=== PATIENT | female | born 1975 | race Two or more races ===

== ENCOUNTER → 2016-07-13 | Outpatient (CLI) | payer OTHER ==
--- NOTE | 2016-07-13 18:07 | MR ---
EXAMINATION TYPE: MR shoulder RT wo con DATE OF EXAM: 07/13/2016 5:59 PM COMPARISON: NONE HISTORY: pain with Limited ROM for over a year TECHNIQUE: Multiplanar, multisequence imaging of the right shoulder is performed without contrast. FINDINGS: Rotator Cuff: There is a complete tear of the anterior fibers of the supraspinatus tendon which is th rough thickness measuring approximately 1.4 cm in AP dimension and a length of 1.8 cm. Acromioclavicular Joint: Hypertrophic change of the AC joint noted. No significant impingement. Glenohumeral Joint: There is a small amount of fluid in the glenohumeral joint. Inferior glenohumeral ligament intact. Labrum: The labrum appears grossly intact given limitation of non-arthrogram study. Biceps Tendon: Biceps tendon is situated within the bicipital groove. There is increased intrasubstan ce signal seen within the intracapsular portion of the biceps tendon compatible tendinopathy and part ial intrasubstance tear. No retraction. Bone marrow signal: No focal abnormal marrow signal is appreciated. Other: No additional significant abnormality is appreciated. IMPRESSION: There is a large through thickness tear involving the distal margin of the supraspinatus tendon measu ring approximately 1.8 x 1.4 cm. Bicipital tendinosis with intrasubstance signal within the intracapsular portion of the tendon sugges tive of intrasubstance tear but no through thickness tear or retraction. AC joint arthropathy but no significant impingement.
--- NOTE | 2016-07-13 18:12 | MR ---
EXAMINATION TYPE: MR shoulder LT wo con DATE OF EXAM: 07/13/2016 5:59 PM COMPARISON: NONE HISTORY: pain with Limited ROM for over a year TECHNIQUE: Multiplanar, multisequence imaging of the left shoulder is performed without contrast. FINDINGS: Exam limited by patient motion artifact Rotator Cuff: There is a large through thickness tear involving the supraspinatus tendon measuring ap proximately 1.6 cm in AP dimension and extending a length of 1.8 cm. Infraspinatus tendon appears int act with degrees of tendinopathy. Subscapularis tendon demonstrates increased signal near its inserti on suspicious for partial tear. Acromioclavicular Joint: Arthropathy of the AC joint with narrowing and hypertrophic changes but no d efinite impingement Glenohumeral Joint: Small amount of fluid within the joint space. Inferior glenohumeral ligament inta ct. Labrum: Anterior superior labral tear noted.. Biceps Tendon: Tendon appears situated within the bicipital groove. However, there is intrasubstance signal throughout the biceps tendon compatible with intrasubstance tear or split tear and tendinopath y extending through the intracapsular portion and biceps anchor. Bone marrow signal: No focal abnormal marrow signal is appreciated. Other: No additional significant abnormality is appreciated. IMPRESSION: 1. Large through thickness tear distal margin supraspinatus tendon measuring 1.6 x 1.8 cm. 2. Subscapularis tendinopathy and partial tear near its insertion 3. Bicipital tendinosis with intrasubstance or split tear but no retraction extending from the bicipi zhanna groove to the bicipital anchor. 4. Anterior superior labral tear
== END | disposition home or self-care (01) ==
LOC: RADMRIMAIN 16:50
PROVIDERS: ATTEND Psychiatry & Neurology Pain Medicine
DX: M75.121 Complete rotator cuff tear or rupture of right shoulder, not specified as traumatic (principal); M25.511 Pain in right shoulder; M25.512 Pain in left shoulder

== ENCOUNTER 2016-08-07 00:35 | Emergency (ER) | payer OTHER ==
[2016-08-07] MEDS ORDERED: HYDROmorphone 1 MG/ML 1 ML SYRINGE IVP STA (01:21)
[2016-08-07] MEDS ORDERED: ONDANSETRON 4 MG/2 ML VIAL IVP STA (01:21)
[2016-08-07] MEDS ORDERED: SODIUM CHLORIDE 0.9% 1,000 ML IV STA (01:21)
[2016-08-07 01:47] LABS: Anisocytosis Slight; Basophils % (A) 1 %; CH 22.1; CHCM 30.6; Eosinophils # (A) 0.6 k/uL (0-0.7); Eosinophils % (A) 6 %; HCT 35.3 % (34.0-46.0); HGB 10.7 gm/dL (11.4-16.0); Hypochromasia Moderate; Luc # (Auto) 0.17; Luc % (Auto) 2; Lymphocytes # (A) 2.2 k/uL (1.0-4.8); Lymphocytes % (A) 24 %; MCHC 30.4 g/dL (31.0-37.0); MCV 72.4 fL (80.0-100.0); Microcytosis Moderate; Monocytes # (A) 0.5 k/uL (0-1.0); Monocytes % (A) 6 %; Neutrophils # (A) 5.8 k/uL (1.3-7.7); Neutrophils % (A) 62 %; RBC 4.88 m/uL (3.80-5.40); RDW 17.1 % (11.5-15.5); WBC 9.3 k/uL (3.8-10.6); WBC (Perox) 9.49
--- NOTE | 2016-08-07 01:52 | ED ---
Abdominal Pain HPI - General Chief Complaint: Abdominal Pain Stated Complaint: Stomach Pain Time Seen by Provider: 08/07/16 01:11 Source: patient, RN notes reviewed Mode of arrival: ambulatory Limitations: no limitations - History of Present Illness Initial Comments: Patient is a 41-year-old female chief complaint of right upper quadrant pain while she eats for the past 2-3 weeks. Patient reports that the pain occurs it directly after she eats. She does have a history of H. pylori. She denies any previous history of gallbladder problems. She also reports that she's had intermittent diarrhea over the past week. She denies any other symptoms including fever or chills. She denies any chest pain or shortness breath. Patient reports that the pain is only over the right upper quadrant denies any radiation towards the back. - Related Data Home Medications Medication Instructions Recorded Confirmed Gabapentin [Neurontin] 600 mg PO TID 01/13/15 12/26/15 Meloxicam [Mobic] 7.5 mg PO BID 01/13/15 12/26/15 Phentermine HCl [Adipex-P] 1 tab PO DAILY 12/26/15 12/26/15 Previous Rx's Medication Instructions Recorded Albuterol Inhaler [Ventolin Hfa 1 - 2 puff INHALATION Q6HR #1 08/05/15 Inhaler] inhaler Ondansetron Odt [Zofran ODT] 4 mg PO Q8HR PRN #10 tab 11/11/15 HYDROcodone/APAP 5-325MG [[place] 1 tab PO Q6HR PRN #12 tab 08/07/16 5-325] Ondansetron Odt [Zofran Odt] 4 mg PO Q8HR PRN #10 tab 08/07/16 Allergies Allergy/AdvReac Type Severity Reaction Status Date / Time No Known Allergies Allergy Verified 08/07/16 00:41 Review of Systems ROS Statement: Those systems with pertinent positive or pertinent negative responses have been documented in the HPI. ROS Other: All systems not noted in ROS Statement are negative. Past Medical History Past Medical History: Musculoskeletal Disorder, Osteoarthritis (OA) Additional Past Medical History / Comment(s): ANEMIA. SCOLIOSIS History of Any Multi-Drug Resistant Organisms: None Reported Past Surgical History: Appendectomy, Section, Tonsillectomy, Tubal Ligation Past Anesthesia/Blood Transfusion Reactions: No Reported Reaction Past Psychological History: ADD/ADHD Smoking Status: Former smoker Past Alcohol Use History: None Reported Additional Past Alcohol Use History / Comment(s): QUIT 07/2014 Past Drug Use History: None Reported - Past Family History Mother Family Medical History: No Reported History General Exam - General Exam Comments Initial Comments: Patient is a 41 year old female. Patient is in no acute distress. Limitations: no limitations General appearance: alert, in no apparent distress Head exam: Present: atraumatic, normocephalic, normal inspection Eye exam: Present: normal appearance, PERRL, EOMI. Absent: scleral icterus, conjunctival injection, periorbital swelling ENT exam: Present: normal exam, mucous membranes moist Neck exam: Present: normal inspection. Absent: tenderness, meningismus, lymphadenopathy Respiratory exam: Present: normal lung sounds bilaterally. Absent: respiratory distress, wheezes, rales, rhonchi, stridor Cardiovascular Exam: Present: regular rate, normal rhythm, normal heart sounds. Absent: systolic murmur, diastolic murmur, rubs, gallop, clicks GI/Abdominal exam: Present: soft, tenderness (mild RUQ tenderness. ), normal bowel sounds. Absent: distended, guarding, rebound, rigid Extremities exam: Present: normal inspection, full ROM, normal capillary refill. Absent: tenderness, pedal edema, joint swelling, calf tenderness Back exam: Present: normal inspection Neurological exam: Present: alert, oriented X3, CN II-XII intact Psychiatric exam: Present: normal affect, normal mood Skin exam: Present: warm, dry, intact, normal color. Absent: rash Course Vital Signs 08/07/16 08/07/16 00:39 02:57 Temperature 96.6 F L 98 F Pulse Rate 84 88 Respiratory 20 18 Rate Blood Pressure 137/77 140/74 O2 Sat by Pulse 98 98 Oximetry Medical Decision Making - Medical Decision Making Patient is a 41 year old female with intermittent RUQ pain with eating. She states the pain is crampy. Patient labs were reviewed and are negative for any acute processs. Patient will be given Rx for outpatient US, pain medication and nausea medication. PAtient understands return parameters and advised to follow up with GI specialist and PCP. Return parameters discussed. Patient will be diagnosed with biliary colic and advised to avoid fatty foods. - Lab Data Result diagrams: 08/07/16 01:35 08/07/16 01:35 Lab Results 08/07/16 08/07/16 08/07/16 Range/Units 01:35 01:35 02:13 WBC 9.3 (3.8-10.6) k/uL RBC 4.88 (3.80-5.40) m/uL Hgb 10.7 L (11.4-16.0) gm/dL Hct 35.3 (34.0-46.0) % MCV 72.4 L (80.0-100.0) fL MCH 22.0 L (25.0-35.0) pg MCHC 30.4 L (31.0-37.0) g/dL RDW 17.1 H (11.5-15.5) % Plt Count 255 (150-450) k/uL Neutrophils % 62 % Lymphocytes % 24 % Monocytes % 6 % Eosinophils % 6 % Basophils % 1 % Neutrophils # 5.8 (1.3-7.7) k/uL Lymphocytes # 2.2 (1.0-4.8) k/uL Monocytes # 0.5 (0-1.0) k/uL Eosinophils # 0.6 (0-0.7) k/uL Basophils # 0.0 (0-0.2) k/uL Hypochromasia Moderate Anisocytosis Slight Microcytosis Moderate Sodium 140 (137-145) mmol/L Potassium 3.8 (3.5-5.1) mmol/L Chloride 105 (98-107) mmol/L Carbon Dioxide 26 (22-30) mmol/L Anion Gap 9 mmol/L BUN 14 (7-17) mg/dL Creatinine 0.50 L (0.52-1.04) mg/dL Est GFR (MDRD) Af Amer >60 (>60 ml/min/1.73 sqM) Est GFR (MDRD) Non-Af >60 (>60 ml/min/1.73 sqM) Glucose 186 H (74-99) mg/dL Calcium 8.8 (8.4-10.2) mg/dL Total Bilirubin 0.4 (0.2-1.3) mg/dL AST 21 (14-36) U/L ALT 32 (9-52) U/L Alkaline Phosphatase 75 (38-126) U/L Total Protein 6.5 (6.3-8.2) g/dL Albumin 3.4 L (3.5-5.0) g/dL Amylase 38 (30-110) U/L Lipase 43 (23-300) U/L Urine Color Yellow Urine Appearance Clear (Clear) Urine pH 5.5 (5.0-8.0) Ur Specific [place] 1.024 (1.001-1.035) Urine Protein Trace H (Negative) Urine Glucose (UA) 4+ H (Negative) Urine Ketones Trace H (Negative) Urine Blood Negative (Negative) Urine Nitrate Negative (Negative) Urine Bilirubin Negative (Negative) Urine Urobilinogen 2.0 (<2.0) mg/dL Ur Leukocyte Esterase Negative (Negative) - Radiology Data Radiology results: report reviewed KUB is negative for any acute process. Disposition Clinical Impression: Biliary colic, Gastroenteritis Disposition: HOME SELF-CARE Condition: Good Instructions: Biliary Colic (ED), Abdominal Pain (ED) Additional Instructions: Patient instructed to avoid high fatty foods as this can exacerbate biliary colic. Patient advised to follow up with primary care provider within the next 2-3 days. Complete outpatient ultrasound. Return to the EC if any alarming signs or symptoms occur. Prescriptions: HYDROcodone/APAP 5-325MG [[place] 5-325] 1 tab PO Q6HR PRN #12 tab PRN Reason: Pain Ondansetron Odt [Zofran Odt] 4 mg PO Q8HR PRN #10 tab PRN Reason: Nausea Referrals: Jimmie Gutiérrez MD [Primary Care Provider] - 1-2 days Time of Disposition: 02:13
[2016-08-07 01:58] LABS: ALT 32 U/L (9-52); AST 21 U/L (14-36); Alkaline Phosphatase 75 U/L (38-126); Amylase 38 U/L (30-110); Anion Gap 9 mmol/L; Blood Urea Nitrogen 14 mg/dL (7-17); Calcium 8.8 mg/dL (8.4-10.2); Carbon Dioxide 26 mmol/L (22-30); Chloride 105 mmol/L (98-107); Glucose 186 mg/dL (74-99); Non-African American GFR(MDRD) >60 (>60 ml/min/1.73 sqM); Potassium 3.8 mmol/L (3.5-5.1); Sodium 140 mmol/L (137-145); Total Bilirubin 0.4 mg/dL (0.2-1.3); Total Protein 6.5 g/dL (6.3-8.2)
--- NOTE | 2016-08-07 02:23 | XR ---
EXAMINATION TYPE: XR KUB DATE OF EXAM: 08/07/2016 1:50 AM CLINICAL HISTORY: Right upper quadrant abdominal pain TECHNIQUE: 2 frontal upright radiographs of abdomen were obtained. COMPARISON: None. FINDINGS: There is mild gaseous distention of bowel loops with few air-fluid levels with mild ileus or enteriti s changes. No significant bowel obstruction is noted. There is no visceromegaly, pneumoperitoneum, or abnormal calcification appreciated. The lung bases are clear and the osseous structures are intact. S-shaped scoliosis is noted in the thoracolumbar spi ne. IMPRESSION: Mild ileus or enteritis changes. No significant bowel obstruction is noted.
[2016-08-07 02:24] LABS: Appearance,Urine Clear (Clear); Bilirubin,Urine Negative (Negative); Glucose,Urine (UA) 4+ (Negative); Ketones,Urine Trace (Negative); Leukocyte Esterase,Urine Negative (Negative); Nitrite,Urine Negative (Negative); PH, Urine 5.5 (5.0-8.0); Protein,Urine Trace (Negative); Specific Gravity,Urine 1.024 (1.001-1.035); UA Billing (MACRO vs. MICRO) CHEM
[2016-08-07 02:58] VITALS: BP 140/74; PULSE 88; RESP 18; TEMP 98
== END 2016-08-07 02:58 | disposition home or self-care (01) ==
LOC: EC 00:35
DX: K52.9 Noninfective gastroenteritis and colitis, unspecified (principal); K80.50 Calculus of bile duct without cholangitis or cholecystitis without obstruction; M19.90 Unspecified osteoarthritis, unspecified site; Z87.891 Personal history of nicotine dependence; Z79.899 Other long term (current) drug therapy
CPT/HCPCS: 36415; 80053; 82150; 83690; 85025; 81003; 74000; 99284; 96374; 96375; 96361; J2405; J1170; 76705

== ENCOUNTER → 2016-08-07 | Outpatient (CLI) | payer OTHER ==
--- NOTE | 2016-08-07 14:07 | US ---
EXAMINATION TYPE: US gallbladder DATE OF EXAM: 08/07/2016 1:40 PM COMPARISON: NONE CLINICAL HISTORY: RUQ pain,R10.11. EXAM MEASUREMENTS: Liver Length: 14.0 cm Gallbladder Wall: 0.2 cm CBD: 0.4 cm Right Kidney: 13.0 x 4.7 x 6.2 cm Patient was in ER last night, and came in today with an outpatient order Pancreas: not well visualized due to body habitus and bowel gas Liver: wnl Gallbladder: No stones seen Evidence for sonographic Wilkins's sign: Yes CBD: wnl Right Kidney: No hydronephrosis or masses seen IMPRESSION: No distinct abnormality appreciated.
== END | disposition home or self-care (01) ==
LOC: RADUSMAIN 13:16
PROVIDERS: ATTEND Physician Assistant Medical
DX: R10.11 Right upper quadrant pain (principal)
CPT/HCPCS: 76705

== ENCOUNTER → 2016-08-13 | Outpatient (CLI) | payer OTHER ==
--- NOTE | 2016-08-13 15:21 | NM ---
EXAMINATION TYPE: NM hepatobiliary w EF DATE OF EXAM: 08/13/2016 3:12 PM COMPARISON: NONE INDICATION: Right upper quadrant pain TECHNIQUE: After the intravenous administration of 5.33 mCi Tc 99m Mebrofenin hepatobiliary scintigra phy is performed. Images were obtained immediately post injection. FINDINGS: There is prompt uptake and excretion of radiotracer by the liver. Extrahepatic ducts are identified at minutes. The gallbladder is visualized within 8 minutes. Small bowel activity is noted within 63 minutes. At one hour 8 ounces of oral ensure plus is given to mimic CCK and gallbladder ejection fraction is c alculated at 86 %, which is elevated.. (Normal >35% and <80%.). IMPRESSION: 1. Elevated ejection fraction. Correlate for biliary hyperkinesia.
== END | disposition home or self-care (01) ==
LOC: RADNMMAIN 13:05
PROVIDERS: ATTEND Internal Medicine
DX: R10.11 Right upper quadrant pain (principal)
CPT/HCPCS: 78226; A9537

== ENCOUNTER 2016-09-06 06:34 | Day surgery (SDC) | payer OTHER ==
[2016-09-02 11:10] VITALS: BMI 38.9
[~2016-09-06 06:34] MED LIST: DEXAMETHASONE SOD PHOSPHATE 10 MG/ML 1 ML VIAL IV ONE; HEPARIN SODIUM,PORCINE 5,000 UNIT/ML 1 ML VIAL SQ ONE; LIDOCAINE 1% 20 ML VIAL (10MG/ML) FOR IV START INTRADERMA PRN; MIDAZOLAM 2 MG/2 ML VIAL IV PRN; SCOPOLAMINE 1.5MG/72HR PATCH TRANSDERM ONE; ceFAZolin 2 GM in SODIUM CHLORIDE 0.9% 100 ML IVPB ONE
[2016-09-06] MEDS ORDERED: BUPIVACAIN-EPI 0.25%-1:200,000 30 ML VIAL SQ ONE ×2 (07:17→08:09)
[2016-09-06] MEDS: LACTATED RINGERS 1,000 ML IV SCH ×2 (07:29→12:11)
[2016-09-06] MEDS: ONDANSETRON 4 MG/2 ML VIAL IVP ONE ×2 (07:31→08:48)
[2016-09-06] MEDS ORDERED: ROCURONIUM BROMIDE 10 MG/ML 10 ML VIAL IV ONE (07:44)
[2016-09-06] MEDS ORDERED: NEOSTIGMINE 1 MG/ML 10 ML VIAL ONE (07:44)
[2016-09-06] MEDS ORDERED: MIDAZOLAM 2 MG/2 ML VIAL ONE (07:44)
[2016-09-06] MEDS ORDERED: PROPOFOL 10 MG/ML 20 ML VIAL IV ONE (07:44)
[2016-09-06] MEDS ORDERED: fentaNYL (PF) 50 MCG/ML 2 ML AMP ONE (07:44)
[2016-09-06] MEDS ORDERED: ALBUTEROL INHALER 60 PUFF/8 GM INHALER INHALATION ONE (07:44)
[2016-09-06] MEDS ORDERED: GLYCOPYRROLATE 0.2 MG/ML 2 ML VIAL ONE (07:44)
[2016-09-06] MEDS ORDERED: SUCCINYLCHOLINE CHLORIDE 100 MG/5 ML SYR IV ONE (07:44)
[2016-09-06] MEDS ORDERED: LIDOCAINE 1% INJ 10MG/ML (20 ML MDV) ONE (07:44)
[2016-09-06] MEDS ORDERED: KETOROLAC 30 MG/ML 1 ML VIAL ONE (07:44)
--- NOTE | 2016-09-06 07:44 | P.GSHP ---
History of Present Illness H&P Date: 09/06/16 Chief Complaint: Right upper quadrant pain This is a 41-year-old female who's had complaints of right quadrant pain. Her recent HIDA scan shows an abnormally high ejection fraction consistent with biliary hyperkinesis. She presents today for laparoscopic cholecystectomy - Constitutional Constitutional: Reports as per HPI Past Medical History Past Medical History: Musculoskeletal Disorder, Osteoarthritis (OA) Additional Past Medical History / Comment(s): abd pain, Diarrhea, nausea, ANEMIA , SCOLIOSIS, History of Any Multi-Drug Resistant Organisms: None Reported Past Surgical History: Appendectomy, Section, Tonsillectomy, Tubal Ligation Past Anesthesia/Blood Transfusion Reactions: No Reported Reaction Past Psychological History: No Psychological Hx Reported Smoking Status: Former smoker Past Alcohol Use History: Occasional Additional Past Alcohol Use History / Comment(s): QUIT 07/2014, smoked less than 1ppd Past Drug Use History: None Reported - Past Family History Mother Family Medical History: No Reported History Medications and Allergies Home Medications Medication Instructions Recorded Confirmed Type Gabapentin [Neurontin] 600 mg PO TID 01/13/15 09/02/16 History Meloxicam [Mobic] 7.5 mg PO BID 01/13/15 09/02/16 History Phentermine HCl [Adipex-P] 1 tab PO DAILY 12/26/15 09/02/16 History metFORMIN HCL [Glucophage] 500 mg PO BID 09/06/16 09/06/16 History Allergies Allergy/AdvReac Type Severity Reaction Status Date / Time No Known Allergies Allergy Verified 09/06/16 06:48 Surgical - Exam Vital Signs Temp Pulse Resp BP Pulse Ox 97.9 F 83 16 115/79 97 09/06/16 06:56 09/06/16 06:56 09/06/16 06:56 09/06/16 06:56 09/06/16 06:56 - General well developed, no distress - Eyes PERRL - ENT normal pinna - Neck no masses - Respiratory normal expansion - Cardiovascular Rhythm: regular - Abdomen Abdomen: soft, non tender Assessment and Plan Plan: Abnormal HIDA scan Chronic cholecystitis We'll perform laparoscopic cholecystectomy
[2016-09-06 07:55] LABS: Glucose,Whole Blood 165 mg/dL (75-99)
--- NOTE | 2016-09-06 08:30 | P.OP ---
Date of Procedure: 09/06/16 Preoperative Diagnosis: Cholecystitis Postoperative Diagnosis: Cholecystitis Procedure(s) Performed: Laparoscopic cholecystectomy Anesthesia: DAVID Surgeon: Peewee Newell Estimated Blood Loss (ml): 5 Pathology: other (Gallbladder) Condition: stable Disposition: PACU Description of Procedure: The patient was placed on the operating table. The patient received a general endotracheal tube anesthesia. The patients abdomen was prepped and draped in the usual sterile fashion. Through an infraumbilical stab incision, the fascia of the anterior abdominal wall was grasped with a pair of Kochers and then the Veress needle was placed in the peritoneal cavity. Position of the Veress needle was confirmed with positive drop test. The abdomen was then insufflated. After adequate insufflation, the 10 mm trocar was placed in the peritoneal cavity. Following this the laparoscope was placed in the peritoneal cavity. The patient was placed in the head-up, right side up position and then a 5 mm trocar was placed in the right lateral and right subcostal position under direct visualization. A 8 mm trocar was placed in the epigastric position. The gallbladder was grasped in the fundus and infundibulum. Traction on the gallbladder was placed in the lateral and the cephalad positions. The triangle of Calot was visualized.. The cystic duct was bluntly dissected until the union of the cystic duct and common bile duct was seen. The cystic duct was then divided and sealed with the Harmonic scissors. A PDS Endoloop was then placed throughout the cystic duct stump. The cystic artery divided and sealed with the Harmonic scissors. The gallbladder was then removed from the liver bed using Harmonic scissors. The gallbladder was then extracted through the epigastric port site. Operative field was checked for any bleeding spots and Harmonic scissors was used to coagulate the liver bed. The abdomen was irrigated. The trocars were removed. The skin was closed using interrupted 3-0 Vicryl suture. Dermabond dressing were applied. The patient tolerated the procedure well.
[2016-09-06 08:43] VITALS: TEMP 97.1
[2016-09-06] MEDS: HYDROmorphone 1 MG/ML 1 ML SYRINGE IVP PRN ×4 (08:48→09:13)
[2016-09-06] MEDS ORDERED: HYDROcodone/APAP 7.5-325MG 1 EACH TAB PO ONE (10:04)
[2016-09-06 10:27] VITALS: RESP 18
[2016-09-06 11:58] VITALS: BP 124/82; PULSE 69
[2016-09-06] MEDS ORDERED: ALBUTEROL NEBULIZED 2.5 MG/3 ML INHALATION ONE (12:04)
== END 2016-09-06 12:33 | disposition home or self-care (01) ==
LOC: OR 06:34
PROVIDERS: ATTEND Surgery
DX: K81.1 Chronic cholecystitis (principal); M19.90 Unspecified osteoarthritis, unspecified site; J45.909 Unspecified asthma, uncomplicated; Z79.1 Long term (current) use of non-steroidal anti-inflammatories (NSAID); Z79.84 Long term (current) use of oral hypoglycemic drugs; Z79.891 Long term (current) use of opiate analgesic; Z79.899 Other long term (current) drug therapy; Z87.891 Personal history of nicotine dependence
CPT/HCPCS: 47562; 81025; 88304; J2250; J1644; J1100; J2710; J0690; J2405; J2001; J3010; J1885; J1170; J0330; J2704

== ENCOUNTER 2016-09-06 19:52 | Inpatient (IN) | payer OTHER ==
[2016-09-06] MEDS ORDERED: IPRATROPIUM-ALBUTEROL 3 ML NEB INHALATION STA (20:22)
[2016-09-06] MEDS ORDERED: SODIUM CHLORIDE 0.9% 1,000 ML IV STA (20:22)
--- NOTE | 2016-09-06 20:25 | ED ---
SOB HPI - General Chief Complaint: Shortness of Breath Stated Complaint: Post Op/SOB Time Seen by Provider: 09/06/16 20:12 Source: patient, RN notes reviewed Mode of arrival: wheelchair Limitations: no limitations - History of Present Illness Initial Comments: This is a 41-year-old female who just had a laparoscopic cholecystectomy done this morning and was discharged just after 12 noon who presents with complaints of shortness of breath since she awoke from anesthesia she's had some chills minimal cough no phlegm production. She states she just can't get her breath. She is a former sometime smoker she's been using her inhaler at home without much relief. She states her abdomen doesn't really hurt too much. She does not see any problem with the incision sites at this time. Other complaints at this time are voiced per family the patient apparently had trouble waking up after surgery from the pain medication that he members believe she still not fully awake at this time. MD Complaint: shortness of breath - Related Data Home Medications Medication Instructions Recorded Confirmed Gabapentin [Neurontin] 300 mg PO TID 01/13/15 09/06/16 Meloxicam [Mobic] 7.5 mg PO BID 01/13/15 09/06/16 Albuterol Inhaler [Ventolin Hfa 1 - 2 puff INHALATION RT-Q6H PRN 09/06/16 Inhaler] HYDROcodone/APAP 7.5-325MG [[place] 1 tab PO Q4H PRN 09/06/16 09/06/16 7.5] metFORMIN HCL [Glucophage] 500 mg PO BID 09/06/16 09/06/16 Allergies Allergy/AdvReac Type Severity Reaction Status Date / Time No Known Allergies Allergy Verified 09/06/16 20:47 Review of Systems ROS Statement: Those systems with pertinent positive or pertinent negative responses have been documented in the HPI. ROS Other: All systems not noted in ROS Statement are negative. Past Medical History Past Medical History: Musculoskeletal Disorder, Osteoarthritis (OA) Additional Past Medical History / Comment(s): ANEMIA, SCOLIOSIS, History of Any Multi-Drug Resistant Organisms: None Reported Past Surgical History: Appendectomy, Section, Cholecystectomy, Tonsillectomy, Tubal Ligation Past Anesthesia/Blood Transfusion Reactions: No Reported Reaction Past Psychological History: No Psychological Hx Reported Smoking Status: Former smoker Past Alcohol Use History: Occasional Additional Past Alcohol Use History / Comment(s): QUIT 07/2014, smoked less than 1ppd Past Drug Use History: None Reported - Past Family History Mother Family Medical History: No Reported History General Exam - General Exam Comments Initial Comments: This is a well-developed well-nourished awake alert female Limitations: no limitations General appearance: alert, in no apparent distress Head exam: Present: atraumatic, normocephalic, normal inspection Eye exam: Present: normal appearance, PERRL, EOMI. Absent: scleral icterus, conjunctival injection, periorbital swelling ENT exam: Present: normal exam, mucous membranes moist Neck exam: Present: normal inspection. Absent: tenderness, meningismus, lymphadenopathy Respiratory exam: Present: normal lung sounds bilaterally, decreased breath sounds. Absent: respiratory distress, wheezes, rales, rhonchi, stridor Cardiovascular Exam: Present: regular rate, normal rhythm, normal heart sounds. Absent: systolic murmur, diastolic murmur, rubs, gallop, clicks GI/Abdominal exam: Present: soft, normal bowel sounds. Absent: distended, tenderness, guarding, rebound, rigid Extremities exam: Present: normal inspection, full ROM, normal capillary refill. Absent: tenderness, pedal edema, joint swelling, calf tenderness Back exam: Present: normal inspection Neurological exam: Present: alert, oriented X3, CN II-XII intact Psychiatric exam: Present: normal affect, normal mood Skin exam: Present: warm, dry, intact, normal color. Absent: rash Course Vital Signs 09/06/16 09/06/16 09/06/16 19:53 21:00 21:09 Temperature 98.5 F Pulse Rate 79 77 77 Respiratory 18 Rate Blood Pressure 150/78 O2 Sat by Pulse 100 Oximetry - Reevaluation(s) Reevaluation #1: 09/06/16 21:43 Patient states she still is I feel much better after the DuoNeb treatment. Medical Decision Making - Medical Decision Making I did discuss findings with patient family she still feeling somewhat dyspneic and slightly nauseated. I did discuss case with Dr. Horowitz who is covering for Dr. Newell the patient will be admitted to the hospitalist service with Dr. Newell on consult. - Lab Data Result diagrams: 09/06/16 20:40 09/06/16 20:40 Lab Results 09/06/16 09/06/16 09/06/16 Range/Units 20:40 20:40 20:40 WBC 16.0 H (3.8-10.6) k/uL RBC 4.90 (3.80-5.40) m/uL Hgb 10.9 L (11.4-16.0) gm/dL Hct 35.5 (34.0-46.0) % MCV 72.4 L (80.0-100.0) fL MCH 22.1 L (25.0-35.0) pg MCHC 30.6 L (31.0-37.0) g/dL RDW 17.2 H (11.5-15.5) % Plt Count 248 (150-450) k/uL Neutrophils % 91 % Lymphocytes % 6 % Monocytes % 2 % Eosinophils % 0 % Basophils % 0 % Neutrophils # 14.6 H (1.3-7.7) k/uL Lymphocytes # 0.9 L (1.0-4.8) k/uL Monocytes # 0.3 (0-1.0) k/uL Eosinophils # 0.0 (0-0.7) k/uL Basophils # 0.0 (0-0.2) k/uL Hypochromasia Moderate Anisocytosis Slight Microcytosis Moderate PT (9.0-12.0) sec INR (<1.1) APTT (22.0-30.0) sec Sodium 137 (137-145) mmol/L Potassium 4.6 (3.5-5.1) mmol/L Chloride 99 (98-107) mmol/L Carbon Dioxide 24 (22-30) mmol/L Anion Gap 14 mmol/L BUN 9 (7-17) mg/dL Creatinine 0.53 (0.52-1.04) mg/dL Est GFR (MDRD) Af Amer >60 (>60 ml/min/1.73 sqM) Est GFR (MDRD) Non-Af >60 (>60 ml/min/1.73 sqM) Glucose 232 H (74-99) mg/dL Calcium 9.5 (8.4-10.2) mg/dL Magnesium 1.4 L (1.6-2.3) mg/dL Total Bilirubin 0.6 (0.2-1.3) mg/dL AST 29 (14-36) U/L ALT 24 (9-52) U/L Alkaline Phosphatase 78 (38-126) U/L Total Creatine Kinase 77 (30-135) U/L CK-MB (CK-2) 0.6 (0.0-2.4) ng/mL CK-MB (CK-2) Rel Index 0.8 Troponin I <0.012 (0.000-0.034) ng/mL NT-Pro-B Natriuret Pep pg/mL Total Protein 7.4 (6.3-8.2) g/dL Albumin 4.1 (3.5-5.0) g/dL 09/06/16 09/06/16 Range/Units 20:40 20:40 WBC (3.8-10.6) k/uL RBC (3.80-5.40) m/uL Hgb (11.4-16.0) gm/dL Hct (34.0-46.0) % MCV (80.0-100.0) fL MCH (25.0-35.0) pg MCHC (31.0-37.0) g/dL RDW (11.5-15.5) % Plt Count (150-450) k/uL Neutrophils % % Lymphocytes % % Monocytes % % Eosinophils % % Basophils % % Neutrophils # (1.3-7.7) k/uL Lymphocytes # (1.0-4.8) k/uL Monocytes # (0-1.0) k/uL Eosinophils # (0-0.7) k/uL Basophils # (0-0.2) k/uL Hypochromasia Anisocytosis Microcytosis PT 10.2 (9.0-12.0) sec INR 1.0 (<1.1) APTT 21.9 L (22.0-30.0) sec Sodium (137-145) mmol/L Potassium (3.5-5.1) mmol/L Chloride (98-107) mmol/L Carbon Dioxide (22-30) mmol/L Anion Gap mmol/L BUN (7-17) mg/dL Creatinine (0.52-1.04) mg/dL Est GFR (MDRD) Af Amer (>60 ml/min/1.73 sqM) Est GFR (MDRD) Non-Af (>60 ml/min/1.73 sqM) Glucose (74-99) mg/dL Calcium (8.4-10.2) mg/dL Magnesium (1.6-2.3) mg/dL Total Bilirubin (0.2-1.3) mg/dL AST (14-36) U/L ALT (9-52) U/L Alkaline Phosphatase (38-126) U/L Total Creatine Kinase (30-135) U/L CK-MB (CK-2) (0.0-2.4) ng/mL CK-MB (CK-2) Rel Index Troponin I (0.000-0.034) ng/mL NT-Pro-B Natriuret Pep 133 pg/mL Total Protein (6.3-8.2) g/dL Albumin (3.5-5.0) g/dL - EKG Data -: EKG Interpreted by Me EKG shows normal: sinus rhythm, axis, intervals, QRS complexes, ST-T waves (EKG shows a normal sinus rhythm of 76 appear of 01 58 QRS duration 92 QT/QTC of 362/ [address]-T wave changes.) Rate: normal - Radiology Data Radiology results: report reviewed (I did review the x-ray report or is evidence of interstitial infiltrates were not previously seen), image reviewed Disposition Clinical Impression: Interstitial pneumonia, Acute bronchospasm, Status post cholecystectomy, Hypomagnesemia, Leukocytosis Disposition: ADMITTED IP TO THIS [facility] Condition: Stable
[2016-09-06 20:50] LABS: Anisocytosis Slight; Basophils % (A) 0 %; CHCM 30.5; Eosinophils % (A) 0 %; HCT 35.5 % (34.0-46.0); HDW 2.85; HGB 10.9 gm/dL (11.4-16.0); Hypochromasia Moderate; Luc # (Auto) 0.08; Luc % (Auto) 1; Lymphocytes # (A) 0.9 k/uL (1.0-4.8); Lymphocytes % (A) 6 %; MCH 22.1 pg (25.0-35.0); MCHC 30.6 g/dL (31.0-37.0); MCV 72.4 fL (80.0-100.0); Microcytosis Moderate; Monocytes # (A) 0.3 k/uL (0-1.0); Monocytes % (A) 2 %; Neutrophils # (A) 14.6 k/uL (1.3-7.7); Neutrophils % (A) 91 %; RDW 17.2 % (11.5-15.5); WBC (Perox) 16.49
--- NOTE | 2016-09-06 20:59 | XR ---
EXAMINATION TYPE: XR chest 2V DATE OF EXAM: 09/06/2016 8:55 PM COMPARISON: 11/11/2015 HISTORY: Short of breath TECHNIQUE: Frontal and lateral views of the chest are obtained. FINDINGS: There is coarsening of interstitial markings in the mid and lower lung nunez. There is no gross heart failure. There are no hilar masses. Heart size is normal. Mediastinum is normal. There a re chest leads. There is no sign of pleural effusion. IMPRESSION: There are mild interstitial infiltrates in the lower lobes that appear new compared to o ld exam. Normal heart.
[2016-09-06 21:00] LABS: ALT 24 U/L (9-52); AST 29 U/L (14-36); Alkaline Phosphatase 78 U/L (38-126); Anion Gap 14 mmol/L; Blood Urea Nitrogen 9 mg/dL (7-17); Calcium 9.5 mg/dL (8.4-10.2); Carbon Dioxide 24 mmol/L (22-30); Chloride 99 mmol/L (98-107); Glucose 232 mg/dL (74-99); Magnesium 1.4 mg/dL (1.6-2.3); Non-African American GFR(MDRD) >60 (>60 ml/min/1.73 sqM); Potassium 4.6 mmol/L (3.5-5.1); Sodium 137 mmol/L (137-145); Total Bilirubin 0.6 mg/dL (0.2-1.3); Total Protein 7.4 g/dL (6.3-8.2)
[2016-09-06 21:08] LABS: Partial Thromboplastin Time 21.9 sec (22.0-30.0); Prothrombin Time 10.2 sec (9.0-12.0)
[2016-09-06] MEDS ORDERED: MAGNESIUM SULFATE-D5W PMX 1 GM in DEXTROSE/WATER 1 100ML.BAG IVPB ONE (21:16)
[2016-09-06 21:18] LABS: Creatine Kinase 77 U/L (30-135)
[2016-09-06 21:31] LABS: Creatine Kinase MB 0.6 ng/mL (0.0-2.4); Troponin I <0.012 ng/mL (0.000-0.034)
[2016-09-06] MEDS ORDERED: PIPERACILLIN-TAZOBACTAM 3.375 GM in DEXTROSE/WATER 1 50ML.BAG IVPB STA (21:42)
[2016-09-06] MEDS ORDERED: LEVOFLOXACIN 750MG-D5W PMX 750 MG in DEXTROSE/WATER 1 150ML.BAG IVPB STA (21:49)
[2016-09-06] MEDS ORDERED: PNEUMONIA PROTOCOL UTILIZED 1 EACH MISC PO PRN (21:49)
[2016-09-06] MEDS ORDERED: ONDANSETRON 4 MG/2 ML VIAL IVP PRN (21:55)
[2016-09-06] MEDS: HYDROcodone/APAP 7.5-325MG 1 EACH TAB PO PRN (23:00)
[2016-09-06 23:25] VITALS: BMI 38.9
[2016-09-06] MEDS: IPRATROPIUM-ALBUTEROL 3 ML NEB INHALATION SCH (23:26)
[2016-09-06 23:45] LABS: Hemoglobin A1C 8.3 % (4.2-6.1)
[2016-09-07] MEDS: PIPERACILLIN-TAZOBACTAM 3.375 GM in DEXTROSE/WATER 1 50ML.BAG IVPB SCH ×2 (00:32→07:49)
[2016-09-07] MEDS: GABAPENTIN 300 MG CAP PO SCH ×4 (00:32→20:17)
[2016-09-07] MEDS: SODIUM CHLORIDE 0.9% 1,000 ML IV SCH ×3 (00:35→20:17)
[2016-09-07] MEDS: IPRATROPIUM-ALBUTEROL 3 ML NEB INHALATION SCH ×6 (04:55→23:26)
[2016-09-07] MEDS: HYDROcodone/APAP 7.5-325MG 1 EACH TAB PO PRN ×3 (05:06→15:30)
--- NOTE | 2016-09-07 06:43 | XR ---
EXAMINATION TYPE: XR chest 2V DATE OF EXAM: 09/07/2016 6:33 AM COMPARISON: Chest x-ray from yesterday HISTORY: Shortness of breath and pneumonia progress study, cholecystectomy surgery 2 days ago. TECHNIQUE: Frontal and lateral views of the chest are obtained. FINDINGS: Exam is slightly suboptimal secondary to patient's large body habitus. There is no focal a ir space opacity, pleural effusion, or pneumothorax seen on current study. Improved aeration bilatera l lower lungs is seen. The cardiac silhouette size is within normal limits. The osseous structures are intact. IMPRESSION: No new suspicious acute infiltrate identified on current study.
[2016-09-07 07:15] LABS: Glucose,Whole Blood 212 mg/dL (75-99)
[2016-09-07] MEDS: INSULIN LISPRO (humaLOG) 300 UNIT/3 ML VIAL SQ SCH ×4 (07:48→20:17)
[2016-09-07] MEDS: MELOXICAM 7.5 MG TAB PO SCH ×2 (07:50→20:49)
[2016-09-07 10:01] LABS: Anion Gap 14 mmol/L; Blood Urea Nitrogen 7 mg/dL (7-17); Calcium 8.5 mg/dL (8.4-10.2); Carbon Dioxide 20 mmol/L (22-30); Chloride 104 mmol/L (98-107); Glucose 227 mg/dL (74-99); Non-African American GFR(MDRD) >60 (>60 ml/min/1.73 sqM); Potassium 3.8 mmol/L (3.5-5.1); Sodium 138 mmol/L (137-145)
[2016-09-07 10:02] LABS: Anisocytosis Slight; Basophils % (A) 0 %; CH 21.7; CHCM 29.2; Eosinophils # (A) 0.1 k/uL (0-0.7); Eosinophils % (A) 1 %; HCT 32.3 % (34.0-46.0); HDW 2.73; HGB 9.6 gm/dL (11.4-16.0); Hypochromasia Marked; Luc # (Auto) 0.21; Luc % (Auto) 2; Lymphocytes # (A) 2.1 k/uL (1.0-4.8); Lymphocytes % (A) 18 %; MCH 22.2 pg (25.0-35.0); MCHC 29.7 g/dL (31.0-37.0); MCV 74.8 fL (80.0-100.0); Mean Platelet Volume 8.2; Microcytosis Moderate; Monocytes # (A) 0.6 k/uL (0-1.0); Monocytes % (A) 5 %; Neutrophils # (A) 8.6 k/uL (1.3-7.7); Neutrophils % (A) 74 %; RBC 4.33 m/uL (3.80-5.40); RDW 17.5 % (11.5-15.5); WBC 11.6 k/uL (3.8-10.6); WBC (Perox) 12.36
[2016-09-07 11:32] LABS: Glucose,Whole Blood 191 mg/dL (75-99)
[2016-09-07] MEDS ORDERED: RX INFO: IV CONTRAST WAS GIVEN 1 EACH MISC MISCELLANE PRN (12:22)
--- NOTE | 2016-09-07 13:13 | CT ---
CT CHEST FOR PULMONARY EMBOLISM. EXAMINATION TYPE: CT chest angio for PE DATE OF EXAM: 09/07/2016 12:58 PM INDICATION: SOB, post op Cholecystectomy CT DLP: 425.3 mGycm, Automated exposure control for dose reduction was used. CONTRAST: Patient injected with 100 ml mL of Omnipaque 350. COMPARISON: NONE TECHNIQUE: CT of the chest is performed on a spiral scan at 2 mm thick sections. Study is performed with intravenous contrast timed for evaluation for pulmonary embolism. This will limit additional po rtions of the evaluation. 3-D MIP images reconstructed by the technologist are reviewed on the compu ter in the coronal and sagittal planes. FINDINGS: No persistent filling defects are evident to suggest an acute pulmonary embolism. No mediastinal or hilar adenopathy enlarged by CT criteria is evident. The ascending aorta diameter at the level of the main pulmonary artery is 3.5 cm. The main pulmonary artery diameter at the bifur cation is 3.1 cm. Lung windows are clear. Limited CT section through the upper abdomen are unremarkable. IMPRESSIONS: 1. No acute pulmonary embolism.
--- NOTE | 2016-09-07 13:33 | P.GSCN ---
History of Present Illness Consult date: 09/07/16 Reason for Consult: Post cholecystectomy, interstitial pneumonia Requesting physician: Edmond Phillips History of present illness: Patient is a 41-year-old female with medical history significant for biliary hyperkinesia status post laparoscopic cholecystectomy on 09/06/2016. Patient tolerated procedure well and was discharged home. Patient reports that she was unable to take a deep breath and felt chest tightness after the surgery which didn't improve with her home inhaler. Patient presented to the emergency department around 8 PM with complaints of dyspnea while admission x-ray showing possible interstitial pneumonia. Patient did have evidence of leukocytosis with WBC count of 16 and was started on IV antibiotics. Repeat chest x-ray from this morning shows improved aeration of bilateral lower lungs. CT angiogram negative for pulmonary embolism. On exam, patient continues to complain of dyspnea with chest feeling tight. Patient reports occasional chills but no fevers. Denies nausea, vomiting, or chest pain. Patient reports minimal incisional pain. Patient reports burping without flatus or bowel movements. Patient is tolerating a clear liquid diet. Patient remains afebrile. Leukocytosis improved this morning. Past Medical History Past Medical History: Diabetes Mellitus, Hypertension, Musculoskeletal Disorder , Osteoarthritis (OA) Additional Past Medical History / Comment(s): ANEMIA, SCOLIOSIS, History of Any Multi-Drug Resistant Organisms: None Reported Past Surgical History: Appendectomy, Section, Cholecystectomy, Tonsillectomy, Tubal Ligation Additional Past Surgical History / Comment(s): bilateral carpal tunnel surgery Past Anesthesia/Blood Transfusion Reactions: No Reported Reaction Past Psychological History: No Psychological Hx Reported Smoking Status: Former smoker Past Alcohol Use History: Occasional Additional Past Alcohol Use History / Comment(s): QUIT 07/2014, smoked less than 1ppd Past Drug Use History: None Reported - Past Family History Father Family Medical History: CVA/TIA, Diabetes Mellitus Mother Family Medical History: No Reported History Medications and Allergies Home Medications Medication Instructions Recorded Confirmed Type Gabapentin [Neurontin] 300 mg PO TID 01/13/15 09/06/16 History Meloxicam [Mobic] 7.5 mg PO BID 01/13/15 09/06/16 History Albuterol Inhaler [Ventolin Hfa 1 - 2 puff INHALATION RT-Q6H PRN 09/06/16 History Inhaler] HYDROcodone/APAP 7.5-325MG [[place] 1 tab PO Q4H PRN 09/06/16 09/06/16 History 7.5] metFORMIN HCL [Glucophage] 500 mg PO BID 09/06/16 09/06/16 History Allergies Allergy/AdvReac Type Severity Reaction Status Date / Time No Known Allergies Allergy Verified 09/06/16 20:47 Surgical - Exam Vital Signs Temp Pulse Resp BP Pulse Ox 98.5 F 79 18 150/78 100 09/06/16 19:53 09/06/16 19:53 09/06/16 19:53 09/06/16 19:53 09/06/16 19:53 GENERAL: Pt awake and alert, well-appearing, well-nourished, and in no acute distress. HEAD: Atraumatic, normocephalic. EYES: Pupils equal, round, and reactive to light, extraocular movements intact, sclera anicteric, conjunctiva are normal. ENT: Moist mucous membranes. NECK:Normal range of motion, supple without lymphadenopathy or JVD. LUNGS: Breath sounds diminished to auscultation bilaterally. No wheezes, rales , or rhonchi. HEART: Heart S1, S2, no S3 or S4. Regular rate and rhythm. No murmurs, rubs or gallops. ABDOMEN: Soft, obese, nontender, nondistended, hypoactive bowel sounds. No guarding, no rebound. Laparoscopic surgical incisions dry and intact, no erythema or drainage. EXTREMITIES: 2+ peripheral pulses. No edema. No calf tenderness. NEUROLOGICAL: Pt oriented x 3. Cranial nerves II through XII grossly intact. Strength and sensation grossly intact. PSYCH: Normal mood, normal affect. SKIN: Warm, dry, intact. Results - Labs 09/07/16 09:08 09/07/16 09:08 Abnormal Lab Results - Last 24 Hours (Table) 09/07/16 09/07/16 09/07/16 Range/Units 07:12 09:08 09:08 WBC 11.6 H (3.8-10.6) k/uL Hgb 9.6 L (11.4-16.0) gm/dL Hct 32.3 L (34.0-46.0) % MCV 74.8 L (80.0-100.0) fL MCH 22.2 L (25.0-35.0) pg MCHC 29.7 L (31.0-37.0) g/dL RDW 17.5 H (11.5-15.5) % Neutrophils # 8.6 H (1.3-7.7) k/uL Carbon Dioxide 20 L (22-30) mmol/L Creatinine 0.49 L (0.52-1.04) mg/dL Glucose 227 H (74-99) mg/dL POC Glucose (mg/dL) 212 H (75-99) mg/dL 09/07/16 Range/Units 11:30 WBC (3.8-10.6) k/uL Hgb (11.4-16.0) gm/dL Hct (34.0-46.0) % MCV (80.0-100.0) fL MCH (25.0-35.0) pg MCHC (31.0-37.0) g/dL RDW (11.5-15.5) % Neutrophils # (1.3-7.7) k/uL Carbon Dioxide (22-30) mmol/L Creatinine (0.52-1.04) mg/dL Glucose (74-99) mg/dL POC Glucose (mg/dL) 191 H (75-99) mg/dL Diabetes panel 09/07/16 Range/Units 09:08 Sodium 138 (137-145) mmol/L Potassium 3.8 (3.5-5.1) mmol/L Chloride 104 (98-107) mmol/L Carbon Dioxide 20 L (22-30) mmol/L BUN 7 (7-17) mg/dL Creatinine 0.49 L (0.52-1.04) mg/dL Glucose 227 H (74-99) mg/dL Calcium 8.5 (8.4-10.2) mg/dL Calcium panel 09/07/16 Range/Units 09:08 Calcium 8.5 (8.4-10.2) mg/dL Pituitary panel 09/07/16 Range/Units 09:08 Sodium 138 (137-145) mmol/L Potassium 3.8 (3.5-5.1) mmol/L Chloride 104 (98-107) mmol/L Carbon Dioxide 20 L (22-30) mmol/L BUN 7 (7-17) mg/dL Creatinine 0.49 L (0.52-1.04) mg/dL Glucose 227 H (74-99) mg/dL Calcium 8.5 (8.4-10.2) mg/dL Adrenal panel 09/07/16 Range/Units 09:08 Sodium 138 (137-145) mmol/L Potassium 3.8 (3.5-5.1) mmol/L Chloride 104 (98-107) mmol/L Carbon Dioxide 20 L (22-30) mmol/L BUN 7 (7-17) mg/dL Creatinine 0.49 L (0.52-1.04) mg/dL Glucose 227 H (74-99) mg/dL Calcium 8.5 (8.4-10.2) mg/dL - Imaging Chest x-ray: report reviewed CT scan - chest: report reviewed Assessment and Plan Plan: Impression: 1. Biliary hypokinesis status post lap scopic cholecystectomy on 09/06/2016. 2. Shortness of breath with initial chest x-ray suggestive of for interstitial pneumonia; follow-up CT chest negative for pulmonary embolism with lung windows clear. Plan: 1. Continue to monitor patient. Continue supportive treatment and pain management. Encourage ambulation. Will advance diet to low-fat. Encourage incentive spirometry. Continue to follow with medical team. The above impression and plan have been discussed and directed by Dr. Newell. Jose BOX acting as scribe for Dr. Newell.
--- NOTE | 2016-09-07 14:43 | HP ---
DATE OF ADMISSION: A 41-year-old underwent laparoscopic surgery yesterday at noon and came back a few hours later with the complaints of shortness of breath and pain in the back, increases more so when she takes a deep breath, was complaining of dry cough without any sputum production. Patient denied any fever, chills. Patient denied any nausea, vomiting and patient denied any orthopnea, PND. Patient has normal d-dimer. Patient has elevated WBC count and on lung exam patient does have history of asthma, but no wheezing on exam. Patient was started on antibiotic treatment with Zosyn and levofloxacin for pneumonia, although a chest x-ray is not consistent with pneumonia. I discontinued Zosyn and patient will continue on Levaquin until we investigate further. Because of her symptoms of pain that increases with deep breathing and upper back pain that increases with deep breathing, I will get a CT angiogram of chest to rule out any pulmonary embolism, which also will help me with pneumonia. Chest x-ray yesterday was read as interstitial pattern. Patient is morbidly obese. Because of the soft tissue appearance, it looks like patient has some pulmonary edema although clinically does not have any pulmonary edema. REVIEW OF SYSTEMS: CONSTITUTIONAL: No fever, no malaise, no fatigue. HEENT: No recent visual problems or hearing problems. Denied any sore throat. CARDIOVASCULAR: No chest pain, orthopnea, PND, no palpitations, no syncope. PULMONARY: As described in HPI. GASTROINTESTINAL: No diarrhea, no nausea, no vomiting, no abdominal pain. Normoactive bowel sounds. NEUROLOGICAL: No headaches, no weakness, no numbness. HEMATOLOGICAL: Denies any bleeding or petechiae. GENITOURINARY: Denies any burning micturition, frequency, or urgency. MUSCULOSKELETAL/RHEUMATOLOGICAL: Denies any joint pain, swelling, or any muscle pain. ENDOCRINE: Denies any polyuria or polydipsia. The rest of the 14 point review of systems is negative. Home medications include: 1. Gabapentin. 2. Meloxicam. 3. Albuterol. 4. Hydrocodone. 5. Acetaminophen. 6. Metformin, which will be held now for CT angiogram of the chest and patient will be on sliding scale insulin. ALLERGIES: No known drug allergies. PAST MEDICAL HISTORY: Significant for diabetes mellitus, peripheral neuropathy, appendectomy, section, cholecystectomy, tonsillectomy, tubal ligation surgery in the past. SOCIAL HISTORY: Former smoker. Quit smoking in July of 2014. Denied any alcohol abuse or any drug abuse. FAMILY HISTORY: Denied any family history of coronary artery disease, hypertension in the family. Family history is significant for diabetes mellitus. PHYSICAL EXAMINATION: VITAL SIGNS: Temperature 97.7, pulse of 90, respiratory rate of 16, blood pressure is 108/64, saturating at 96% on 2 L of O2 by nasal cannula. GENERAL: Obese, alert and oriented x3. HEENT: Pupils are round and equally reacting to light. EOMI. No scleral icterus. No conjunctival pallor. Normocephalic, atraumatic. No pharyngeal erythema. No thyromegaly. CARDIOVASCULAR: S1 and S2 present. No murmurs, rubs, or gallops. PULMONARY: Chest is clear to auscultation, no wheezing or crackles. ABDOMEN: Soft, nontender, nondistended, normoactive bowel sounds. No palpable organomegaly. MUSCULOSKELETAL: No joint swelling or deformity. EXTREMITIES: No cyanosis, clubbing, or pedal edema. NEUROLOGICAL: Gross neurological examination did not reveal any focal deficits. SKIN: No rashes. LABORATORY DATA: CBC, CMP are abnormal for elevated WBC count of 16,000, came down to 11,600. ASSESSMENT AND PLAN: 1. Shortness of breath, which is unexplained along pleuritic chest pain. I will obtain a CT angio of the chest to rule out pulmonary embolism. The other possibility is gas-related to carbonate Axid insufflation during surgery can cause such a pain as well. First will rule out pulmonary embolism. 2. Hypomagnesemia. Magnesium will be supplemented. 3. History of asthma without any acute exacerbation. 4. Possibility of interstitial pneumonia cannot be ruled out, although my suspicion is significantly low for that. 5. Gastroesophageal reflux disease. 6. Diabetes mellitus, will use sliding scale insulin. Avoid metformin at this point of time.
[2016-09-07 16:48] LABS: Glucose,Whole Blood 239 mg/dL (75-99)
[2016-09-07 20:17] LABS: Glucose,Whole Blood 233 mg/dL (75-99)
[2016-09-07] MEDS ORDERED: LEVOFLOXACIN 750 MG TAB PO SCH (21:00)
[2016-09-08] MEDS: IPRATROPIUM-ALBUTEROL 3 ML NEB INHALATION SCH ×4 (03:08→15:16)
[2016-09-08] MEDS: SODIUM CHLORIDE 0.9% 1,000 ML IV SCH ×2 (04:22→07:11)
[2016-09-08] MEDS ORDERED: IPRATROPIUM-ALBUTEROL 3 ML NEB INHALATION PRN (04:40)
[2016-09-08 07:30] LABS: Anisocytosis Slight; Basophils % (A) 1 %; CH 21.4; CHCM 28.2; Eosinophils # (A) 0.4 k/uL (0-0.7); Eosinophils % (A) 5 %; HGB 9.5 gm/dL (11.4-16.0); Hypochromasia Marked; Luc % (Auto) 3; Lymphocytes # (A) 2.4 k/uL (1.0-4.8); Lymphocytes % (A) 30 %; MCH 21.9 pg (25.0-35.0); MCHC 28.8 g/dL (31.0-37.0); MCV 76.1 fL (80.0-100.0); Mean Platelet Volume 6.5; Microcytosis Slight; Monocytes # (A) 0.5 k/uL (0-1.0); Monocytes % (A) 6 %; Neutrophils # (A) 4.7 k/uL (1.3-7.7); Neutrophils % (A) 57 %; RBC 4.34 m/uL (3.80-5.40); RDW 16.9 % (11.5-15.5); WBC 8.3 k/uL (3.8-10.6); WBC (Perox) 8.95
[2016-09-08 07:34] LABS: ALT 21 U/L (9-52); AST 16 U/L (14-36); Alkaline Phosphatase 64 U/L (38-126); Anion Gap 9 mmol/L; Blood Urea Nitrogen 9 mg/dL (7-17); Calcium 8.6 mg/dL (8.4-10.2); Carbon Dioxide 24 mmol/L (22-30); Chloride 107 mmol/L (98-107); Glucose 128 mg/dL (74-99); Non-African American GFR(MDRD) >60 (>60 ml/min/1.73 sqM); Potassium 4.4 mmol/L (3.5-5.1); Sodium 140 mmol/L (137-145); Total Bilirubin 0.4 mg/dL (0.2-1.3); Total Protein 5.9 g/dL (6.3-8.2)
[2016-09-08 07:52] LABS: Glucose,Whole Blood 131 mg/dL (75-99)
[2016-09-08 07:55] VITALS: RESP 16
[2016-09-08] MEDS: MELOXICAM 7.5 MG TAB PO SCH (08:34)
[2016-09-08] MEDS: GABAPENTIN 300 MG CAP PO SCH (08:34)
[2016-09-08] MEDS: INSULIN LISPRO (humaLOG) 300 UNIT/3 ML VIAL SQ SCH ×2 (08:39→13:41)
[2016-09-08] MEDS ORDERED: BISACODYL 10 MG SUPP RECTAL PRN (10:38)
[2016-09-08] MEDS ORDERED: METOCLOPRAMIDE 5 MG/ML 2 ML VIAL IVP STA (11:46)
[2016-09-08] MEDS: MAGNESIUM SULFATE-D5W PMX 1 GM in DEXTROSE/WATER 1 100ML.BAG IVPB SCH ×2 (12:07→13:39)
[2016-09-08 12:10] LABS: Glucose,Whole Blood 187 mg/dL (75-99)
--- NOTE | 2016-09-08 16:03 | P.PN ---
Subjective Principal diagnosis: Post cholecystectomy, interstitial pneumonia. Patient is a 41-year-old female with medical history significant for biliary hyperkinesia status post laparoscopic cholecystectomy on 09/06/2016. Patient was admitted with complaints of dyspnea and possible interstitial pneumonia. CT angiogram negative for pulmonary embolism. Today, patient reports improvement in breathing. Patient denies chills, nausea, or vomiting. Incisional pain controlled with current pain regimen. Patient is tolerating a low-fat diet. Patient denies flatus or bowel movements. Patient has been up ambulating. No fevers. No evidence of leukocytosis. Hemoglobin stable at 9.5. Objective - Vital Signs Vital signs: Vital Signs Temp 97.9 F 09/08/16 07:54 Pulse 74 09/08/16 15:27 Resp 16 09/08/16 07:54 BP 110/74 09/08/16 07:54 Pulse Ox 98 09/08/16 07:57 Intake & Output 09/07/16 09/08/16 09/08/16 18:59 06:59 18:59 Intake Total 6677 779 7501 Balance 3952 202 7971 Intake: IV 800 900 550 Sodium Chloride 0.9% 1, 800 900 550 000 ml @ 100 mls/hr IV . Q10H [facility] Rx#:[id number] Intake, IV Titration 200 Amount Magnesium Sulfate-D5w Pmx 200 1 gm In Dextrose/Water 1 100ml.bag @ 100 mls/hr IVPB Q1H [facility] Rx#: [id number] Oral 1120 490 Other: Voiding Method Toilet # Voids 2 3 - Exam GENERAL: Pt awake and alert, well-appearing, well-nourished, and in no acute distress. HEAD: Atraumatic, normocephalic. EYES: Pupils equal, round, and reactive to light, extraocular movements intact, sclera anicteric, conjunctiva are normal. ENT: Moist mucous membranes. NECK:Normal range of motion, supple without lymphadenopathy or JVD. LUNGS: Breath sounds diminished to auscultation bilaterally. No wheezes, rales , or rhonchi. HEART: Heart S1, S2, no S3 or S4. Regular rate and rhythm. No murmurs, rubs or gallops. ABDOMEN: Soft, obese, mild incisional tenderness, nondistended, hypoactive bowel sounds. No guarding, no rebound. Laparoscopic surgical incisions dry and intact, no erythema or drainage. EXTREMITIES: 2+ peripheral pulses. No edema. No calf tenderness. NEUROLOGICAL: Pt oriented x 3. Cranial nerves II through XII grossly intact. Strength and sensation grossly intact. PSYCH: Normal mood, normal affect. SKIN: Warm, dry, intact. - Labs CBC & Chem 7: 09/08/16 06:46 09/08/16 06:46 Labs: Abnormal Lab Results - Last 24 Hours (Table) 09/07/16 09/07/16 09/08/16 Range/Units 16:46 20:14 06:46 Hgb 9.5 L (11.4-16.0) gm/dL Hct 33.0 L (34.0-46.0) % MCV 76.1 L (80.0-100.0) fL MCH 21.9 L (25.0-35.0) pg MCHC 28.8 L (31.0-37.0) g/dL RDW 16.9 H (11.5-15.5) % Creatinine (0.52-1.04) mg/dL Glucose (74-99) mg/dL POC Glucose (mg/dL) 239 H 233 H (75-99) mg/dL Total Protein (6.3-8.2) g/dL Albumin (3.5-5.0) g/dL 09/08/16 09/08/16 09/08/16 Range/Units 06:46 07:16 11:58 Hgb (11.4-16.0) gm/dL Hct (34.0-46.0) % MCV (80.0-100.0) fL MCH (25.0-35.0) pg MCHC (31.0-37.0) g/dL RDW (11.5-15.5) % Creatinine 0.50 L (0.52-1.04) mg/dL Glucose 128 H (74-99) mg/dL POC Glucose (mg/dL) 131 H 187 H (75-99) mg/dL Total Protein 5.9 L (6.3-8.2) g/dL Albumin 3.1 L (3.5-5.0) g/dL Microbiology - Last 24 Hours (Table) 09/07/16 20:09 Gram Stain - Preliminary Sputum Sputum Culture - Preliminary Assessment and Plan Plan: Impression: 1. Biliary hyperkinesis status post laparoscopic cholecystectomy on 09/06/2016. 2. Shortness of breath with initial chest x-ray suggestive of for interstitial pneumonia; follow-up CT chest negative for pulmonary embolism with lung windows clear. Plan: 1. Continue to monitor patient. Continue supportive treatment and pain management. Encourage ambulation. Continue low-fat diet. Encourage incentive spirometry. Continue to follow with medical team. Patient will follow-up with Dr. Newell in the outpatient setting after discharge as already scheduled. The above impression and plan have been discussed and directed by Dr. Newell. Jose BOX acting as scribe for Dr. Newell.
[2016-09-08 17:05] LABS: Glucose,Whole Blood 143 mg/dL (75-99)
[2016-09-08 17:20] VITALS: BP 121/77; PULSE 90; TEMP 97.4
--- NOTE | 2016-09-08 19:39 | DS ---
DATE OF ADMISSION: 09/06/2016 DATE OF DISCHARGE: 09/08/2016 The patient is a 41 -year-old admitted to the hospital with laparoscopic cholecystectomy. Patient comes back with shortness of breath and pain radiating to the back and chest area, which is pain in the back, sharp pain with deep breathing and patient did get a CT angiography of the chest which did not show any pulmonary embolism although there is aortic aneurysm of around 3 cm which needs to be followed as an outpatient. Nicotine cessation counseling was provided. Patient will be discharged today. Her pain and shortness of breath is probably related to gas that was insufflated during laparoscopic procedure. Pain is better at this point of time. Patient will be discharged today if cleared by surgery. Patient will not need any antibiotics. For constipation will use polyethylene glycol that is Miralax. The patient was seen and examined on the day of discharge. Vital signs stable. GENERAL: The patient is alert and oriented x3, not in any acute distress. Well developed, well nourished. HEENT: Pupils are round and equally reacting to light. EOMI. No scleral icterus. No conjunctival pallor. Normocephalic, atraumatic. No pharyngeal erythema. No thyromegaly. CARDIOVASCULAR: S1 and S2 present. No murmurs, rubs, or gallops. PULMONARY: Chest is clear to auscultation, no wheezing or crackles. ABDOMEN: Soft, nontender, nondistended, normoactive bowel sounds. No palpable organomegaly. MUSCULOSKELETAL: No joint swelling or deformity. EXTREMITIES: No cyanosis, clubbing, or pedal edema. NEUROLOGICAL: Gross neurological examination did not reveal any focal deficits. SKIN: No rashes. FINAL DIAGNOSIS(ES): 1. Shortness of breath, pleuritic chest pain due to above-mentioned reasons. 2. History of asthma without any acute exacerbation. 3. Gastroesophageal reflux disease. 4. Type 2 diabetes mellitus rule out interstitial pneumonia. Please refer to my depart summary for further details of discharge medications. The patient will follow-up with Dr. Gutiérrez september at 10:15, follow up with Dr. Newell as scheduled.
== END 2016-09-08 17:27 | disposition home or self-care (01) | DRG 198 ==
LOC: EC 19:52 → 3SUR 21:49
PROVIDERS: ADMIT Internal Medicine; ATTEND Internal Medicine
DX: J84.9 Interstitial pulmonary disease, unspecified (principal); E11.42 Type 2 diabetes mellitus with diabetic polyneuropathy; R07.81 Pleurodynia; E83.42 Hypomagnesemia; M41.9 Scoliosis, unspecified; G89.18 Other acute postprocedural pain; K59.00 Constipation, unspecified; D72.829 Elevated white blood cell count, unspecified; I71.9 Aortic aneurysm of unspecified site, without rupture; I10 Essential (primary) hypertension; R11.0 Nausea; D64.9 Anemia, unspecified; J45.909 Unspecified asthma, uncomplicated; K21.9 Gastro-esophageal reflux disease without esophagitis; M19.90 Unspecified osteoarthritis, unspecified site; Z83.3 Family history of diabetes mellitus; Z87.891 Personal history of nicotine dependence; Z90.49 Acquired absence of other specified parts of digestive tract; Z79.84 Long term (current) use of oral hypoglycemic drugs; Z79.899 Other long term (current) drug therapy; Z79.1 Long term (current) use of non-steroidal anti-inflammatories (NSAID); Z79.891 Long term (current) use of opiate analgesic; Z82.3 Family history of stroke; Z98.51 Tubal ligation status; Z71.6 Tobacco abuse counseling; Z98.890 Other specified postprocedural states
CPT/HCPCS: 36415; 71020; 71275; 80048; 80053; 81025; 82550; 82553; 83036; 83735; 83880; 84484; 85025; 85610; 85730; 87040; 87070; 87205; 88304; 93005; 94640; 94760; 96361; 96365; 99285

== ENCOUNTER → 2016-11-03 | Outpatient (CLI) | payer OTHER ==
--- NOTE | 2016-11-04 14:22 | MM ---
Reason for exam: screening (asymptomatic). Last mammogram was performed 1 year and 6 months ago. History: Family history of breast cancer in maternal cousin at age 39 and breast cancer in maternal aunt at age 56. Physical Findings: A clinical breast exam by your physician is recommended on an annual basis and results should be correlated with mammographic findings. MG Screening Mammo w CAD Bilateral CC and MLO view(s) were taken. Prior study comparison: May 02, 2015, bilateral MG 3d diag mammo w/cad LUCILA. May 28, 2014, bilateral MG diagnostic mammo w CAD LUCILA. There are scattered fibroglandular densities. Finding: There are typically benign skin calcifications in the posterior position of both breasts. No significant changes in finding since May 02, 2015 and May 28, 2014. ASSESSMENT: Benign, BI-RAD 2 RECOMMENDATION: Routine screening mammogram of both breasts in 1 year.
== END | disposition home or self-care (01) ==
LOC: RADMAMWWP 08:49
PROVIDERS: ATTEND Internal Medicine
DX: Z12.31 Encounter for screening mammogram for malignant neoplasm of breast (principal)

== ENCOUNTER 2016-11-11 21:06 | Emergency (ER) | payer OTHER ==
--- NOTE | 2016-11-11 22:19 | ED ---
General Adult HPI - General Chief complaint: Extremity Problem,Nontraumatic Stated complaint: L knee pain Time Seen by Provider: 11/11/16 21:41 Source: patient, RN notes reviewed Mode of arrival: ambulatory Limitations: no limitations - History of Present Illness Initial comments: patient is a 41-year-old female who presents emergency room today with chief complaint of pain to the left knee times one week. She denies any specific injury or trauma. She does admit that it feels more swollen. She states she's having double time ambulating because of the pain. Patient denies any other complaints or symptoms. Patient denies any recent fever, chills, shortness of breath, chest pain, back pain, abdominal pain, nausea or vomiting, numbness or tingling, dysuria or hematuria, constipation or diarrhea, headaches or visual changes, or any other complaints. - Related Data Home Medications Medication Instructions Recorded Confirmed Gabapentin [Neurontin] 300 mg PO TID 01/13/15 11/11/16 Meloxicam [Mobic] 7.5 mg PO BID 01/13/15 11/11/16 Albuterol Inhaler [Ventolin Hfa 1 - 2 puff INHALATION RT-Q6H PRN 09/06/16 Inhaler] metFORMIN HCL [Glucophage] 500 mg PO DAILY 09/06/16 11/11/16 Ibuprofen [Motrin] 800 mg PO TID PRN 11/11/16 11/11/16 Previous Rx's Medication Instructions Recorded Acetaminophen Tab [Tylenol Tab] 650 mg PO Q6H PRN #30 tablet 09/08/16 Ibuprofen [Motrin] 800 mg PO Q6HR PRN #30 tab 11/11/16 Allergies Allergy/AdvReac Type Severity Reaction Status Date / Time No Known Allergies Allergy Verified 11/11/16 22:04 Review of Systems ROS Statement: Those systems with pertinent positive or pertinent negative responses have been documented in the HPI. ROS Other: All systems not noted in ROS Statement are negative. Past Medical History Past Medical History: Diabetes Mellitus, Hypertension, Musculoskeletal Disorder , Osteoarthritis (OA) Additional Past Medical History / Comment(s): ANEMIA, SCOLIOSIS, History of Any Multi-Drug Resistant Organisms: None Reported Past Surgical History: Appendectomy, Section, Cholecystectomy, Tonsillectomy, Tubal Ligation Additional Past Surgical History / Comment(s): bilateral carpal tunnel surgery Past Anesthesia/Blood Transfusion Reactions: No Reported Reaction Past Psychological History: No Psychological Hx Reported Smoking Status: Former smoker Past Alcohol Use History: Occasional Additional Past Alcohol Use History / Comment(s): QUIT 07/2014, smoked less than 1ppd Past Drug Use History: None Reported - Past Family History Father Family Medical History: CVA/TIA, Diabetes Mellitus Mother Family Medical History: No Reported History General Exam - General Exam Comments Initial Comments: General: The patient is awake and alert, in no distress, and does not appear acutely ill. Neck: The neck is supple, there is no tenderness or JVD. Cardiovascular: There is a regular rate and rhythm. No murmur, rub or gallop is appreciated. Respiratory: Lungs are clear to auscultation, respirations are non-labored, breath sounds are equal. No wheezes, stridor, rales, or rhonchi. Musculoskeletal: normal appearance of the left knee no obvious deformity. Shows good range of motion. Does have mild tenderness to the medial aspect. Sensations intact pulses equal bilaterally 2+. Strength 5/5. Neurological: A&O x 3. CN II-XII intact, There are no obvious motor or sensory deficits. Coordination appears grossly intact. Speech is normal. Skin: Skin is warm and dry and no rashes or lesions are noted. Psychiatric: Normal mood and affect. Limitations: no limitations Course Vital Signs 11/11/16 21:24 Temperature 98 F Pulse Rate 79 Respiratory 18 Rate Blood Pressure 125/65 O2 Sat by Pulse 98 Oximetry Medical Decision Making - Medical Decision Making x-rays reviewed and are unremarkable. Results were discussed with patient. Advised follow-up with further evaluation and possible MRI to orthopedics. Advised ice elevate and use ibuprofen for pain. Disposition Clinical Impression: Knee pain, acute Disposition: HOME SELF-CARE Condition: Good Instructions: Knee Pain (ED) Additional Instructions: Please use medication as discussed. Please follow-up with family doctor/ orthopedics in the next 2 days of symptoms have not improved. Please return to emergency room if the symptoms increase or worsen or for any other concerns. Prescriptions: Ibuprofen [Motrin] 800 mg PO Q6HR PRN #30 tab PRN Reason: Pain Referrals: Jimmie Gutiérrez MD [Primary Care Provider] - 1-2 days Wyatt Church DO [Doctor of Osteopathic Medicine] - 1-2 days Time of Disposition: 23:19
--- NOTE | 2016-11-11 22:47 | XR ---
EXAM: XR Left Knee, 3 views CLINICAL HISTORY: Reason: Pain TECHNIQUE: Three views of the left knee. COMPARISON: 04/21/15. FINDINGS: Bones/joints: Mild degenerative changes with osteophytic spurring. No acute fracture or dislocation. Query chronic change in the proximal fibula. Soft tissues: No radiopaque foreign body. Small knee joint effusion. IMPRESSION: Mild degenerative changes without evidence of acute fracture. Small joint effusion.
[2016-11-11] MEDS ORDERED: IBUPROFEN 800 MG TAB PO STA (23:24)
[2016-11-11 23:36] VITALS: BP 142/68; PULSE 82; RESP 16; TEMP 97.5
== END 2016-11-11 23:25 | disposition home or self-care (01) ==
LOC: EC 21:06
DX: M25.562 Pain in left knee (principal); M79.89 Other specified soft tissue disorders; E11.9 Type 2 diabetes mellitus without complications; M19.90 Unspecified osteoarthritis, unspecified site; Z87.891 Personal history of nicotine dependence; Z79.1 Long term (current) use of non-steroidal anti-inflammatories (NSAID); Z79.84 Long term (current) use of oral hypoglycemic drugs; Z79.899 Other long term (current) drug therapy
CPT/HCPCS: 99283

== ENCOUNTER 2017-07-14 10:42 | Emergency (ER) | payer OTHER ==
[2017-07-14] MEDS ORDERED: KETOROLAC 60 MG/2 ML VIAL IM STA (11:19)
[2017-07-14] MEDS ORDERED: predniSONE 20 MG TAB PO STA (11:25)
--- NOTE | 2017-07-14 11:25 | ED ---
Back Pain HPI - General Chief Complaint: Back Pain/Injury Stated Complaint: BACK PAIN, SHOOTING TO SHOULDERS AND NECK Time Seen by Provider: 07/14/17 11:11 Source: patient Limitations: no limitations - History of Present Illness Initial Comments: This 42-year-old white female presents with a complaint of some low back pain. This is primarily into her bilateral paralumbar region. It is been present for approximately 2 days although she does have a history of chronic low back pain. She does relate a history of back arthritis as well as scoliosis. She denies any paresthesias. There is no bowel or bladder abnormalities. She denies any fevers. She denies any injuries or overuse but does state that she is on her feet at work continuously 8-10 hours per day. She has tried some Motrin 800 with last use at 5 AM today. She also is on Neurontin for her chronic pain. She denies any possibility of . No other complaints or modifying factors. - Related Data Home Medications Medication Instructions Recorded Confirmed Gabapentin [Neurontin] 300 mg PO TID 01/13/15 06/03/17 Albuterol Inhaler [Ventolin Hfa 1 - 2 puff INHALATION RT-Q6H PRN 09/06/16 Inhaler] Omeprazole 20 mg PO BID PRN 06/03/17 06/03/17 Previous Rx's Medication Instructions Recorded Cephalexin [Keflex] 500 mg PO Q8HR #21 cap 06/03/17 HYDROcodone/APAP 7.5-325MG [[place] 1 tab PO Q4H PRN #20 tab 06/03/17 7.5-325] Sulfamethox-Tmp 800-160Mg [Bactrim 1 tab PO Q12HR #14 tab 06/03/17 DS 800-160 mg] glipiZIDE [Glucotrol] 2.5 mg PO AC-BID #60 tablet 06/03/17 Cyclobenzaprine [Flexeril] 10 mg PO TID PRN #20 tab 07/14/17 Ibuprofen [Motrin] 800 mg PO Q8H PRN #20 tab 07/14/17 predniSONE 20 mg PO BID #10 tab 07/14/17 Allergies Allergy/AdvReac Type Severity Reaction Status Date / Time No Known Allergies Allergy Verified 07/14/17 11:00 Review of Systems ROS Statement: Those systems with pertinent positive or pertinent negative responses have been documented in the HPI. ROS Other: All systems not noted in ROS Statement are negative. Past Medical History Past Medical History: Diabetes Mellitus, Hypertension, Musculoskeletal Disorder , Osteoarthritis (OA) Additional Past Medical History / Comment(s): ANEMIA, SCOLIOSIS, History of Any Multi-Drug Resistant Organisms: None Reported Past Surgical History: Appendectomy, Section, Cholecystectomy, Tonsillectomy, Tubal Ligation Additional Past Surgical History / Comment(s): bilateral carpal tunnel surgery Past Anesthesia/Blood Transfusion Reactions: No Reported Reaction Past Psychological History: No Psychological Hx Reported Smoking Status: Former smoker Past Alcohol Use History: Occasional Past Drug Use History: None Reported - Past Family History Father Family Medical History: CVA/TIA, Diabetes Mellitus Mother Family Medical History: No Reported History General Exam Limitations: no limitations General appearance: alert, in no apparent distress Extremities exam: Present: normal inspection, full ROM. Absent: tenderness Back exam: Present: normal inspection, tenderness (There is tenderness noted to the bilateral paralumbar musculature), muscle spasm. Absent: vertebral tenderness Neurological exam: Present: alert, oriented X3, reflexes normal. Absent: motor sensory deficit Psychiatric exam: Present: normal affect, normal mood Course Vital Signs 07/14/17 10:47 Temperature 98.7 F Pulse Rate 105 H Respiratory 20 Rate Blood Pressure 135/107 O2 Sat by Pulse 99 Oximetry Medical Decision Making - Medical Decision Making The patient was seen and examined. It is felt as though she does have an exacerbation of her chronic low back pain. This certainly could be due to a strain or due to her chronic conditions of arthritis and scoliosis. She receives a Toradol IM injection. She is counseled regarding her diagnosis in detail leaves no distress. Disposition Clinical Impression: Low back pain, Hypertension Disposition: HOME SELF-CARE Condition: Good Instructions: Acute Low Back Pain (ED), Chronic Back Pain (ED) Prescriptions: Cyclobenzaprine [Flexeril] 10 mg PO TID PRN #20 tab PRN Reason: Pain Ibuprofen [Motrin] 800 mg PO Q8H PRN #20 tab PRN Reason: Pain predniSONE 20 mg PO BID #10 tab Referrals: Jimmie Gutiérrez MD [Primary Care Provider] - 1-2 days Time of Disposition: 11:23
[2017-07-14 11:41] VITALS: BP 134/86; PULSE 104; RESP 17; TEMP 98.8
== END 2017-07-14 11:39 | disposition home or self-care (01) ==
LOC: EC 10:42
DX: M62.830 Muscle spasm of back (principal); I10 Essential (primary) hypertension; Z87.891 Personal history of nicotine dependence; Z79.899 Other long term (current) drug therapy; X50.9XXA Other and unspecified overexertion or strenuous movements or postures, initial encounter; Y92.69 Other specified industrial and construction area as the place of occurrence of the external cause; Y99.0 Civilian activity done for income or pay
CPT/HCPCS: 99283; 96372; J1885; J7512

== ENCOUNTER 2017-07-20 15:57 | Emergency (ER) | payer OTHER ==
[2017-07-20] MEDS ORDERED: METOCLOPRAMIDE 5 MG/ML 2 ML VIAL IVP STA (17:02)
[2017-07-20] MEDS ORDERED: IBUPROFEN 600 MG TAB PO STA (17:02)
[2017-07-20] MEDS ORDERED: SODIUM CHLORIDE 0.9% 1,000 ML IV STA ×2 (17:02→18:29)
--- NOTE | 2017-07-20 17:34 | ED ---
General Adult HPI - General Chief complaint: Abdominal Pain Stated complaint: Back Pain Time Seen by Provider: 07/20/17 16:46 Source: patient, RN notes reviewed Mode of arrival: ambulatory Limitations: no limitations - History of Present Illness Initial comments: 42-year-old female presents emergency department with chief complaint of nausea vomiting and diarrhea. Patient states she's had this all day today. Patient states that she cannot seem to keep anything down. She states that she has felt hot and cold with this but she does not know if that is related to the vomiting. She denies any history of this in the past. She denies any cough cold-like symptoms. She states her whole of the minimal cramping then stopped cramping.Patient denies any recent fever, chills, shortness of breath, chest pain, back pain, numbness or tingling, dysuria or hematuria, constipation or diarrhea, headaches or visual changes, or any other current symptoms. - Related Data Home Medications Medication Instructions Recorded Confirmed Gabapentin [Neurontin] 300 mg PO TID 01/13/15 07/20/17 Albuterol Inhaler [Ventolin Hfa 1 - 2 puff INHALATION RT-Q6H PRN 09/06/16 Inhaler] Omeprazole 20 mg PO BID PRN 06/03/17 07/20/17 Previous Rx's Medication Instructions Recorded glipiZIDE [Glucotrol] 2.5 mg PO AC-BID #60 tablet 06/03/17 Cyclobenzaprine [Flexeril] 10 mg PO TID PRN #20 tab 07/14/17 Ibuprofen [Motrin] 800 mg PO Q8H PRN #20 tab 07/14/17 predniSONE 20 mg PO BID #10 tab 07/14/17 Ciprofloxacin HCl [Cipro] 500 mg PO Q12HR #14 tablet 07/20/17 Ondansetron Odt [Zofran ODT] 4 mg PO Q8HR PRN #20 tab 07/20/17 Allergies Allergy/AdvReac Type Severity Reaction Status Date / Time No Known Allergies Allergy Verified 07/20/17 17:03 Review of Systems ROS Statement: Those systems with pertinent positive or pertinent negative responses have been documented in the HPI. ROS Other: All systems not noted in ROS Statement are negative. Past Medical History Past Medical History: Diabetes Mellitus, Hypertension, Musculoskeletal Disorder , Osteoarthritis (OA) Additional Past Medical History / Comment(s): ANEMIA, SCOLIOSIS, History of Any Multi-Drug Resistant Organisms: None Reported Past Surgical History: Appendectomy, Section, Cholecystectomy, Tonsillectomy, Tubal Ligation Additional Past Surgical History / Comment(s): bilateral carpal tunnel surgery Past Anesthesia/Blood Transfusion Reactions: No Reported Reaction Past Psychological History: No Psychological Hx Reported Smoking Status: Former smoker Past Alcohol Use History: Occasional Past Drug Use History: None Reported - Past Family History Father Family Medical History: CVA/TIA, Diabetes Mellitus Mother Family Medical History: No Reported History General Exam - General Exam Comments Initial Comments: General: The patient is awake and alert, in no distress, and does not appear acutely ill. Eye: Pupils are equal, round and reactive to light, extra-ocular movements are intact; there is normal conjunctiva bilaterally. No signs of icterus. Ears, nose, mouth and throat: There are moist mucous membranes and no oral lesions. Neck: The neck is supple, there is no tenderness. Cardiovascular: There is a regular rate and rhythm. No murmur, rub or gallop is appreciated. Respiratory: Lungs are clear to auscultation, respirations are non-labored, breath sounds are equal. No wheezes, stridor, rales, or rhonchi. Gastrointestinal: Soft, non-distended, non-tender abdomen without masses or organomegaly noted. There is no rebound or guarding present. No CVA tenderness. Bowel sounds are unremarkable. Back: There is no tenderness to palpation in the midline. There is no obvious deformity. No rashes noted. Musculoskeletal: Normal ROM, no tenderness, There is no pedal edema. There is no calf tenderness or swelling. Sensation intact. Pulses equal bilaterally 2+. Neurological: CN II-XII intact, There are no obvious motor or sensory deficits. Coordination appears grossly intact. Speech is normal. Skin: Skin is warm and dry and no rashes or lesions are noted. Psychiatric: Cooperative, appropriate mood & affect, normal judgment. Limitations: no limitations Course Vital Signs 07/20/17 07/20/17 16:16 19:06 Temperature 98.7 F 98.4 F Pulse Rate 118 H 87 Respiratory 18 16 Rate Blood Pressure 118/70 115/60 O2 Sat by Pulse 97 98 Oximetry EKG Findings - EKG Comments: EKG Findings:: normal sinus rhythm 89 bpm, normal axis, no atopy, no S-T depressions or elevations, Medical Decision Making - Medical Decision Making 42-year-old female presents to the emergency Department chief complaint of nausea vomiting and diarrhea. This time patient's lab work has been reviewed. As well as imaging. This time patient does appear to be hypokalemic. We will replace this. Patient also appears to be UTI. We will start her on Cipro for home. We discussed ports of hydration. We discussed return parameters and follow-up and all questions. Patient stated that she understood and she is in agreement with this plan. All questions have been answered. Patient will be discharged home at this time. - Lab Data Result diagrams: 07/20/17 17:35 07/20/17 17:35 Lab Results 07/20/17 07/20/17 07/20/17 Range/Units 17:35 17:35 17:35 WBC 6.6 (3.8-10.6) k/uL RBC 5.25 (3.80-5.40) m/uL Hgb 10.5 L (11.4-16.0) gm/dL Hct 34.8 (34.0-46.0) % MCV 66.2 L (80.0-100.0) fL MCH 20.1 L (25.0-35.0) pg MCHC 30.3 L (31.0-37.0) g/dL RDW 17.6 H (11.5-15.5) % Plt Count 213 (150-450) k/uL Neutrophils % 77 % Lymphocytes % 18 % Monocytes % 4 % Eosinophils % 0 % Basophils % 0 % Neutrophils # 5.1 (1.3-7.7) k/uL Lymphocytes # 1.2 (1.0-4.8) k/uL Monocytes # 0.3 (0-1.0) k/uL Eosinophils # 0.0 (0-0.7) k/uL Basophils # 0.0 (0-0.2) k/uL Hypochromasia Marked Anisocytosis Slight Microcytosis Marked Sodium 138 (137-145) mmol/L Potassium 3.0 L* (3.5-5.1) mmol/L Chloride 102 (98-107) mmol/L Carbon Dioxide 27 (22-30) mmol/L Anion Gap 9 mmol/L BUN 6 L (7-17) mg/dL Creatinine 0.46 L (0.52-1.04) mg/dL Est GFR (MDRD) Af Amer >60 (>60 ml/min/1.73 sqM) Est GFR (MDRD) Non-Af >60 (>60 ml/min/1.73 sqM) Glucose 178 H (74-99) mg/dL Calcium 8.5 (8.4-10.2) mg/dL Total Bilirubin 0.6 (0.2-1.3) mg/dL AST 25 (14-36) U/L ALT 33 (9-52) U/L Alkaline Phosphatase 83 (38-126) U/L Total Protein 6.6 (6.3-8.2) g/dL Albumin 3.3 L (3.5-5.0) g/dL Amylase 37 (30-110) U/L Lipase 37 (23-300) U/L Urine Color Yellow Urine Appearance Cloudy H (Clear) Urine pH 6.0 (5.0-8.0) Ur Specific [place] 1.009 (1.001-1.035) Urine Protein Trace H (Negative) Urine Glucose (UA) 3+ H (Negative) Urine Ketones Negative (Negative) Urine Blood Trace H (Negative) Urine Nitrite Negative (Negative) Urine Bilirubin Negative (Negative) Urine Urobilinogen <2.0 (<2.0) mg/dL Ur Leukocyte Esterase Large H (Negative) Urine RBC 3 (0-5) /hpf Urine WBC 98 H (0-5) /hpf Ur Squamous Epith Cells 18 H (0-4) /hpf Amorphous Sediment Rare H (None) /hpf Urine Bacteria Moderate H (None) /hpf Hyaline Casts 1 (0-2) /lpf Urine Mucus Occasional H (None) /hpf Influenza Type A RNA (Not Detectd) Influenza Type B (PCR) (Not Detectd) 07/20/17 Range/Units 17:35 WBC (3.8-10.6) k/uL RBC (3.80-5.40) m/uL Hgb (11.4-16.0) gm/dL Hct (34.0-46.0) % MCV (80.0-100.0) fL MCH (25.0-35.0) pg MCHC (31.0-37.0) g/dL RDW (11.5-15.5) % Plt Count (150-450) k/uL Neutrophils % % Lymphocytes % % Monocytes % % Eosinophils % % Basophils % % Neutrophils # (1.3-7.7) k/uL Lymphocytes # (1.0-4.8) k/uL Monocytes # (0-1.0) k/uL Eosinophils # (0-0.7) k/uL Basophils # (0-0.2) k/uL Hypochromasia Anisocytosis Microcytosis Sodium (137-145) mmol/L Potassium (3.5-5.1) mmol/L Chloride (98-107) mmol/L Carbon Dioxide (22-30) mmol/L Anion Gap mmol/L BUN (7-17) mg/dL Creatinine (0.52-1.04) mg/dL Est GFR (MDRD) Af Amer (>60 ml/min/1.73 sqM) Est GFR (MDRD) Non-Af (>60 ml/min/1.73 sqM) Glucose (74-99) mg/dL Calcium (8.4-10.2) mg/dL Total Bilirubin (0.2-1.3) mg/dL AST (14-36) U/L ALT (9-52) U/L Alkaline Phosphatase (38-126) U/L Total Protein (6.3-8.2) g/dL Albumin (3.5-5.0) g/dL Amylase (30-110) U/L Lipase (23-300) U/L Urine Color Urine Appearance (Clear) Urine pH (5.0-8.0) Ur Specific [place] (1.001-1.035) Urine Protein (Negative) Urine Glucose (UA) (Negative) Urine Ketones (Negative) Urine Blood (Negative) Urine Nitrite (Negative) Urine Bilirubin (Negative) Urine Urobilinogen (<2.0) mg/dL Ur Leukocyte Esterase (Negative) Urine RBC (0-5) /hpf Urine WBC (0-5) /hpf Ur Squamous Epith Cells (0-4) /hpf Amorphous Sediment (None) /hpf Urine Bacteria (None) /hpf Hyaline Casts (0-2) /lpf Urine Mucus (None) /hpf Influenza Type A RNA Not Detected (Not Detectd) Influenza Type B (PCR) Not Detected (Not Detectd) - Radiology Data Radiology results: report reviewed, image reviewed Disposition Clinical Impression: Nausea & vomiting, Hypokalemia, UTI (urinary tract infection) Disposition: HOME SELF-CARE Condition: Stable Instructions: Urinary Tract Infection in Women (ED), Hypokalemia (ED), Acute Nausea and Vomiting (ED) Additional Instructions: Please use medication as discussed. Please follow up with family doctor if symptoms have not improved over the next two days. Please return to the emergency room if your symptoms increase or worsen or for any other concerns. Please follow up with her doctor for repeat potassium check in one to 2 days. Prescriptions: Ciprofloxacin HCl [Cipro] 500 mg PO Q12HR #14 tablet Ondansetron Odt [Zofran ODT] 4 mg PO Q8HR PRN #20 tab PRN Reason: Nausea Referrals: Jimmie Gutiérrez MD [Primary Care Provider] - 1-2 days Time of Disposition: 19:07
[2017-07-20 17:56] LABS: Anisocytosis Slight; Basophils % (A) 0 %; Eosinophils % (A) 0 %; HCT 34.8 % (34.0-46.0); HGB 10.5 gm/dL (11.4-16.0); Hypochromasia Marked; Lymphocytes # (A) 1.2 k/uL (1.0-4.8); Lymphocytes % (A) 18 %; MCH 20.1 pg (25.0-35.0); MCHC 30.3 g/dL (31.0-37.0); MCV 66.2 fL (80.0-100.0); Mean Platelet Volume 8.4; Microcytosis Marked; Monocytes # (A) 0.3 k/uL (0-1.0); Monocytes % (A) 4 %; Neutrophils # (A) 5.1 k/uL (1.3-7.7); Neutrophils % (A) 77 %; Platelet Count 213 k/uL (150-450); RBC 5.25 m/uL (3.80-5.40); RDW 17.6 % (11.5-15.5); WBC 6.6 k/uL (3.8-10.6)
[2017-07-20 18:05] LABS: ALT 33 U/L (9-52); AST 25 U/L (14-36); Albumin 3.3 g/dL (3.5-5.0); Alkaline Phosphatase 83 U/L (38-126); Amylase 37 U/L (30-110); Anion Gap 9 mmol/L; Blood Urea Nitrogen 6 mg/dL (7-17); Calcium 8.5 mg/dL (8.4-10.2); Carbon Dioxide 27 mmol/L (22-30); Chloride 102 mmol/L (98-107); Glucose 178 mg/dL (74-99); Lipase 37 U/L (23-300); Sodium 138 mmol/L (137-145); Total Bilirubin 0.6 mg/dL (0.2-1.3); Total Protein 6.6 g/dL (6.3-8.2)
[2017-07-20 18:07] LABS: Amorphous Sediment,Urine Rare /hpf; Appearance,Urine Cloudy (Clear); Bacteria,Urine Moderate /hpf; Bilirubin,Urine Negative (Negative); Blood,Urine Trace (Negative); Color,Urine Yellow; Glucose,Urine (UA) 3+ (Negative); Hyaline Casts,Urine 1 /lpf (0-2); Ketones,Urine Negative (Negative); Leukocyte Esterase,Urine Large (Negative); Mucus,Urine Occasional /hpf; Nitrite,Urine Negative (Negative); Protein,Urine Trace (Negative); RBC,Urine 3 /hpf (0-5); Specific Gravity,Urine 1.009 (1.001-1.035); Squamous Epithelial Cell,Urine 18 /hpf (0-4); Urobilinogen,Urine <2.0 mg/dL (<2.0); WBC,Urine 98 /hpf (0-5)
[2017-07-20] MEDS ORDERED: cefTRIAXone IN SWFI 1,000 MG/10 ML SYRINGE IVP STA (18:14)
--- NOTE | 2017-07-20 18:48 | XR ---
EXAMINATION TYPE: XR abdomen 2V DATE OF EXAM: 07/20/2017 COMPARISON: 04/24/2017 HISTORY: Abdominal pain TECHNIQUE: 3 views FINDINGS: There is no sign of intestinal obstruction or pneumoperitoneum. Fecal pattern is normal. Th ere is no sign of a mass. There are no pathologic calcifications over the kidneys. There is slight nay mbar levoscoliosis. Lung bases are clear. IMPRESSION: Nonacute abdomen. No change.
[2017-07-20] MEDS: POTASSIUM CHLORIDE 10 MEQ in SODIUM CHLORIDE 0.9% 100 ML IVPB SCH ×2 (18:58→20:12)
[2017-07-20 21:13] VITALS: BP 104/63; PULSE 77; RESP 18; TEMP 97.7
== END 2017-07-20 21:36 | disposition home or self-care (01) ==
LOC: EC 15:57
DX: N39.0 Urinary tract infection, site not specified (principal); R11.2 Nausea with vomiting, unspecified; E87.6 Hypokalemia; Z87.891 Personal history of nicotine dependence; Z90.49 Acquired absence of other specified parts of digestive tract; Z98.51 Tubal ligation status; Z79.899 Other long term (current) drug therapy
CPT/HCPCS: 36415; 93005; 80053; 82150; 83690; 85025; 81001; 87086; 87502; 74019; 99284; 96365; 96366; 96375 ×2; 96361; J2765; J3480; J0696; 87077; 87186

== ENCOUNTER → 2017-07-27 | Outpatient (CLI) | payer OTHER ==
--- NOTE | 2017-07-27 17:16 | XR ---
EXAMINATION TYPE: XR thoracic spine 2V DATE OF EXAM: 07/27/2017 COMPARISON: 06/19/2014 HISTORY: Pain TECHNIQUE: Three-view thoracic spine FINDINGS: There are 12 thoracic type vertebral bodies. The pedicles are intact. Disc heights appear p reserved. Vertebral body heights are preserved. Alignment is normal. Spondylosis is present. IMPRESSION: 1. Stable spondylosis thoracic spine.
--- NOTE | 2017-07-27 17:17 | XR ---
EXAMINATION TYPE: XR lumbosacral spine min 4V DATE OF EXAM: 07/27/2017 COMPARISON: NONE HISTORY: Back pain TECHNIQUE: Five-view lumbar spine FINDINGS: There 5 lumbar-type vertebral bodies. The pedicles are intact. There is a scoliosis present with convexity to the left centered at L3. Disc heights appear preserved. Vertebral body heights are preserved. No spondylolysis is evident. IMPRESSION: 1. Scoliosis
--- NOTE | 2017-07-27 17:18 | XR ---
EXAMINATION TYPE: XR cervical spine comp DATE OF EXAM: 07/27/2017 COMPARISON: NONE HISTORY: Neck pain TECHNIQUE: Five-view cervical spine FINDINGS: There is straightening of the cervical spine lateral projection. The prevertebral space is normal. Disc height and vertebral body heights are preserved. Posterior spinal lamellar line is intac t. Odontoid is limited due to overlying occiput. Foramen are patent. IMPRESSION: 1. Straightening of the cervical spine. No acute osseous abnormality is evident.
== END | disposition home or self-care (01) ==
LOC: RADXRMAIN 10:10
PROVIDERS: ATTEND Internal Medicine
DX: M47.814 Spondylosis without myelopathy or radiculopathy, thoracic region (principal); M41.86 Other forms of scoliosis, lumbar region
CPT/HCPCS: 72050; 72070; 72110

== ENCOUNTER → 2017-08-16 | Outpatient (CLI) | payer OTHER ==
--- NOTE | 2017-08-16 22:38 | MR ---
EXAMINATION TYPE: MR lumbar spine wo con DATE OF EXAM: 08/16/2017 COMPARISON: NONE HISTORY: 42-year-old female Low back pain TECHNIQUE: Multiplanar, multisequence images of the lumbar spine were acquired. Findings: Vertebral body heights are preserved. There is facet arthropathy of the mid to lower lumbar spine with grade 1 anterolisthesis at L4-L5. Very mild to moderate intervertebral disc desiccation especially at L4-L5 and L5-S1 with bulging disc s. History matrix hemangioma within T11 vertebral body. In addition, there is some mild Modic type I end plate change at L5-S1. No suspicious bone marrow placement. Conus medullaris is normal. No prevertebral or paravertebral soft tissue abnormality seen. At T11-T12, there is very mild disc bulge without canal or foraminal stenosis. At T12-L1, minimal disc bulge without canal or foraminal stenosis. At L1-L2, minimal bulging disc without significant canal or foraminal stenosis. At L2-L3, no canal or foraminal stenosis. At L3-L4, minimal bulging disc with mild facet arthropathy. No significant canal or foraminal stenosi s. At L4-L5, there is hypertrophic facet arthropathy with grade 1 anterolisthesis and bulging disc. Linares ges result in minimal bilateral inferior neural foraminal narrowing. There may also be abutment of th e traversing left L5 nerve root. No significant spinal canal stenosis. At L5-S1, diffuse bulging disc and facet degenerative change. Disc material closely approaches but do es not seem to contact the traversing right S1 nerve root. There is mild left-sided neural foraminal stenosis. No spinal canal stenosis. IMPRESSION: 1. Mild to moderate degenerative disc disease especially at L4-L5 and L5-S1 where there is disc desic cation and disc bulging. Associated edematous Modic type I endplate change at L5-S1. 2. Additional hypertrophic facet arthropathy lower lumbar spine with grade 1 anterolisthesis at L4-L5 . 3. Bulging disc at L4-L5 causes minimal inferior neural foraminal narrowing. There may also be abutme nt of the traversing left L5 nerve root at this level. 4. Mild left-sided neuroforaminal stenosis at L5-S1.
== END | disposition home or self-care (01) ==
LOC: RADMRIMAIN 06:34
PROVIDERS: ATTEND Internal Medicine
DX: M99.73 Connective tissue and disc stenosis of intervertebral foramina of lumbar region (principal); M43.16 Spondylolisthesis, lumbar region; M51.27 Other intervertebral disc displacement, lumbosacral region; M51.37 Other intervertebral disc degeneration, lumbosacral region; M46.86 Other specified inflammatory spondylopathies, lumbar region
CPT/HCPCS: 72148

== ENCOUNTER → 2017-10-17 | Outpatient (CLI) | payer OTHER ==
--- NOTE | 2017-10-17 09:08 | CT ---
EXAMINATION TYPE: CT abdomen pelvis wo con DATE OF EXAM: 10/17/2017 HISTORY: RUQ pain traveling down to umbilical area per patient. Right flank pain per order CT DLP: 1054.7 mGycm. Automated Exposure Control for Dose Reduction was Utilized. TECHNIQUE: CT scan of the abdomen and pelvis is performed without oral or IV contrast. COMPARISON: NONE FINDINGS: Within the limitations of a non-contrast study, the following observations are made. LUNG BASES: No significant abnormality is appreciated. LIVER/GB: Liver is isodense relative to spleen consistent with mild diffuse fatty infiltration. Gallb ladder is not visualized and presumed surgically absent. PANCREAS: No significant abnormality is seen. SPLEEN: In the inferior splenic hilum there is 2.7 cm round lesion isodense to spleen likely reflecti ng large splenule. This can be confirmed with nuclear medicine imaging if desired. ADRENALS: No significant abnormality is seen. KIDNEYS: No definitive renal stones or hydronephrosis is seen bilaterally. No intraluminal calculus i s seen in poorly distended bladder. BOWEL: Apparent be surgical sutures or phleboliths in the right lower quadrant, portion of normal-holden earing appendix is seen near this level axial image 79. No suspicious small or large bowel dilatation is identified. GENITAL ORGANS: Uterus is slightly retroverted and slightly bulky, underlying fibroids may be present . Some scattered pelvic phleboliths are present. LYMPH NODES: No greater than 1cm abdominal or pelvic lymph nodes are appreciated. OSSEOUS STRUCTURES: There is slight levoconvex scoliosis centered in the mid lumbar spine. There is m oderate multilevel spurring in the thoracic spine. OTHER: No significant additional abnormality is seen. IMPRESSION: 1. No significant acute finding is seen to account for patient's symptoms. No renal stones or hydrone phrosis is present bilaterally. Other findings as noted above.
== END | disposition home or self-care (01) ==
LOC: RADCTMAIN 08:02
PROVIDERS: ATTEND Internal Medicine
DX: R10.9 Unspecified abdominal pain (principal); Z88.8 Allergy status to other drugs, medicaments and biological substances
CPT/HCPCS: 74176

== ENCOUNTER → 2018-10-03 | Outpatient (CLI) | payer OTHER ==
--- NOTE | 2018-10-03 13:16 | XR ---
EXAMINATION TYPE: XR hand complete LT DATE OF EXAM: 10/03/2018 COMPARISON: NONE HISTORY: Pain TECHNIQUE: Three views are submitted. FINDINGS: The osseous structures are intact. The joint spaces are preserved and there is no acute fracture or dislocation. Density adjacent the DIP joint of the second digit appears chronic correlate point samantha lopez. IMPRESSION: 1. No definite acute fracture or dislocation if symptoms persist, follow-up study in 7 to 10 days wo uld be suggested. See above.
--- NOTE | 2018-10-03 13:17 | XR ---
EXAMINATION TYPE: XR wrist complete LT DATE OF EXAM: 10/03/2018 COMPARISON: NONE HISTORY: Pain TECHNIQUE: Four views submitted. FINDINGS: The osseous structures are intact. The joint spaces are preserved and there is no acute fracture or dislocation. IMPRESSION: 1. No definite acute fracture or dislocation if symptoms persist, follow-up study in 7 to 10 days wo uld be suggested
[2018-10-03 14:25] LABS: ALT 47 U/L (9-52); AST 48 U/L (14-36); Albumin 3.7 g/dL (3.5-5.0); Alkaline Phosphatase 102 U/L (38-126); Anion Gap 9 mmol/L; Blood Urea Nitrogen 13 mg/dL (7-17); Carbon Dioxide 26 mmol/L (22-30); Chloride 102 mmol/L (98-107); Glucose 245 mg/dL (74-99); Potassium 4.3 mmol/L (3.5-5.1); Sodium 137 mmol/L (137-145); Total Bilirubin 0.6 mg/dL (0.2-1.3)
[2018-10-03 14:33] LABS: Anisocytosis Slight; HCT 36.8 % (34.0-46.0); HGB 10.5 gm/dL (11.4-16.0); Hypochromasia Marked; MCH 18.8 pg (25.0-35.0); MCHC 28.4 g/dL (31.0-37.0); MCV 66.3 fL (80.0-100.0); Mean Platelet Volume 7.8; Microcytosis Marked; Platelet Count 235 k/uL (150-450); RBC 5.55 m/uL (3.80-5.40); RDW 17.7 % (11.5-15.5); WBC 9.5 k/uL (3.8-10.6)
[2018-10-03 14:41] LABS: T4, Free (Free Thyroxine) 1.33 ng/dL (0.78-2.19)
[2018-10-03 20:46] LABS: Hemoglobin A1C 10.2 % (4.0-6.0)
[2018-10-04 19:02] LABS: Folate, Serum 10.9 ng/mL; Iron Saturation 6.23 (12.00-45.00)
== END | disposition home or self-care (01) ==
LOC: RADXRMAIN 12:49
PROVIDERS: ATTEND Internal Medicine
DX: M79.642 Pain in left hand (principal); M25.532 Pain in left wrist; D64.9 Anemia, unspecified; E11.9 Type 2 diabetes mellitus without complications
CPT/HCPCS: 36415; 80053; 82607; 82728; 82746; 83036; 83540; 83550; 84439; 84443; 85027

== ENCOUNTER 2019-04-17 12:54 | Emergency (ER) | payer OTHER ==
[2019-04-17 13:10] VITALS: TEMP 97.7
[2019-04-17] MEDS ORDERED: DIAZEPAM 5 MG/ML 2 ML INJ IVP STA (14:09)
[2019-04-17] MEDS ORDERED: MORPHINE SULFATE 4 MG/ML SYRINGE IVP STA (14:09)
[2019-04-17] MEDS ORDERED: METOCLOPRAMIDE 5 MG/ML 2 ML VIAL IVP STA (14:09)
--- NOTE | 2019-04-17 14:31 | CT ---
EXAMINATION TYPE: CT brain wo con DATE OF EXAM: 04/17/2019 COMPARISON: Prior CT chest 08/17/2012 HISTORY: headache CT DLP: 1063.4 mGycm. Automated Exposure Control for Dose Reduction was Utilized. TECHNIQUE: CT scan of the head is performed without contrast. FINDINGS: There is no acute intracranial hemorrhage, mass effect, or midline shift identified. The ventricles and sulci are within normal limits in size. The globes are intact and the visualized sin uses are remarkable for mild inflammatory change in the maxillary sinuses, ethmoid air cells. IMPRESSION: No acute intracranial hemorrhage, mass effect, or midline shift is seen.
[2019-04-17] MEDS ORDERED: KETOROLAC 30 MG/ML 1 ML VIAL IVP STA (14:35)
[2019-04-17] MEDS ORDERED: SODIUM CHLORIDE 0.9% 1,000 ML IV ONE (14:35)
--- NOTE | 2019-04-17 14:35 | ED ---
General Adult HPI - General Chief complaint: Neck Pain/Injury Stated complaint: neck & head pain Time Seen by Provider: 04/17/19 13:58 Source: patient Mode of arrival: ambulatory Limitations: no limitations - History of Present Illness Initial comments: 43-year-old female history of scoliosis, arthritis the back, chronic back pain, chronic neck pain with history of tension migraine presenting to the ER for cc of headache, with neck tension. Patient states that at the base of her skull she has tension that she feels has caused a headache. This has been ongoing since Tuesday. Patient states that she usually takes Fioricet and another medication prescribe her primary care provider for her headaches however she has run out. Patient states this appears more persistent than her typical headache. Patient denies sudden onset. Patient denies thunderclap headache, or this being the worst headache of her life. Patient denies visual changes, fevers, numbness, parathesias or weakness of the UE/LE. Patient denies vomiting, URI symptoms or neck stiffness. Patient states she could no longer take the pain today and ibuprofen 800mg was not working so she presented to the ER for evaluation. Upon arrival patient appears uncomfortable. No other complaints. - Related Data Home Medications Medication Instructions Recorded Confirmed Gabapentin [Neurontin] 300 mg PO TID 01/13/15 07/20/17 Albuterol Inhaler [Ventolin Hfa 1 - 2 puff INHALATION RT-Q6H PRN 09/06/16 07/20/17 Inhaler] Omeprazole 20 mg PO BID PRN 06/03/17 07/20/17 Previous Rx's Medication Instructions Recorded glipiZIDE [Glucotrol] 2.5 mg PO AC-BID #60 tablet 06/03/17 Cyclobenzaprine [Flexeril] 10 mg PO TID PRN #20 tab 07/14/17 Ibuprofen [Motrin] 800 mg PO Q8H PRN #20 tab 07/14/17 predniSONE 20 mg PO BID #10 tab 07/14/17 Ciprofloxacin HCl [Cipro] 500 mg PO Q12HR #14 tablet 07/20/17 Ondansetron Odt [Zofran ODT] 4 mg PO Q8HR PRN #20 tab 07/20/17 Allergies Allergy/AdvReac Type Severity Reaction Status Date / Time No Known Allergies Allergy Verified 04/17/19 13:10 Review of Systems ROS Statement: Those systems with pertinent positive or pertinent negative responses have been documented in the HPI. ROS Other: All systems not noted in ROS Statement are negative. Past Medical History Past Medical History: Diabetes Mellitus, Hypertension, Musculoskeletal Disorder, Osteoarthritis (OA) Additional Past Medical History / Comment(s): ANEMIA, SCOLIOSIS, History of Any Multi-Drug Resistant Organisms: None Reported Past Surgical History: Appendectomy, Section, Cholecystectomy, Tonsillectomy, Tubal Ligation Additional Past Surgical History / Comment(s): bilateral carpal tunnel surgery Past Anesthesia/Blood Transfusion Reactions: No Reported Reaction Past Psychological History: No Psychological Hx Reported Smoking Status: Former smoker Past Alcohol Use History: Occasional Past Drug Use History: None Reported - Past Family History Father Family Medical History: CVA/TIA, Diabetes Mellitus Mother Family Medical History: No Reported History General Exam - General Exam Comments Initial Comments: General: The patient is awake and alert, does not appear toxic. Eye: +3 mm pupils are equal, round and reactive to light, extra-ocular movements are intact. No nystagmus. There is normal conjunctiva bilaterally. No signs of icterus. Ears, nose, mouth and throat: There are moist mucous membranes and no oral lesions. No nuchal rigidity Neck: The neck is supple, there is no tenderness or JVD. Cardiovascular: There is a regular rate and rhythm. No murmur, rub or gallop is appreciated. Respiratory: Lungs are clear to auscultation, respirations are non-labored, breath sounds are equal. No wheezes, stridor, rales, or rhonchi. Musculoskeletal: Normal ROM, no tenderness. Strength 5/5 of the UE and LE equal b/l.. Sensation intact. Radial pulses equal bilaterally 2+. Neurological: A&O x 3. CN II-XII intact, There are no obvious motor or sensory deficits. Coordination intact of the UE and LE b/l equal. Speech is normal. No pronator drift. No drift of the LE b/l. Gait WNL. No ataxia. Skin: Skin is warm and dry and no rashes or lesions are noted. Psychiatric: Cooperative, appropriate mood & affect, normal judgment. Limitations: no limitations Course Vital Signs 04/17/19 13:07 Temperature 97.7 F Pulse Rate 77 Respiratory 18 Rate Blood Pressure 140/77 O2 Sat by Pulse 99 Oximetry - Reevaluation(s) Reevaluation #1: CT brain negative, Toradol was ordered and administered. Reevaluation of patient--she states she is feeling much better. Will reevaluate. 04/17/19 15:04 Medical Decision Making - Medical Decision Making 33-year-old female presenting for headache with neck tension. History of tension migraines. Patient states this is been more persistent than her usual. CT of the brain negative. No focal neurological deficits. No nuchal irritation signs. Reevaluation after administration of a muscle relaxant, antiemetic, NSAID patient states that her symptoms have improved greatly. Patient states she is comfortable discharge at this time. I discussed the importance of primary care follow-up and return parameters. Patient discharged appearing well without home with daughter. Discussed case in detail attending provider Dr. Hernandez Disposition Clinical Impression: Headache, Tension Disposition: HOME SELF-CARE Condition: Good Instructions (If sedation given, give patient instructions): Tension Headache (ED) Additional Instructions: Please use medication as discussed. Please follow-up with family doctor in the next 2 days, for refill of medications for chronic tension migraines. Please return to emergency room if the symptoms increase or worsen or for any other concerns, visual changes, fever, return/worsening headache. Is patient prescribed a controlled substance at d/c from ED?: No Referrals: Jimmie Gutiérrez MD [Primary Care Provider] - 1-2 days Time of Disposition: 15:35
[2019-04-17] MEDS ORDERED: SODIUM CHLORIDE 0.9% 1,000 ML IV SCH (14:45)
[2019-04-17 15:49] VITALS: BP 134/70; PULSE 80; RESP 16
== END 2019-04-17 15:43 | disposition home or self-care (01) ==
LOC: EC 12:54
DX: G44.209 Tension-type headache, unspecified, not intractable (principal); Z79.899 Other long term (current) drug therapy; Z87.891 Personal history of nicotine dependence
CPT/HCPCS: 70450; 99283; 96374; 96375 ×3; 96361; J2270; J2765; J3360; J1885

== ENCOUNTER → 2020-01-10 | Outpatient (CLI) | payer OTHER ==
[2020-01-10 13:02] LABS: Anisocytosis Slight; Basophils # (A) 0.1 k/uL (0-0.2); Basophils % (A) 1 %; Eosinophils # (A) 0.4 k/uL (0-0.7); Eosinophils % (A) 4 %; HCT 37.2 % (34.0-46.0); HGB 10.6 gm/dL (11.4-16.0); Hypochromasia Marked; Lymphocytes % (A) 21 %; MCHC 28.6 g/dL (31.0-37.0); MCV 66.4 fL (80.0-100.0); Mean Platelet Volume 7.5; Microcytosis Marked; Monocytes # (A) 0.7 k/uL (0-1.0); Monocytes % (A) 7 %; Neutrophils # (A) 6.2 k/uL (1.3-7.7); Neutrophils % (A) 65 %; Platelet Count 243 k/uL (150-450); RDW 18.3 % (11.5-15.5); WBC 9.5 k/uL (3.8-10.6)
[2020-01-10 19:39] LABS: African American GFR (CKD) 126.7 (60.0-200.0); Albumin 3.9 g/dL (3.80-4.90); Albumin/Globulin Ratio 1.39 (1.60-3.17); Anion Gap 8.2 mmol/L (4.00-12.00); BUN/Creat Ratio 18.33 Ratio (12.00-20.00); Calcium 8.9 mg/dL (8.7-10.3); Carbon Dioxide 24.8 mmol/L (21.6-31.8); Globulin 2.8 g/dL (1.6-3.3); Non-African American GFR(CKD) 109.3 (60.0-200.0); Potassium 4.2 mmol/L (3.5-5.5); Total Bilirubin 0.7 mg/dL (0.2-1.2); Total Protein 6.7 g/dL (6.2-8.2)
== END | disposition home or self-care (01) ==
LOC: LABWHC1 11:18
PROVIDERS: ATTEND Nurse Practitioner
DX: R10.12 Left upper quadrant pain (principal)
CPT/HCPCS: 36415; 80053; 82150; 83690; 85025

== ENCOUNTER → 2020-01-14 | Outpatient (CLI) | payer OTHER ==
--- NOTE | 2020-01-14 10:36 | US ---
EXAMINATION TYPE: US liver DATE OF EXAM: 01/14/2020 COMPARISON: NONE CLINICAL HISTORY: R74.8 ABN LEVELS OF SERUM ENZYMES. elevated liver enzymes, nausea, cholecystectomy EXAM MEASUREMENTS: Liver Length: 17.2 cm Gallbladder Wall: Surgically absent CBD: 0.7 cm Right Kidney: 13.6 x 4.7 x 5.4 cm Technical limitations due to patient's body habitus and large amount of overlying bowel content Pancreas: Obscured by bowel gas Liver: attenuating, unable to penetrate Gallbladder: Surgically absent Evidence for sonographic Wilkins's sign: no CBD: visualized portion appears wnl Right Kidney: no evidence of hydronephrosis IMPRESSION: Hepatic steatosis.
== END | disposition home or self-care (01) ==
LOC: RADUSWWP 09:33
PROVIDERS: ATTEND Internal Medicine Gastroenterology
DX: K76.0 Fatty (change of) liver, not elsewhere classified (principal)
CPT/HCPCS: 76705

== ENCOUNTER 2020-01-18 08:03 | Day surgery (SDC) | payer OTHER ==
[2020-01-17 10:46] VITALS: BMI 41.8
[~2020-01-18 08:03] MED LIST changes: -DEXAMETHASONE SOD PHOSPHATE 10 MG/ML 1 ML VIAL IV ONE; -HEPARIN SODIUM,PORCINE 5,000 UNIT/ML 1 ML VIAL SQ ONE; +LACTATED RINGERS 1,000 ML IV SCH; +LIDOCAINE 1% (10MG/ML) FOR IV START INTRADERMA PRN; -LIDOCAINE 1% 20 ML VIAL (10MG/ML) FOR IV START INTRADERMA PRN; -MIDAZOLAM 2 MG/2 ML VIAL IV PRN; -SCOPOLAMINE 1.5MG/72HR PATCH TRANSDERM ONE; -ceFAZolin 2 GM in SODIUM CHLORIDE 0.9% 100 ML IVPB ONE
[2020-01-18 08:36] VITALS: RESP 16; TEMP 97.3
[2020-01-18] MEDS ORDERED: INSULIN ASPART (NovoLOG) 100 UNIT/ML VIAL SQ ONE (08:50)
[2020-01-18 08:55] LABS: Glucose,Whole Blood 282 mg/dL (75-99)
[2020-01-18] MEDS ORDERED: PROPOFOL 10 MG/ML 20 ML VIAL IV ONE (09:00)
[2020-01-18] MEDS ORDERED: LIDOCAINE 1% INJ 10MG/ML (20 ML MDV) ONE (09:00)
--- NOTE | 2020-01-18 09:09 | P.PCN ---
Date of Procedure: 01/18/20 Procedure(s) Performed: BRIEF HISTORY: Patient is a 44-year-old, pleasant, female scheduled for an upper endoscopy as a part of evaluation of long-standing history of GERD with worsening symptoms.. PROCEDURE PERFORMED: Esophagogastroduodenoscopy with biopsy. PREOPERATIVE DIAGNOSIS: And sent history of GERD with worsening symptoms. IV sedation per anesthesia. PROCEDURE: After informed consent was obtained, the patient was brought into the endoscopy unit. IV sedation was administered by Anesthesia under continuous monitoring. Initially the Olympus GIF-140 video endoscope was inserted into the mouth. Esophagus intubated without any difficulty. It was gradually advanced into the stomach and duodenum and carefully examined. The bulb and the second part of the duodenum appeared normal. The scope at this time was withdrawn to the stomach, adequately insufflated with air, and upon careful examination, mucosa of the antrum, had linear streaks of erythema noted in the antrum which were biopsied. body, cardia and the fundus appeared normal. The scope was then withdrawn into the esophagus. The GE junction was located at 39 cm from the incisors. The esophagus appeared normal. There were no erosions or ulcerations seen, biopsies were done from the distal esophagus and the patient tolerated the procedure well. IMPRESSION: 1.. Mild antral gastritis 2. Normal-appearing esophagus with no evidence of esophagitis or Sotelo's esophagus RECOMMENDATIONS: The findings of this examination were discussed with the patient as well as her family. She will follow with the biopsy results. She was advised to continue with omeprazole 20 mg twice daily as well as Carafate 1 g 4 times daily. She'll be seen in office in 2-3 weeks
[2020-01-18 09:15] VITALS: BP 117/77; PULSE 106
== END 2020-01-18 10:22 | disposition home or self-care (01) ==
LOC: ORWHC2ENDO 08:03
PROVIDERS: ATTEND Internal Medicine Gastroenterology
DX: K29.50 Unspecified chronic gastritis without bleeding (principal); K31.89 Other diseases of stomach and duodenum; K21.9 Gastro-esophageal reflux disease without esophagitis; J45.909 Unspecified asthma, uncomplicated; E11.9 Type 2 diabetes mellitus without complications; M41.9 Scoliosis, unspecified; Z79.899 Other long term (current) drug therapy
CPT/HCPCS: 81025; 88305; 43239; J2001; J2704

== ENCOUNTER 2020-02-15 07:25 | Day surgery (SDC) | payer OTHER ==
[2020-02-13 15:19] VITALS: BMI 40.7
[2020-02-15 07:46] VITALS: RESP 16; TEMP 98.1
[2020-02-15] MEDS ORDERED: INSULIN ASPART (NovoLOG) 100 UNIT/ML VIAL SQ ONE ×2 (08:04→08:51)
[2020-02-15] MEDS ORDERED: PROPOFOL 10 MG/ML 20 ML VIAL IV ONE (08:06)
[2020-02-15 08:10] LABS: Glucose,Whole Blood 264 mg/dL (75-99)
--- NOTE | 2020-02-15 08:19 | P.PCN ---
Date of Procedure: 02/15/20 Procedure(s) Performed: BRIEF HISTORY: Patient is a pleasant 44-year-old pleasant white female scheduled for an elective colonoscopy as a part of evaluation of iron deficiency anemia and abdominal pain. PROCEDURE PERFORMED: Colonoscopy with biopsy. PREOPERATIVE DIAGNOSIS: Iron deficiency anemia and abdominal pain. IV sedation per Anesthesia. PROCEDURE: After informed consent was obtained, the patient, was brought into the endoscopy unit. IV sedation was administered by Anesthesia under continuous monitoring. Digital rectal examination was normal. Initially the Olympus CF-160 flexible video colonoscope was then inserted in the rectum, gradually advanced into the cecum without any difficulty. Careful examination was performed as the scope was gradually being withdrawn. Ileocecal valve and the appendiceal orifice were visualized and appeared normal. Prep was excellent. Mucosa of the cecum, ascending colon, appeared normal. The transverse colon there was a 3 mm polyp that was removed by cold biopsy. Rest of the transverse colon, descending colon, sigmoid colon, and rectum appeared normal. Retroflexion was performed in the rectum and no lesions were seen. The patient tolerated the procedure well. IMPRESSION: 3 mm sessile transverse colon polyp status post removal by cold biopsy Rest of the colon appeared normal RECOMMENDATIONS: Findings of this examination were discussed with the patient as well as her family. She was advised to follow with the biopsy results. If the biopsy shows an adenoma she can have a repeat colonoscopy in 5 years
[2020-02-15 08:36] LABS: Glucose,Whole Blood 251 mg/dL (75-99)
[2020-02-15 08:39] VITALS: BP 106/71; PULSE 88
== END 2020-02-15 09:05 | disposition home or self-care (01) ==
LOC: ORWHC2ENDO 07:25
PROVIDERS: ATTEND Internal Medicine Gastroenterology
DX: D12.3 Benign neoplasm of transverse colon (principal); D50.9 Iron deficiency anemia, unspecified; K21.9 Gastro-esophageal reflux disease without esophagitis; M26.29 Other anomalies of dental arch relationship; J45.909 Unspecified asthma, uncomplicated; E11.9 Type 2 diabetes mellitus without complications; Z79.899 Other long term (current) drug therapy; Z90.49 Acquired absence of other specified parts of digestive tract; Z98.890 Other specified postprocedural states; Z90.89 Acquired absence of other organs; Z98.51 Tubal ligation status
CPT/HCPCS: 81025; 88305; 45380; J2704

== ENCOUNTER → 2020-05-06 | Outpatient (CLI) | payer OTHER ==
--- NOTE | 2020-05-06 13:12 | XR ---
EXAMINATION TYPE: XR shoulder limited 2 views LT, XR forearm 2 views LT DATE OF EXAM: 05/06/2020 COMPARISON: NONE HISTORY: 44-year-old female with fall down stairs 2 months ago, pain and stiffness FINDINGS: Left shoulder: There is prominent bony irregularity at the greater tuberosity. Some bony fragments are present along the lateral acromion. Difficult to assess the subacromial space on these 2 views. No acute fracture, subluxation, or dislocation seen. Left forearm: No elbow joint effusion. Some spurring along the coronoid process of the proximal ulna. No acute frac ture, subluxation, location is seen. IMPRESSION: 1. Left shoulder: Prominent bony irregularity at the greater tuberosity suggest rotator cuff tendinop athy. If concern for rotator cuff tear, MRI can be performed. Some bony fragments, possible sequela o f old injury along the lateral aspect of the acromion. 2. Left forearm: Some degenerative spurring at the coronoid process of the ulnar trochlear joint. No acute osseous abnormality seen.
== END | disposition home or self-care (01) ==
LOC: RADXRMAIN 12:29
PROVIDERS: ATTEND Internal Medicine
DX: M89.8X1 Other specified disorders of bone, shoulder (principal); M25.742 Osteophyte, left hand

== ENCOUNTER → 2020-06-23 | Outpatient (CLI) | payer OTHER ==
--- NOTE | 2020-06-23 15:01 | MR ---
EXAMINATION TYPE: MR shoulder LT wo con DATE OF EXAM: 06/23/2020 11:59 AM COMPARISON: 07/13/2016 HISTORY: Left shoulder pain TECHNIQUE: Multiplanar multispin echo imaging of the left shoulder was performed. FINDINGS: Rotator cuff : There is thickening and heterogeneity of the supraspinatus tendon compatible chronic t endinopathy. Full thickness partial tear is identified at the critical zone measuring approximately 6 mm. Remaining constituents of the rotator cuff are intact. Bursa: No bursal effusion or thickening is seen. Musculature: There is no muscular tear, contusion, or atrophy. Acromioclavicular joint : There are mild degenerative changes of the acromioclavicular joint. Subacro mial spurring noted resulting in impingement. Osseous structures : There are no fractures or regions of abnormal bone marrow signal intensity. Long biceps tendon : The biceps tendon is normally situated within the bicipital groove. No complete or partial biceps tendon tear is present. Glenohumeral Joint fluid : There is no glenohumeral joint effusion. Cartilage and Bone : No focal hyaline cartilage defects are noted. No Hill-Sachs, reverse Hill-Sachs, or bony Bankart lesions are seen. Labrum : There are no SLAP or soft tissue Bankart lesions. No paralabral cysts are seen. OTHER FINDINGS : none IMPRESSION: 1. There is thickening and heterogeneity of the supraspinatus tendon compatible chronic tendinopathy. Full thickness partial tear is identified at the critical zone measuring approximately 6 mm. Impinge ment as noted.
== END | disposition home or self-care (01) ==
LOC: RADMRIMAIN 11:06
PROVIDERS: ATTEND Orthopaedic Surgery
DX: M67.814 Other specified disorders of tendon, left shoulder (principal); M75.112 Incomplete rotator cuff tear or rupture of left shoulder, not specified as traumatic; M75.42 Impingement syndrome of left shoulder

== ENCOUNTER → 2021-02-04 | Outpatient (CLI) | payer OTHER ==
--- NOTE | 2021-02-04 11:24 | US ---
EXAMINATION TYPE: US kidneys/renal and bladder DATE OF EXAM: 02/04/2021 COMPARISON: NONE CLINICAL HISTORY: R10.9 left flank pain. left flank pain for weeks, h/o stones years ago EXAM MEASUREMENTS: Right Kidney: 12.7 x 5.0 x 6.2 cm Left Kidney: 12.8 x 5.4 x 5.4 cm Right Kidney: No hydronephrosis or masses seen Left Kidney: No hydronephrosis or masses seen Bladder: wnl Bilateral Jets seen: yes IMPRESSION: Normal bilateral renal ultrasound
== END | disposition home or self-care (01) ==
LOC: RADUSWWP 07:53
PROVIDERS: ATTEND Internal Medicine
DX: R10.9 Unspecified abdominal pain (principal)
CPT/HCPCS: 76770

== ENCOUNTER 2021-06-09 15:12 | Emergency (ER) | payer OTHER ==
[2021-06-09 15:32] VITALS: RESP 19; TEMP 98
--- NOTE | 2021-06-09 16:24 | ED ---
URI HPI - General Chief Complaint: Upper Respiratory Infection Stated Complaint: cough Time Seen by Provider: 06/09/21 16:23 Source: patient, RN notes reviewed Mode of arrival: ambulatory Limitations: no limitations - History of Present Illness Initial Comments: 46-year-old female presented emergency department for COVID-19 testing. Patient states that they were exposed. Patient has a cough no fever no chills no bodyaches no other associated complaints. - Related Data Home Medications Medication Instructions Recorded Confirmed Albuterol Inhaler (Mhu) [Ventolin 1 - 2 puff INHALATION RT-Q6H PRN 09/06/16 02/15/20 Hfa Inhaler (Mhu)] Omeprazole 20 mg PO BID 06/03/17 02/15/20 Sucralfate [Carafate] 1 gm PO AC-TID 01/17/20 02/15/20 Allergies Allergy/AdvReac Type Severity Reaction Status Date / Time No Known Allergies Allergy Verified 02/15/20 07:45 Review of Systems ROS Statement: Those systems with pertinent positive or pertinent negative responses have been documented in the HPI. ROS Other: All systems not noted in ROS Statement are negative. Past Medical History Past Medical History: Diabetes Mellitus, Hypertension, Musculoskeletal Disorder, Osteoarthritis (OA) Additional Past Medical History / Comment(s): ANEMIA, SCOLIOSIS, NO DM RX AT THIS TIME, NO HTN RX, HEAVY MENSES History of Any Multi-Drug Resistant Organisms: None Reported Past Surgical History: Appendectomy, Section, Cholecystectomy, Orthopedic Surgery, Tonsillectomy, Tubal Ligation Additional Past Surgical History / Comment(s): bilateral carpal tunnel surgery, EGD Past Anesthesia/Blood Transfusion Reactions: No Reported Reaction Past Psychological History: No Psychological Hx Reported Smoking Status: Former smoker - Past Family History Father Family Medical History: CVA/TIA, Diabetes Mellitus Mother Family Medical History: No Reported History General Exam Limitations: no limitations General appearance: alert, in no apparent distress Head exam: Present: atraumatic, normocephalic, normal inspection Eye exam: Present: normal appearance, PERRL, EOMI. Absent: scleral icterus, conjunctival injection, periorbital swelling ENT exam: Present: normal exam, mucous membranes moist Neck exam: Present: normal inspection. Absent: tenderness, meningismus, lymphadenopathy Respiratory exam: Present: normal lung sounds bilaterally. Absent: respiratory distress, wheezes, rales, rhonchi, stridor Cardiovascular Exam: Present: regular rate, normal rhythm, normal heart sounds. Absent: systolic murmur, diastolic murmur, rubs, gallop, clicks Course Vital Signs 06/09/21 06/09/21 15:30 16:35 Temperature 98.0 F 98.0 F Pulse Rate 90 88 Respiratory 19 19 Rate Blood Pressure 135/87 133/72 O2 Sat by Pulse 98 97 Oximetry Medical Decision Making - Medical Decision Making Patient has negative COVID-19. - Lab Data Lab Results 06/09/21 Range/Units 15:36 Coronavirus (PCR) Not Detected (Not Detectd) Disposition Clinical Impression: Cough, URI (upper respiratory infection) Disposition: HOME SELF-CARE Condition: Stable Instructions (If sedation given, give patient instructions): Upper Respiratory Infection (ED) Additional Instructions: Please return to the Emergency Department if symptoms worsen or any other concerns. Is patient prescribed a controlled substance at d/c from ED?: No Referrals: Jimmie Gutiérrez MD [Primary Care Provider] - 1-2 days Time of Disposition: 16:24
[2021-06-09 16:36] VITALS: BP 133/72; PULSE 88
== END 2021-06-09 16:36 | disposition home or self-care (01) ==
LOC: EC 15:12
DX: J06.9 Acute upper respiratory infection, unspecified (principal); E11.9 Type 2 diabetes mellitus without complications; I10 Essential (primary) hypertension; Z87.891 Personal history of nicotine dependence; Z20.822 Contact with and (suspected) exposure to COVID-19
CPT/HCPCS: 87635; 99283

== ENCOUNTER 2021-08-03 13:55 | Emergency (ER) | payer OTHER ==
[2021-08-03 14:02] VITALS: RESP 16; TEMP 97.7
[2021-08-03] MEDS ORDERED: SODIUM CHLORIDE 0.9% 1,000 ML IV STA (15:25)
[2021-08-03] MEDS ORDERED: DEXAMETHASONE SOD PHOSPHATE 10 MG/ML 1 ML VIAL IV STA (15:25)
[2021-08-03] MEDS ORDERED: KETOROLAC 15 MG/ML 1 ML VIAL IVP STA (15:25)
[2021-08-03] MEDS ORDERED: diphenhydrAMINE 50 MG/ML 1 ML VIAL IVP STA (15:25)
--- NOTE | 2021-08-03 15:28 | ED ---
General Adult HPI - General Chief complaint: Headache Stated complaint: Headache Time Seen by Provider: 08/03/21 15:20 Source: patient Mode of arrival: ambulatory Limitations: no limitations - History of Present Illness Initial comments: Well-appearing 46-year-old female presents to the emergency room with complaints of a frontal headache for the past 3 days. She states that her daughter has coronavirus however she has not been around her. She denies any fevers nausea vomiting or diarrhea. She states that this is a frontal headache that is simila r to her previous migraine headaches. She did try taking Fioricet with no relief. She drove herself to the hospital for evaluation. -: days(s) (3) Location: head (frontal) Radiation: non-radiation Severity scale (1-10): 8 Quality: aching Consistency: constant Improves with: none Worsens with: none Associated Symptoms: denies other symptoms Treatments Prior to Arrival: other (Fioricet) - Related Data Home Medications Medication Instructions Recorded Confirmed Albuterol Inhaler (Mhu) [Ventolin 1 - 2 puff INHALATION RT-Q6H PRN 09/06/16 02/15/20 Hfa Inhaler (Mhu)] Omeprazole 20 mg PO BID 06/03/17 02/15/20 Sucralfate [Carafate] 1 gm PO AC-TID 01/17/20 02/15/20 Allergies Allergy/AdvReac Type Severity Reaction Status Date / Time No Known Allergies Allergy Verified 08/03/21 14:00 Review of Systems ROS Statement: Those systems with pertinent positive or pertinent negative responses have been documented in the HPI. ROS Other: All systems not noted in ROS Statement are negative. Past Medical History Past Medical History: Diabetes Mellitus, Hypertension, Musculoskeletal Disorder, Osteoarthritis (OA) Additional Past Medical History / Comment(s): ANEMIA, SCOLIOSIS, NO DM RX AT THIS TIME, NO HTN RX, HEAVY MENSES History of Any Multi-Drug Resistant Organisms: None Reported Past Surgical History: Appendectomy, Section, Cholecystectomy, Orthopedic Surgery, Tonsillectomy, Tubal Ligation Additional Past Surgical History / Comment(s): bilateral carpal tunnel surgery, EGD Past Anesthesia/Blood Transfusion Reactions: No Reported Reaction Past Psychological History: No Psychological Hx Reported Smoking Status: Former smoker - Past Family History Father Family Medical History: CVA/TIA, Diabetes Mellitus Mother Family Medical History: No Reported History General Exam Limitations: no limitations General appearance: alert, in no apparent distress Head exam: Present: atraumatic, normocephalic, normal inspection Eye exam: Present: normal appearance, PERRL, EOMI. Absent: scleral icterus, conjunctival injection, nystagmus, periorbital swelling, periorbital tenderness ENT exam: Present: normal exam, normal oropharynx, mucous membranes moist Neck exam: Present: normal inspection, full ROM. Absent: tenderness, meningismus, lymphadenopathy Respiratory exam: Present: normal lung sounds bilaterally. Absent: respiratory distress, wheezes, rales, rhonchi, stridor Cardiovascular Exam: Present: regular rate, normal rhythm, normal heart sounds. Absent: systolic murmur, diastolic murmur, rubs, gallop, clicks GI/Abdominal exam: Present: soft. Absent: distended, tenderness, guarding, rebound, rigid Back exam: Present: normal inspection, full ROM. Absent: tenderness, CVA tenderness (R), CVA tenderness (L), rash noted Neurological exam: Present: alert, oriented X3 Psychiatric exam: Present: normal affect, normal mood Skin exam: Present: warm, dry, intact, normal color. Absent: cyanosis, diaphoretic Course Vital Signs 08/03/21 08/03/21 14:00 16:02 Temperature 97.7 F Pulse Rate 79 81 Respiratory 16 16 Rate Blood Pressure 136/75 129/78 O2 Sat by Pulse 98 97 Oximetry - Reevaluation(s) Reevaluation #1: 08/03/21 16:36 Patient states she just received her medications 10 minutes ago but is starting to feel little bit better. IV fluids continues to infuse Time: 16:36 Medical Decision Making - Medical Decision Making Well-appearing patient, alert and oriented 4, presents with complaints of headache similar to her previous migraine headaches. She denies any fevers, weakness or visual changes. She did take Fioricet prior to arrival with no r elief. She was able to drive herself to the hospital today. She denies any trauma, not on any blood thinners. Upon exam she has no focal neurological deficits. She has no temporal tenderness. Pupils are equal and reactive with no evidence of nystagmus. Covid test is negative. CT was not ordered and as she states this is similar to her previous migraine headaches. She was given IV fluids, Toradol and Benadryl and steroids with some relief. Instructed to follow up with her primary care doctor this week and return to the emergency room for new or concerning symptoms. Case discussed with Dr. Dale - Lab Data Lab Results 08/03/21 Range/Units 14:58 Coronavirus (PCR) Not Detected (Not Detectd) Disposition Clinical Impression: Headache Disposition: HOME SELF-CARE Condition: Good Instructions (If sedation given, give patient instructions): Acute Headache (ED) Additional Instructions: Increase your fluid intake. Continue your previously prescribed medications for your headaches. Follow-up with your primary care doctor this week. Return to the emergency room with any new or concerning symptoms Is patient prescribed a controlled substance at d/c from ED?: No Referrals: Jimmie Gutiérrez MD [Primary Care Provider] - 1-2 days Time of Disposition: 17:21
[2021-08-03 16:25] VITALS: BP 129/78; PULSE 81
[2021-08-03] MEDS ORDERED: ACETAMINOPHEN TAB 500 MG TAB PO STA (16:51)
== END 2021-08-03 17:43 | disposition home or self-care (01) ==
LOC: EC 13:55
DX: R51.9 Headache, unspecified (principal); I10 Essential (primary) hypertension; E11.9 Type 2 diabetes mellitus without complications; F17.200 Nicotine dependence, unspecified, uncomplicated; Z20.822 Contact with and (suspected) exposure to COVID-19
CPT/HCPCS: 87635; 99284; 96374; 96375; 96361; J1200; J1100; J1885

== ENCOUNTER 2021-09-07 22:14 | Emergency (ER) | payer OTHER ==
[2021-09-07 22:20] VITALS: TEMP 97.6
[2021-09-07 22:57] LABS: Anisocytosis Slight; Basophils # (A) 0.1 k/uL (0-0.2); Basophils % (A) 1 %; Eosinophils # (A) 0.4 k/uL (0-0.7); Eosinophils % (A) 4 %; HCT 37.1 % (34.0-46.0); HGB 10.6 gm/dL (11.4-16.0); Hypochromasia Marked; Lymphocytes # (A) 2.2 k/uL (1.0-4.8); Lymphocytes % (A) 24 %; MCH 18.7 pg (25.0-35.0); MCHC 28.5 g/dL (31.0-37.0); MCV 65.5 fL (80.0-100.0); Mean Platelet Volume 7.7; Microcytosis Marked; Monocytes # (A) 0.5 k/uL (0-1.0); Monocytes % (A) 5 %; Neutrophils # (A) 6.1 k/uL (1.3-7.7); Neutrophils % (A) 65 %; Platelet Count 252 k/uL (150-450); RBC 5.66 m/uL (3.80-5.40); RDW 18.6 % (11.5-15.5); WBC 9.5 k/uL (3.8-10.6)
[2021-09-07 23:19] LABS: ALT 17 U/L (4-34); AST 26 U/L (14-36); African American GFR (CKD) >90 (>60 ml/min/1.73 sqM); Albumin 4.1 g/dL (3.5-5.0); Alkaline Phosphatase 103 U/L (38-126); Anion Gap 9 mmol/L; Blood Urea Nitrogen 8 mg/dL (7-17); Calcium 9.2 mg/dL (8.4-10.2); Carbon Dioxide 24 mmol/L (22-30); Chloride 105 mmol/L (98-107); Glucose 187 mg/dL (74-99); Magnesium 1.8 mg/dL (1.6-2.3); Non-African American GFR(CKD) >90 (>60 ml/min/1.73 sqM); Potassium 3.6 mmol/L (3.5-5.1); Sodium 138 mmol/L (137-145); Total Bilirubin 0.7 mg/dL (0.2-1.3); Total Protein 7.8 g/dL (6.3-8.2)
--- NOTE | 2021-09-07 23:21 | XR ---
EXAMINATION TYPE: XR chest 2V DATE OF EXAM: 09/07/2021 COMPARISON: 09/07/2016 HISTORY: Chest pain TECHNIQUE: FINDINGS: Heart and mediastinum are normal. Lungs are clear. Diaphragm is normal. There is a mild tho racic dextroscoliosis. Costophrenic angles are clear. Bony thorax is intact. IMPRESSION: No active cardiopulmonary disease. No change.
[2021-09-07 23:27] LABS: INR 0.9 (<1.2); Partial Thromboplastin Time 23.1 sec (22.0-30.0)
[2021-09-07] MEDS ORDERED: LORazepam 1 MG TAB PO STA (23:51)
[2021-09-07] MEDS ORDERED: KETOROLAC 15 MG/ML 1 ML VIAL IM STA (23:51)
[2021-09-07] MEDS ORDERED: ONDANSETRON ODT 4 MG TAB PO STA (23:51)
--- NOTE | 2021-09-07 23:59 | ED ---
Chest Pain HPI - General Chief Complaint: Chest Pain Stated Complaint: Chest Pain,SOB Time Seen by Provider: 09/07/21 23:44 Source: patient, RN notes reviewed, old records reviewed Mode of arrival: ambulatory Limitations: no limitations - History of Present Illness Initial Comments: This is a 46-year-old female to the emergency department for evaluation of chest pain. Nonspecific chest pain worsening she takes a deep breath. No shortness of breath. Patient is to significant stress family members . Patient's of homicidal or suicidal. No drugs or alcohol. Patient has early diabetes just started on oral medications. Blood pressure is an issue, blood sugar is well- controlled. No high cholesterol nonsmoker. No fevers no travel history no sick contacts. No prior history of medical MD Complaint: chest pain, other (Stress and anxiety) -: days(s) Onset: during rest Pain Location: left chest, right chest Pain Radiation: none Severity: moderate Severity scale (1-10): 4 Quality: aching Consistency: intermittent Improves With: nothing Worsens With: nothing Context: other (none) Anginal Symptoms: other (none) Other Symptoms: other (none) Treatments Prior to Arrival: none - Related Data Home Medications Medication Instructions Recorded Confirmed Albuterol Inhaler (Mhu) [Ventolin 1 - 2 puff INHALATION RT-Q6H PRN 09/06/1602/01 Hfa Inhaler (Mhu)] Omeprazole 20 mg PO BID 06/03/17 02/15/20 Sucralfate [Carafate] 1 gm PO AC-TID 01/17/20 02/15/20 Allergies Allergy/AdvReac Type Severity Reaction Status Date / Time No Known Allergies Allergy Verified 09/07/21 22:20 Review of Systems ROS Statement: Those systems with pertinent positive or pertinent negative responses have been documented in the HPI. ROS Other: All systems not noted in ROS Statement are negative. Past Medical History Past Medical History: Diabetes Mellitus, Hypertension, Musculoskeletal Disorder, Osteoarthritis (OA) Additional Past Medical History / Comment(s): ANEMIA, SCOLIOSIS, NO DM RX AT THIS TIME, NO HTN RX, HEAVY MENSES History of Any Multi-Drug Resistant Organisms: None Reported Past Surgical History: Appendectomy, Section, Cholecystectomy, Orthopedic Surgery, Tonsillectomy, Tubal Ligation Additional Past Surgical History / Comment(s): bilateral carpal tunnel surgery, EGD Past Anesthesia/Blood Transfusion Reactions: No Reported Reaction Past Psychological History: No Psychological Hx Reported Smoking Status: Former smoker Past Alcohol Use History: None Reported Past Drug Use History: None Reported - Past Family History Father Family Medical History: CVA/TIA, Diabetes Mellitus Mother Family Medical History: No Reported History General Exam Limitations: no limitations General appearance: anxious Head exam: Present: atraumatic, normocephalic, normal inspection Eye exam: Present: normal appearance, PERRL, EOMI. Absent: scleral icterus, conjunctival injection, periorbital swelling ENT exam: Present: normal exam, mucous membranes moist Neck exam: Present: normal inspection. Absent: tenderness, meningismus, lymphadenopathy Respiratory exam: Present: normal lung sounds bilaterally. Absent: respiratory distress, wheezes, rales, rhonchi, stridor Cardiovascular Exam: Present: regular rate, normal rhythm, normal heart sounds. Absent: systolic murmur, diastolic murmur, rubs, gallop, clicks GI/Abdominal exam: Present: soft, normal bowel sounds. Absent: distended, tenderness, guarding, rebound, rigid Extremities exam: Present: normal inspection, full ROM, normal capillary refill. Absent: tenderness, pedal edema, joint swelling, calf tenderness Back exam: Present: normal inspection Neurological exam: Present: alert, oriented X3, CN II-XII intact Psychiatric exam: Present: normal affect, normal mood Skin exam: Present: warm, dry, intact, normal color. Absent: rash Course Vital Signs 09/07/21 22:18 Temperature 97.6 F Pulse Rate 79 Respiratory 18 Rate Blood Pressure 154/84 O2 Sat by Pulse 99 Oximetry - Reevaluation(s) Reevaluation #1: 09/08/21 00:08 Medical records reviewed Reevaluation #2: 09/08/21 00:08 Patient feels significantly improved Reevaluation #3: 09/08/21 00:08 Patient informed results and questions are answered Chest Pain MDM - MDM 38 female to the emergency department with atypical chest pain anxiety and stress. Patient symptoms are greatly improved here in the ER. She can be discharged home Disposition Clinical Impression: Atypical chest pain, Anxiety, Grief reaction Disposition: HOME SELF-CARE Condition: Good Instructions (If sedation given, give patient instructions): Chest Pain (ED), Grief and Loss (ED) Is patient prescribed a controlled substance at d/c from ED?: No Referrals: Jimmie Gutiérrez MD [Primary Care Provider] - 1-2 days
[2021-09-08] MEDS: ACETAMINOPHEN TAB 500 MG TAB PO STA ×2 (00:03→00:08)
[2021-09-08] MEDS ORDERED: ACETAMINOPHEN TAB 500 MG TAB PO STA (00:08)
[2021-09-08] MEDS ORDERED: diazePAM 5 MG TAB PO STA (02:32)
[2021-09-08 02:44] VITALS: BP 121/74; PULSE 95; RESP 16
== END 2021-09-08 02:49 | disposition home or self-care (01) ==
LOC: EC 22:14
DX: R07.89 Other chest pain (principal); F41.9 Anxiety disorder, unspecified; F43.20 Adjustment disorder, unspecified; I10 Essential (primary) hypertension; E11.9 Type 2 diabetes mellitus without complications
CPT/HCPCS: 36415; 93005; 80053; 83735; 84484; 85025; 85610; 85730; 71046; 99285; 96372; J1885

== ENCOUNTER 2021-11-21 21:57 | Emergency (ER) | payer OTHER ==
[2021-11-22] MEDS ORDERED: IBUPROFEN 800 MG TAB PO STA (01:42)
[2021-11-22] MEDS ORDERED: ACETAMINOPHEN TAB 500 MG TAB PO STA (01:42)
--- NOTE | 2021-11-22 01:43 | ED ---
Fever HPI - General Chief Complaint: Upper Respiratory Infection Stated Complaint: Fever Time Seen by Provider: 11/22/21 01:42 Source: patient, RN notes reviewed, old records reviewed Mode of arrival: ambulatory Limitations: no limitations - History of Present Illness Initial Comments: This is a 46-year-old female positive sick contacts coming in with generalized body aches and pains myalgias numbness tingling not feeling well. Patient also has fever. She does have cough sore throat no shortness of breath. Not coughing up any mucus. No nausea vomiting or diarrhea. No abdominal pain. MD Complaint: fever, malaise -: hour(s) Temperature Source: subjective Context: sick contacts, multiple patients with similar symptoms Associated Symptoms: myalgias, sore throat, nausea Treatments Prior to Arrival: none - Related Data Home Medications Medication Instructions Recorded Confirmed Albuterol Inhaler (Mhu) [Ventolin 1 - 2 puff INHALATION RT-Q6H PRN 09/06/16 Hfa Inhaler (Mhu)] Omeprazole 20 mg PO BID 06/03/17 02/15/20 Sucralfate [Carafate] 1 gm PO AC-TID 01/17/20 02/15/20 Allergies Allergy/AdvReac Type Severity Reaction Status Date / Time No Known Allergies Allergy Verified 11/21/21 22:15 Review of Systems ROS Statement: Those systems with pertinent positive or pertinent negative responses have been documented in the HPI. ROS Other: All systems not noted in ROS Statement are negative. Past Medical History Past Medical History: Diabetes Mellitus, Hypertension, Musculoskeletal Disorder, Osteoarthritis (OA) Additional Past Medical History / Comment(s): ANEMIA, SCOLIOSIS, NO DM RX AT THIS TIME, NO HTN RX, HEAVY MENSES History of Any Multi-Drug Resistant Organisms: None Reported Past Surgical History: Appendectomy, Section, Cholecystectomy, Orthopedic Surgery, Tonsillectomy, Tubal Ligation Additional Past Surgical History / Comment(s): bilateral carpal tunnel surgery, EGD Past Anesthesia/Blood Transfusion Reactions: No Reported Reaction Past Psychological History: No Psychological Hx Reported Smoking Status: Former smoker Past Alcohol Use History: Occasional Past Drug Use History: None Reported - Past Family History Father Family Medical History: CVA/TIA, Diabetes Mellitus Mother Family Medical History: No Reported History General Exam - General Exam Comments Initial Comments: No leg pain with range of motion patient is able to ambulate and ambulate on her right leg as well Limitations: no limitations General appearance: alert, in no apparent distress Head exam: Present: atraumatic, normocephalic, normal inspection Eye exam: Present: normal appearance, PERRL, EOMI. Absent: scleral icterus, conjunctival injection, periorbital swelling ENT exam: Present: normal exam, mucous membranes moist Neck exam: Present: normal inspection. Absent: tenderness, meningismus, lymphadenopathy Respiratory exam: Present: normal lung sounds bilaterally. Absent: respiratory distress, wheezes, rales, rhonchi, stridor Cardiovascular Exam: Present: regular rate, normal rhythm, normal heart sounds. Absent: systolic murmur, diastolic murmur, rubs, gallop, clicks GI/Abdominal exam: Present: soft, normal bowel sounds. Absent: distended, tenderness, guarding, rebound, rigid Extremities exam: Present: normal inspection, full ROM, normal capillary refill. Absent: tenderness, pedal edema, joint swelling, calf tenderness Back exam: Present: normal inspection Neurological exam: Present: alert, oriented X3, CN II-XII intact Psychiatric exam: Present: normal affect, normal mood Skin exam: Present: warm, dry, intact, normal color. Absent: rash Course Vital Signs 11/21/21 11/22/21 22:13 01:41 Temperature 100.3 F H 101.1 F H Pulse Rate 104 H 96 Respiratory 20 17 Rate Blood Pressure 154/91 119/74 O2 Sat by Pulse 98 97 Oximetry - Reevaluation(s) Reevaluation #1: 11/22/21 Medical record is reviewed Patient is significantly improved here in the emergency department Patient informed results and questions answered Medical Decision Making - Medical Decision Making 46 female with severe body aches and fevers patient does appear to have covert airflow she also has tenderness of her great right trochanter likely mild bursitis at that site. Patient given symptomatically treatment can be discharged home she feels improved - Lab Data Lab Results 11/21/21 Range/Units 22:17 Influenza Type A (PCR) Not Detected (Not Detectd) Influenza Type B (PCR) Not Detected (Not Detectd) RSV (PCR) Not Detected (Not Detectd) SARS-CoV-2 (PCR) Not Detected (Not Detectd) Disposition Clinical Impression: Fever, Viral syndrome, Bursitis of hip, right Disposition: HOME SELF-CARE Condition: Good Instructions (If sedation given, give patient instructions): Hip Bursitis (ED), Fever in Adults (ED) Is patient prescribed a controlled substance at d/c from ED?: No Referrals: Jimmie Gutiérrez MD [Primary Care Provider] - 1-2 days
[2021-11-22 01:48] VITALS: BP 119/74; PULSE 96; RESP 17; TEMP 101.1
[2021-11-22] MEDS ORDERED: DEXAMETHASONE SOD PHOSPHATE 10 MG/ML 1 ML VIAL IM STA (02:18)
[2021-11-22] MEDS ORDERED: PROCHLORPERAZINE 10 MG TAB PO STA (02:18)
[2021-11-22] MEDS ORDERED: diphenhydrAMINE 50 MG CAP PO STA (02:18)
== END 2021-11-22 03:23 | disposition home or self-care (01) ==
LOC: EC 21:57
DX: R50.9 Fever, unspecified (principal); B34.9 Viral infection, unspecified; M70.71 Other bursitis of hip, right hip; E11.9 Type 2 diabetes mellitus without complications; I10 Essential (primary) hypertension; M19.90 Unspecified osteoarthritis, unspecified site; M41.9 Scoliosis, unspecified; Z87.891 Personal history of nicotine dependence; Z20.822 Contact with and (suspected) exposure to COVID-19; Z72.89 Other problems related to lifestyle
CPT/HCPCS: 87636; 99284; 96372; S0183; J1100

== ENCOUNTER 2022-01-07 09:01 | Emergency (ER) | payer OTHER ==
[2022-01-07 09:06] VITALS: BP 120/81; PULSE 62; RESP 18; TEMP 98.6
[2022-01-07] MEDS ORDERED: SODIUM CHLORIDE 0.9% 2,000 ML IV STA (09:32)
[2022-01-07] MEDS ORDERED: KETOROLAC 15 MG/ML 1 ML VIAL IVP STA ×2 (09:32→12:29)
[2022-01-07] MEDS ORDERED: ONDANSETRON 4 MG/2 ML VIAL IVP STA (09:32)
[2022-01-07 09:47] LABS: Anisocytosis Slight; Basophils % (A) 0 %; Eosinophils # (A) 0.3 k/uL (0-0.7); Eosinophils % (A) 4 %; HCT 33.8 % (34.0-46.0); HGB 10.1 gm/dL (11.4-16.0); Hypochromasia Marked; Lymphocytes # (A) 1.5 k/uL (1.0-4.8); Lymphocytes % (A) 17 %; MCH 19.7 pg (25.0-35.0); MCHC 29.8 g/dL (31.0-37.0); MCV 65.9 fL (80.0-100.0); Mean Platelet Volume 8.3; Microcytosis Marked; Monocytes # (A) 0.4 k/uL (0-1.0); Monocytes % (A) 5 %; Neutrophils # (A) 6.5 k/uL (1.3-7.7); Neutrophils % (A) 73 %; Platelet Count 242 k/uL (150-450); RBC 5.12 m/uL (3.80-5.40); RDW 18.6 % (11.5-15.5); WBC 8.9 k/uL (3.8-10.6)
[2022-01-07 09:56] LABS: ALT 15 U/L (4-34); AST 21 U/L (14-36); African American GFR (CKD) >90 (>60 ml/min/1.73 sqM); Albumin 3.7 g/dL (3.5-5.0); Alkaline Phosphatase 92 U/L (38-126); Amylase 53 U/L (30-110); Anion Gap 7 mmol/L; Blood Urea Nitrogen 11 mg/dL (7-17); Calcium 8.7 mg/dL (8.4-10.2); Carbon Dioxide 26 mmol/L (22-30); Chloride 105 mmol/L (98-107); Glucose 264 mg/dL (74-99); Lipase 29 U/L (23-300); Non-African American GFR(CKD) >90 (>60 ml/min/1.73 sqM); Potassium 3.6 mmol/L (3.5-5.1); Sodium 138 mmol/L (137-145); Total Bilirubin 0.7 mg/dL (0.2-1.3); Total Protein 6.9 g/dL (6.3-8.2)
--- NOTE | 2022-01-07 10:49 | ED ---
Abdominal Pain HPI - General Chief Complaint: Abdominal Pain Stated Complaint: Abd Pain/Stomach issues Time Seen by Provider: 01/07/22 09:13 Source: patient, RN notes reviewed Mode of arrival: ambulatory Limitations: no limitations - History of Present Illness Initial Comments: 46-year-old female presents emergency Department with chief complaint of nausea and diarrhea, abdominal pain. Patient states that she started having nausea and diarrhea over 2 weeks ago states it's been steadily improving but states not developing right lower quadrant abdominal pain. Patient had prior cholecystomy, appendectomy. Denies any dysuria no hematuria no melena hematochezia. No vaginal bleeding or vaginal discharge. No prior history of diverticulitis. Patient denies any chance she's had a prior tubal ligation. Denies fevers or chills no chest pain. - Related Data Home Medications Medication Instructions Recorded Confirmed Ibuprofen [Motrin] 800 mg PO BID PRN 01/07/22 01/07/22 Previous Rx's Medication Instructions Recorded Ciprofloxacin HCl [Cipro] 500 mg PO Q12HR #14 tablet 01/07/22 Allergies Allergy/AdvReac Type Severity Reaction Status Date / Time No Known Allergies Allergy Verified 01/07/22 11:17 Review of Systems ROS Statement: Those systems with pertinent positive or pertinent negative responses have been documented in the HPI. ROS Other: All systems not noted in ROS Statement are negative. Past Medical History Past Medical History: Diabetes Mellitus, Hypertension, Musculoskeletal Disorder, Osteoarthritis (OA) Additional Past Medical History / Comment(s): ANEMIA, SCOLIOSIS, NO DM RX AT THIS TIME, NO HTN RX, HEAVY MENSES History of Any Multi-Drug Resistant Organisms: None Reported Past Surgical History: Appendectomy, Section, Cholecystectomy, Orthopedic Surgery, Tonsillectomy, Tubal Ligation Additional Past Surgical History / Comment(s): bilateral carpal tunnel surgery, EGD Past Anesthesia/Blood Transfusion Reactions: No Reported Reaction Past Psychological History: No Psychological Hx Reported Smoking Status: Former smoker Past Alcohol Use History: Occasional Past Drug Use History: None Reported - Past Family History Father Family Medical History: CVA/TIA, Diabetes Mellitus Mother Family Medical History: No Reported History General Exam Limitations: no limitations General appearance: alert, in no apparent distress Head exam: Present: atraumatic, normocephalic, normal inspection Eye exam: Present: normal appearance, PERRL, EOMI. Absent: scleral icterus, conjunctival injection, periorbital swelling ENT exam: Present: normal exam, normal oropharynx, mucous membranes moist Neck exam: Present: normal inspection, full ROM. Absent: tenderness, meningismus, lymphadenopathy Respiratory exam: Present: normal lung sounds bilaterally. Absent: respiratory distress, wheezes, rales, rhonchi, stridor Cardiovascular Exam: Present: regular rate, normal rhythm, normal heart sounds. Absent: systolic murmur, diastolic murmur, rubs, gallop, clicks GI/Abdominal exam: Present: soft, tenderness, normal bowel sounds. Absent: distended, guarding, rebound, rigid Back exam: Absent: CVA tenderness (R), CVA tenderness (L) Course Vital Signs 01/07/22 09:02 Temperature 98.6 F Pulse Rate 62 Respiratory 18 Rate Blood Pressure 120/81 O2 Sat by Pulse 96 Oximetry Medical Decision Making - Medical Decision Making 46-year-old presented for abdominal discomfort. Patient had ongoing diarrhea. Patient does have evidence of urinary tract infection. Patient lab work is unremarkable CT showed possible mass left kidney ultrasound was ordered show simple cyst. Patient discharged on antibiotics return parameters discussed. - Lab Data Result diagrams: 01/07/22 09:25 01/07/22 09:25 Lab Results 01/07/22 01/07/22 01/07/22 Range/Units 09:25 09:25 09:25 WBC 8.9 (3.8-10.6) k/uL RBC 5.12 (3.80-5.40) m/uL Hgb 10.1 L (11.4-16.0) gm/dL Hct 33.8 L (34.0-46.0) % MCV 65.9 L (80.0-100.0) fL MCH 19.7 L (25.0-35.0) pg MCHC 29.8 L (31.0-37.0) g/dL RDW 18.6 H (11.5-15.5) % Plt Count 242 (150-450) k/uL MPV 8.3 Neutrophils % 73 % Lymphocytes % 17 % Monocytes % 5 % Eosinophils % 4 % Basophils % 0 % Neutrophils # 6.5 (1.3-7.7) k/uL Lymphocytes # 1.5 (1.0-4.8) k/uL Monocytes # 0.4 (0-1.0) k/uL Eosinophils # 0.3 (0-0.7) k/uL Basophils # 0.0 (0-0.2) k/uL Hypochromasia Marked Anisocytosis Slight Microcytosis Marked Sodium 138 (137-145) mmol/L Potassium 3.6 (3.5-5.1) mmol/L Chloride 105 (98-107) mmol/L Carbon Dioxide 26 (22-30) mmol/L Anion Gap 7 mmol/L BUN 11 (7-17) mg/dL Creatinine 0.40 L (0.52-1.04) mg/dL Est GFR (CKD-EPI)AfAm >90 (>60 ml/min/1.73 sqM) Est GFR (CKD-EPI)NonAf >90 (>60 ml/min/1.73 sqM) Glucose 264 H (74-99) mg/dL Plasma Lactic Acid Nirav 1.7 (0.7-2.0) mmol/L Calcium 8.7 (8.4-10.2) mg/dL Total Bilirubin 0.7 (0.2-1.3) mg/dL AST 21 (14-36) U/L ALT 15 (4-34) U/L Alkaline Phosphatase 92 (38-126) U/L Total Protein 6.9 (6.3-8.2) g/dL Albumin 3.7 (3.5-5.0) g/dL Amylase 53 (30-110) U/L Lipase 29 (23-300) U/L Urine Color Urine Appearance (Clear) Urine pH (5.0-8.0) Ur Specific [place] (1.001-1.035) Urine Protein (Negative) Urine Glucose (UA) (Negative) Urine Ketones (Negative) Urine Blood (Negative) Urine Nitrite (Negative) Urine Bilirubin (Negative) Urine Urobilinogen (<2.0) mg/dL Ur Leukocyte Esterase (Negative) Urine RBC (0-5) /hpf Urine WBC (0-5) /hpf Ur Squamous Epith Cells (0-4) /hpf Urine Bacteria (None) /hpf Hyaline Casts (0-2) /lpf Urine Mucus (None) /hpf 01/07/22 Range/Units 10:35 WBC (3.8-10.6) k/uL RBC (3.80-5.40) m/uL Hgb (11.4-16.0) gm/dL Hct (34.0-46.0) % MCV (80.0-100.0) fL MCH (25.0-35.0) pg MCHC (31.0-37.0) g/dL RDW (11.5-15.5) % Plt Count (150-450) k/uL MPV Neutrophils % % Lymphocytes % % Monocytes % % Eosinophils % % Basophils % % Neutrophils # (1.3-7.7) k/uL Lymphocytes # (1.0-4.8) k/uL Monocytes # (0-1.0) k/uL Eosinophils # (0-0.7) k/uL Basophils # (0-0.2) k/uL Hypochromasia Anisocytosis Microcytosis Sodium (137-145) mmol/L Potassium (3.5-5.1) mmol/L Chloride (98-107) mmol/L Carbon Dioxide (22-30) mmol/L Anion Gap mmol/L BUN (7-17) mg/dL Creatinine (0.52-1.04) mg/dL Est GFR (CKD-EPI)AfAm (>60 ml/min/1.73 sqM) Est GFR (CKD-EPI)NonAf (>60 ml/min/1.73 sqM) Glucose (74-99) mg/dL Plasma Lactic Acid Nirav (0.7-2.0) mmol/L Calcium (8.4-10.2) mg/dL Total Bilirubin (0.2-1.3) mg/dL AST (14-36) U/L ALT (4-34) U/L Alkaline Phosphatase (38-126) U/L Total Protein (6.3-8.2) g/dL Albumin (3.5-5.0) g/dL Amylase (30-110) U/L Lipase (23-300) U/L Urine Color Yellow Urine Appearance Cloudy H (Clear) Urine pH 5.5 (5.0-8.0) Ur Specific [place] 1.027 (1.001-1.035) Urine Protein Trace H (Negative) Urine Glucose (UA) 4+ H (Negative) Urine Ketones 1+ H (Negative) Urine Blood Negative (Negative) Urine Nitrite Negative (Negative) Urine Bilirubin Negative (Negative) Urine Urobilinogen <2.0 (<2.0) mg/dL Ur Leukocyte Esterase Moderate H (Negative) Urine RBC 5 (0-5) /hpf Urine WBC 45 H (0-5) /hpf Ur Squamous Epith Cells 4 (0-4) /hpf Urine Bacteria Rare H (None) /hpf Hyaline Casts 1 (0-2) /lpf Urine Mucus Rare H (None) /hpf Disposition Clinical Impression: UTI (urinary tract infection), Diarrhea Disposition: HOME SELF-CARE Condition: Stable Instructions (If sedation given, give patient instructions): Acute Diarrhea (ED), Urinary Tract Infection in Women (ED) Additional Instructions: Please return to the Emergency Department if symptoms worsen or any other concerns. Prescriptions: Ciprofloxacin HCl [Cipro] 500 mg PO Q12HR #14 tablet Is patient prescribed a controlled substance at d/c from ED?: No Referrals: Jimmie Gutiérrez MD [Primary Care Provider] - 1-2 days Time of Disposition: 12:33
[2022-01-07 10:51] LABS: Appearance,Urine Cloudy (Clear); Bacteria,Urine Rare /hpf; Bilirubin,Urine Negative (Negative); Blood,Urine Negative (Negative); Color,Urine Yellow; Glucose,Urine (UA) 4+ (Negative); Hyaline Casts,Urine 1 /lpf (0-2); Ketones,Urine 1+ (Negative); Leukocyte Esterase,Urine Moderate (Negative); Mucus,Urine Rare /hpf; Nitrite,Urine Negative (Negative); PH, Urine 5.5 (5.0-8.0); Protein,Urine Trace (Negative); RBC,Urine 5 /hpf (0-5); Specific Gravity,Urine 1.027 (1.001-1.035); Squamous Epithelial Cell,Urine 4 /hpf (0-4); Urobilinogen,Urine <2.0 mg/dL (<2.0); WBC,Urine 45 /hpf (0-5)
--- NOTE | 2022-01-07 10:54 | CT ---
EXAMINATION TYPE: CT abdomen pelvis w con DATE OF EXAM: 01/07/2022 COMPARISON: 10/17/2017 CT, ultrasound 02/04/2021 INDICATION: right sided abdominal pain DLP: 1755.8 mGycm, Automated exposure control for dose reduction was used. CONTRAST: 70cc mL of Isovue 300. Study performed without Oral Contrast TECHNIQUE: Axial images were obtained from above the diaphragm to the pubic rami in the axial plane a t 5 mm thick sections. Reconstructed images are reviewed on the computer in the coronal plane. FINDINGS: Limited CT sections are obtained the lung bases. The lung bases are clear. CT ABDOMEN: Liver: Normal Spleen: Normal. 11Splenule is at the splenic hilum. Pancreas: Normal Adrenal glands: The adrenal glands are normal. Gallbladder: Not visualized. Kidneys: No masses are evident. No hydronephrosis is present. No cysts are present. On delayed gertrudis ges a complex cyst or solid lesion may be better visualized measuring 2.2 cm lateral left kidney. Fol low-up is recommended with ultrasound. Neoplasm is not excluded. Aorta: Normal Inferior vena cava: Normal. CT PELVIS: Loops of bowel within the abdomen and pelvis are normal. This study is without oral contrast limi ting bowel evaluation. Appendix: Normal as visualized. No inflammatory changes or dilated tubular structure evident. Urinary bladder: Decompressed and cannot be evaluated. Genitourinary structures: Uterus is prominent. There is some thickening through the endometrium. Pelv ic ultrasound can further evaluate the uterus appears somewhat bulky. Adnexa appear normal. Osseous structures: No suspicious lytic or sclerotic lesions. Scoliosis through the lumbar spine. Vac uum disc phenomenon is present L5-S1. IMPRESSIONS: 1. No suspicious abnormality account for right-sided abdomen pain. The appendix appears normal. 2. Complex 2.2 cm cyst or isodense mass mid lateral left kidney. Additional workup with ultrasound is recommended. Neoplasm is not excluded.
--- NOTE | 2022-01-07 12:23 | US ---
EXAMINATION TYPE: US renals and bladder DATE OF EXAM: 01/07/2022 COMPARISON: US 02/04/21,CT 01/07/22 CLINICAL HISTORY: abnormal Ct of kidney. Abnormal CT, RLQ pain EXAM MEASUREMENTS: Right Kidney: 12.7 x 6.6 x 6.8cm Left Kidney: 13.6 x 5.7 x 6.9cm Right Kidney: No hydronephrosis seen, cystic area seen in mid pelvic area measuring 1.5 x 1.3 x 1.3cm Left Kidney: No hydronephrosis seen, Inferior pole obscured by bowel gas unable to identify questiona ble area seen on CT Bladder: Not fully distended Bilateral Jets seen: No There is no evidence for hydronephrosis at this point in time. No nephrolithiasis is seen. No solid masses are identified. The urinary bladder is anechoic. Bilateral ureteral jets are seen. IMPRESSION: Simple cyst right kidney
[2022-01-07] MEDS ORDERED: ACET/COD 300 MG/30 MG STARTER PACK 6 TAB BTL PO STA (12:29)
== END 2022-01-07 12:58 | disposition home or self-care (01) ==
LOC: EC 09:01
DX: N39.0 Urinary tract infection, site not specified (principal); R19.7 Diarrhea, unspecified; E11.9 Type 2 diabetes mellitus without complications; I10 Essential (primary) hypertension; Z87.891 Personal history of nicotine dependence
CPT/HCPCS: 36415; 80053; 82150; 83605; 83690; 85025; 81001; 87086; 76770; 74177; 99284; 96374; 96375; 96361; J2405; J1885; Q9967

== ENCOUNTER 2023-07-12 18:40 | Emergency (ER) | payer OTHER ==
[2023-07-12 19:19] LABS: Anisocytosis Slight; Basophils % (A) 1 %; Eosinophils # (A) 0.6 k/uL (0-0.7); Eosinophils % (A) 8 %; HCT 37.1 % (34.0-46.0); HGB 11.2 gm/dL (11.4-16.0); Hypochromasia Marked; Lymphocytes # (A) 2.1 k/uL (1.0-4.8); Lymphocytes % (A) 27 %; MCH 20.2 pg (25.0-35.0); MCHC 30.2 g/dL (31.0-37.0); MCV 66.8 fL (80.0-100.0); Mean Platelet Volume 7.9; Microcytosis Marked; Monocytes # (A) 0.5 k/uL (0-1.0); Monocytes % (A) 6 %; Neutrophils # (A) 4.4 k/uL (1.3-7.7); Neutrophils % (A) 57 %; Platelet Count 213 k/uL (150-450); RBC 5.56 m/uL (3.80-5.40); RDW 17.9 % (11.5-15.5); WBC 7.8 k/uL (3.8-10.6)
[2023-07-12 19:26] LABS: INR 0.9 (<1.2); Partial Thromboplastin Time 23.7 sec (22.0-30.0)
[2023-07-12 19:28] LABS: ALT 34 U/L (4-34); AST 43 U/L (14-36); African American GFR (CKD) >90 (>60 ml/min/1.73 sqM); Albumin 3.7 g/dL (3.5-5.0); Alkaline Phosphatase 113 U/L (38-126); Anion Gap 12 mmol/L; Blood Urea Nitrogen 7 mg/dL (7-17); Calcium 9.2 mg/dL (8.4-10.2); Carbon Dioxide 24 mmol/L (22-30); Chloride 102 mmol/L (98-107); Glucose 309 mg/dL (74-99); Magnesium 1.5 mg/dL (1.6-2.3); Non-African American GFR(CKD) >90 (>60 ml/min/1.73 sqM); Potassium 3.6 mmol/L (3.5-5.1); Sodium 138 mmol/L (137-145); Total Bilirubin 0.6 mg/dL (0.2-1.3); Total Protein 7.2 g/dL (6.3-8.2)
--- NOTE | 2023-07-12 20:27 | XR ---
EXAMINATION TYPE: XR chest 2V DATE OF EXAM: 07/12/2023 8:02 PM CLINICAL INDICATION:Female, 48 years old with history of Chest Pain; COMPARISON: 09/07/2021. TECHNIQUE: XR chest 2V Frontal and lateral views of the chest. FINDINGS: Lungs/Pleura: There is no evidence of pleural effusion, focal consolidation, or pneumothorax. Pulmonary vascularity: Unremarkable. Heart/mediastinum: Cardiomediastinal silhouette is unremarkable. Musculoskeletal: No acute osseous pathology. Other findings: None IMPRESSION: No acute cardiopulmonary disease/process.
[2023-07-12] MEDS ORDERED: INSULIN REGULAR 100 UNIT/ML VIAL (IV) SQ STA (23:42)
--- NOTE | 2023-07-12 23:42 | ED ---
Chest Pain HPI - General Chief Complaint: Chest Pain Stated Complaint: Chest Pain,L Breast extra warm Time Seen by Provider: 07/12/23 23:23 Source: patient Mode of arrival: ambulatory Limitations: no limitations - History of Present Illness Complaint: chest pain Onset/Timin -: month(s) Onset: during rest Pain Location: left chest, right chest Pain Radiation: none Severity: moderate Quality: aching Consistency: intermittent Improves With: nothing Worsens With: nothing Treatments Prior to Arrival: none - Related Data Home Medications Medication Instructions Recorded Confirmed Ibuprofen [Motrin] 800 mg PO BID PRN 01/07/22 01/07/22 Previous Rx's Medication Instructions Recorded Ciprofloxacin HCl [Cipro] 500 mg PO Q12HR #14 tablet 01/07/22 Azithromycin [Zithromax] 0 mg PO DIRECTED #6 tab 07/13/23 Allergies Allergy/AdvReac Type Severity Reaction Status Date / Time No Known Allergies Allergy Verified 03/27/22 17:55 Review of Systems ROS Statement: Those systems with pertinent positive or pertinent negative responses have been documented in the HPI. ROS Other: All systems not noted in ROS Statement are negative. Constitutional: Denies: fever, chills Respiratory: Denies: cough, dyspnea Cardiovascular: Reports: chest pain. Denies: palpitations, orthopnea, edema, syncope Gastrointestinal: Denies: abdominal pain, nausea, vomiting, diarrhea Genitourinary: Denies: dysuria, hematuria Musculoskeletal: Reports: back pain Skin: Denies: rash Neurological: Denies: headache, weakness EKG Findings - EKG Results: EKG: interpreted by ERMD, sinus rhythm (Rate 80 bpm), normal axis, normal ST/T - Blocks, [place], Hypertrophy, ST Abn: QRS axis and voltage: low voltage (<0.5 MV total QRS and <1.0 MV in each precordial lead) Past Medical History Past Medical History: Diabetes Mellitus, Hypertension, Musculoskeletal Disorder, Osteoarthritis (OA) Additional Past Medical History / Comment(s): ANEMIA, SCOLIOSIS, NO DM RX AT THIS TIME, NO HTN RX, HEAVY MENSES History of Any Multi-Drug Resistant Organisms: None Reported Past Surgical History: Appendectomy, Section, Cholecystectomy, Orthopedic Surgery, Tonsillectomy, Tubal Ligation Additional Past Surgical History / Comment(s): bilateral carpal tunnel surgery, EGD Past Anesthesia/Blood Transfusion Reactions: No Reported Reaction Past Psychological History: No Psychological Hx Reported Smoking Status: Former smoker Past Alcohol Use History: Occasional Past Drug Use History: None Reported - Past Family History Father Family Medical History: CVA/TIA, Diabetes Mellitus Mother Family Medical History: No Reported History General Exam Limitations: no limitations General appearance: alert, in no apparent distress Head exam: Present: atraumatic, normocephalic Eye exam: Present: normal appearance. Absent: scleral icterus, conjunctival injection ENT exam: Present: normal oropharynx Neck exam: Present: normal inspection Respiratory exam: Present: normal lung sounds bilaterally. Absent: respiratory distress, wheezes, rales, rhonchi, stridor, accessory muscle use Cardiovascular Exam: Present: regular rate, normal rhythm, normal heart sounds. Absent: systolic murmur, diastolic murmur, rubs, gallop GI/Abdominal exam: Present: soft. Absent: distended, tenderness, guarding, rebound, rigid, mass Extremities exam: Present: normal inspection, normal capillary refill. Absent: pedal edema, calf tenderness Back exam: Present: normal inspection. Absent: CVA tenderness (R), CVA tenderness (L) Neurological exam: Present: alert Skin exam: Present: warm, dry, intact, normal color. Absent: rash Course Vital Signs 07/12/23 07/12/23 07/13/23 18:52 23:58 02:07 Pulse Rate 84 77 79 Respiratory 16 18 20 Rate Blood Pressure 143/88 114/72 118/80 O2 Sat by Pulse 97 98 99 Oximetry 07/13/23 03:47 Pulse Rate 105 H Respiratory 30 H Rate Blood Pressure 152/78 O2 Sat by Pulse 100 Oximetry Chest Pain MDM - MDM The patient had chest x-ray I interpreted as negative for acute infiltrate, congestive heart failure, pneumothorax. The patient had computed tomography scan of the chest which I interpreted as negative for acute pulmonary embolism. Was pt. sent in by a medical professional or institution (, PA, RAILROAD BRAKE REPAIRER, urgent care, hospital, or long term...) When possible be specific @ -[No] Did you speak to anyone other than the patient for history (EMS, parent, family, police, friend...)? What history was obtained from this source @ -[No] Did you review nursing and triage notes (agree or disagree)? Why? @ -[I reviewed and agree with nursing and triage notes] Were old charts reviewed (outside hosp., previous admission, EMS record, old EKG, old radiological studies, urgent care reports/EKG's, long term records)? Report findings @ -[No old charts were reviewed] Differential Diagnosis (chest pain, altered mental status, abdominal pain women, abdominal pain men, vaginal bleeding, weakness, fever, dyspnea, syncope, headache, dizziness, GI bleed, back pain, seizure, CVA, palpatations, mental health, musculoskeletal)? @ -[Differential Chest Pain: Stable Angina, Unstable Angina, STEMI, NSTEMI Aortic Dissection, Pneumothorax, Musculoskeletal, Esophageal Spasm GERD, Cholecystitis, Pancreatitis, Zoster, this is not meant to be an all-inclusive list. EKG interpreted by me (3pts min.). @ -[I interpreted As above] X-rays interpreted by me (1pt min.). @ -[I interpreted as above CT interpreted by me (1pt min.). @ -I interpreted as above U/S interpreted by me (1pt. min.). @ -[None done] What testing was considered but not performed or refused? (CT, X-rays, U/S, labs)? Why? @ -[None] What meds were considered but not given or refused? Why? @ -[None] Did you discuss the management of the patient with other professionals (pr ofessionals i.e. , PA, RAILROAD BRAKE REPAIRER, lab, RT, psych nurse, social media marketing specialist, supervisor shuttle preparation, teacher, civil preparedness training officer, transplant case manager)? Give summary @ -[No] Was smoking cessation discussed for >3mins.? @ -[No] Was critical care preformed (if so, how long)? @ -[No] Were there social determinants of health that impacted care today? How? (Homelessness, low income, unemployed, alcoholism, drug addiction, transportation, low edu. Level, literacy, decrease access to med. care, intermediate, rehab)? @ -[No] Was there de-escalation of care discussed even if they declined (Discuss DNR or withdrawal of care, Hospice)? DNR status @ -[No] What co-morbidities impacted this encounter? (DM, HTN, Smoking, COPD, CAD, Cancer, CVA, ARF, Chemo, Hep., AIDS, mental health diagnosis, sleep apnea, morbid obesity)? @ -[None] Was patient admitted / discharged? Hospital course, mention meds given and route, prescriptions, significant lab abnormalities, going to OR and other pertinent info. @ -[Patient is 48-year-old woman with intermittent chest pain going back a month. The workup unremarkable other than subacute rib fracture. Discussed appropriate further care and follow-up as well as return parameters. Undiagnosed new problem with uncertain prognosis? @ -[No] Drug Therapy requiring intensive monitoring for toxicity (Heparin, Nitro, Insulin, Cardizem)? @ -[No] Were any procedures done? @ -[No] Diagnosis/symptom? @ -[Acute chest pain Subacute rib fracture Acute, or Chronic, or Acute on Chronic? @ -[default] Uncomplicated (without systemic symptoms) or Complicated (systemic symptoms)? @ -[Uncomplicated Side effects of treatment? @ -[No] Exacerbation, Progression, or Severe Exacerbation? @ -[No] Poses a threat to life or bodily function? How? (Chest pain, [place], [place], pneumonia, PE, COPD, DKA, ARF, appy, cholecystitis, CVA, Diverticulitis, Homicidal, Suicidal, threat to staff... and all critical care pts) @ -[No] Disposition Clinical Impression: Chest pain Disposition: HOME SELF-CARE Condition: Good Instructions (If sedation given, give patient instructions): Chest Pain (ED) Prescriptions: Azithromycin [Zithromax] 0 mg PO DIRECTED #6 tab Is patient prescribed a controlled substance at d/c from ED?: No Referrals: Janie Becerril MD [Primary Care Provider] - 1-2 days Dutch Newberry MD [STAFF PHYSICIAN] - 1-2 days
[2023-07-13] MEDS ORDERED: HYDROcodone/APAP 5-325MG 1 EACH TAB PO STA (01:56)
--- NOTE | 2023-07-13 02:10 | CT ---
EXAM: CT Angiography Chest With Intravenous Contrast CLINICAL HISTORY: ITS.REASON CT Reason: chest pain, possible PE TECHNIQUE: Axial computed tomographic angiography images of the chest with intravenous contrast. CTDI is 22.3 mGy and DLP is 602.1 mGy-cm. This CT exam was performed using one or more of the following dose reduction techniques: automated exposure control, adjustment of the mA and/or kV according to patient size, and/or use of iterative reconstruction technique. MIP reconstructed images were created and reviewed. COMPARISON: CTA Chest dated 09/07/2016 FINDINGS: Artifacts: Some breathing motion artifact limiting evaluation of the peripheral arteries. Pulmonary arteries: Unremarkable. No pulmonary embolism. Aorta: No acute findings. No thoracic aortic aneurysm. Lungs: Patchy groundglass opacities in the medial left upper lobe and posteromedial bilateral lower lobes. Pleural space: Unremarkable. No significant effusion. No pneumothorax. Heart: Unremarkable. No cardiomegaly. No significant pericardial effusion. No evidence of RV dysfunction. Bones/joints: Nonacute left second anterior rib fracture with some callus. New since prior. No dislocation. Soft tissues: Unremarkable. Lymph nodes: Unremarkable. No enlarged lymph nodes. Gallbladder and bile ducts: Absent gallbladder. IMPRESSION: 1. Some breathing motion artifact limiting evaluation of the peripheral arteries. No evidence of pulmonary embolism. 2. Patchy groundglass opacities in the medial left upper lobe and posteromedial bilateral lower lobes. May represent atelectasis or infectious/inflammatory process. 3. Nonacute left second anterior rib fracture with some callus. New since prior.
[2023-07-13 02:12] LABS: Glucose,Whole Blood 207 mg/dL (70-110)
[2023-07-13 04:03] VITALS: BP 152/78; PULSE 105; RESP 30
== END 2023-07-13 04:13 | disposition home or self-care (01) ==
LOC: EC 18:40
DX: S22.32XA Fracture of one rib, left side, initial encounter for closed fracture (principal); E11.9 Type 2 diabetes mellitus without complications; I10 Essential (primary) hypertension; M19.90 Unspecified osteoarthritis, unspecified site; Z87.891 Personal history of nicotine dependence; Z79.1 Long term (current) use of non-steroidal anti-inflammatories (NSAID); X58.XXXA Exposure to other specified factors, initial encounter
CPT/HCPCS: 99285 ×2; 36415 ×2; 93005; 85379; 80053; 83735; 84484; 85025; 85610; 85730; 71046; 71275; Q9967

== ENCOUNTER → 2023-08-11 | Outpatient (CLI) | payer OTHER ==
--- NOTE | 2023-08-11 07:45 | MM ---
Reason for Exam: Clinical finding. Last mammogram was performed 6 year(s) and 9 month(s) ago. Indicated Problems: Pain of the left side for 1 Month(s). Patient History: Menarche at age 10. First Full-Term at age 16. Maternal cousin had breast cancer, age 39. Maternal aunt had breast cancer, age 56. Last menstrual period: 07/26/2023 Risk Values: Amanda 5 year model risk: 0.7%. NCI Lifetime model risk: 6.5%. Prior Study Comparison: 05/28/2014 Bilateral Diagnostic Mammogram, [facility]. 05/02/2015 Bilateral Diagnostic Mammogram, [facility]. 11/03/2016 Bilateral Screening Mammogram, [facility]. Tissue Density: The breast tissue is heterogeneously dense. This may lower the sensitivity of mammography. Findings: Analyzed By CAD. No distinct mass or distortion. No suspicious calcifications. Ultrasound left breast recommended. Clinical correlation advised. Overall Assessment: Incomplete: need additional imaging evaluation, BI-RAD 0 Management: Diagnostic Breast Ultrasound of the left breast. . Results were given to the patient verbally at the time of exam. Patient should continue monthly self-breast exams. A clinical breast exam by your physician is recommended on an annual basis. This exam should not preclude additional follow-up of suspicious palpable abnormalities. Note on Amanda scores and lifetime risk: 1. A Amanda score greater than 3% is considered moderate risk. If this is the case, consider specialist referral to assess eligibility for a risk reducing agent. 2. If overall lifetime risk for the development of breast cancer is 20% or higher, the patient may qualify for future screening with alternating mammogram and breast MRI. Electronically signed and approved by: Mario Medina M.D. Radiologis
--- NOTE | 2023-08-11 08:07 | USB ---
Indicated Problems: Pain of the left side (Global) for 2 Month(s) : whole breast. Patient History: Menarche at age 10. First Full-Term at age 16. Maternal cousin had breast cancer, age 39. Maternal aunt had breast cancer, age 56. Risk Values: Amanda 5 year model risk: 0.7%. NCI Lifetime model risk: 6.5%. Technique: Method: Whole Breast Handheld. Doppler: Color. Patient Position: RPO. Prior Study Comparison: 05/28/2014 Bilateral Diagnostic Mammogram, [facility]. 05/02/2015 Bilateral Diagnostic Mammogram, [facility]. 11/03/2016 Bilateral Screening Mammogram, [facility]. Findings: The whole breast of the left breast, the axilla of the left breast and the retroareolar of the left breast were scanned. No solid or cystic masses are identified. There is a prominent left axillary lymph node measuring 4.9 x 2.6 x 1.2 cm. Correlate clinically. Six-month follow-up is recommended.. Overall Assessment: Probably benign, BI-RAD 3 Management: Diagnostic Breast Ultrasound of the left breast in 6 months. A clinical breast exam by your physician is recommended on an annual basis and results should be correlated with mammographic findings. This exam should not preclude additional follow-up of suspicious palpable abnormalities. Results were given to the patient verbally at the time of exam. Electronically signed and approved by: Mario Medina M.D. Radiologis
== END | disposition home or self-care (01) ==
LOC: RADMAMWWP 07:24
PROVIDERS: ATTEND Family Medicine
DX: N64.4 Mastodynia (principal); Z80.3 Family history of malignant neoplasm of breast
CPT/HCPCS: 77066; 76641; G0279; 77062

== ENCOUNTER → 2023-09-29 | Outpatient (CLI) | payer OTHER ==
[2023-09-29 15:30] VITALS: BP 134/86; PULSE 84; RESP 15; TEMP 97.6
--- NOTE | 2023-09-29 15:31 | P.GSHP ---
History of Present Illness H&P Date: 09/29/23 Chief Complaint: breast pain Naomi is a 48 year old female seen in consultation for Dr. Cesar regarding breast pain. She had a bilateral mammogram on 08-11-23 which was BIRAD 0, this led to a left breast ultrasound which showed a 4.9 CM node in the left axilla. No lesions of concern noted in the left breast. BIRAD 3, repeat 6 month left breast/axilla ultrasound. The pain has been for about three months. It is located in the lateral aspect of the left breast. It spreads to the central breast at times. It is worse with movement or palpation. There is no nipple discharge or skin changes. There has been no trauma or infection of the breast. She has not had any surgery on her breast. The pain is not cyclical in nature. Her last period 2 months ago. Caffeine: 2 energy drinks twice a week nicotine: none, no second hand smoke chocolate: occasional BCP: none hormones: none Family History: Maternal cousin: Breast cancer Maternal grandfather: Colon cancer Hormonal history: Menarche: 9 , P:4, breast fed: no, age at first : 15 Perimenopausal now Surgical history: 4 C-sections Appendectomy Left foot surgery Tonsillectomy Medical history: H pylori in the past diabetes type 2 scoloisis arthritis Social History: nicotine: none alcohol: occasional drugs: none - Constitutional Constitutional: Denies chills, Denies fever - EENT Eyes: denies blurred vision, denies pain Ears: deny: decreased hearing, tinnitus Ears, nose, mouth and throat: Denies headache, Denies sore throat - Breasts Breasts: bilateral: as per HPI - Cardiovascular Cardiovascular: Denies chest pain, Denies shortness of breath - Respiratory Respiratory: Reports cough - Gastrointestinal Gastrointestinal: Reports as per HPI - Genitourinary (Female) Genitourinary: Denies dysuria, Denies hematuria - Menstruation Menstruation: Reports cycle variable - Musculoskeletal Musculoskeletal: Reports myalgias - Integumentary Integumentary: Reports pruritus - Neurological Neurological: Denies numbness, Denies weakness - Psychiatric Psychiatric: Reports anxiety, Denies depression - Endocrine Endocrine: Reports fatigue, Reports weight change - Hematologic/Lymphatic Comment: none - Allergic/Immunologic Allergic/Immunologic: Reports as per HPI Past Medical History Past Medical History: Diabetes Mellitus, Hypertension, Musculoskeletal Disorder, Osteoarthritis (OA) Additional Past Medical History / Comment(s): ANEMIA, SCOLIOSIS, NO DM RX AT THIS TIME, NO HTN RX, HEAVY MENSES History of Any Multi-Drug Resistant Organisms: None Reported Past Surgical History: Appendectomy, Section, Cholecystectomy, Orthopedic Surgery, Tonsillectomy, Tubal Ligation Additional Past Surgical History / Comment(s): bilateral carpal tunnel surgery, EGD Past Anesthesia/Blood Transfusion Reactions: No Reported Reaction Past Psychological History: No Psychological Hx Reported Smoking Status: Former smoker Past Alcohol Use History: Occasional Past Drug Use History: None Reported - Past Family History Father Family Medical History: CVA/TIA, Diabetes Mellitus Mother Family Medical History: No Reported History Medications and Allergies Home Medications Medication Instructions Recorded Confirmed Type Ciprofloxacin HCl [Cipro] 500 mg PO Q12HR #14 tablet 01/07/22 09/29/23 Rx Ibuprofen [Motrin] 800 mg PO BID PRN 01/07/22 09/29/23 History Azithromycin [Zithromax] 0 mg PO DIRECTED #6 tab 07/13/23 09/29/23 Rx Allergies Allergy/AdvReac Type Severity Reaction Status Date / Time No Known Allergies Allergy Verified 09/29/23 15:09 Surgical - Exam - General no distress - Eyes normal ocular movement - Neck trachea midline - Respiratory normal respiratory effort, clear to auscultation - Cardiovascular Rhythm: regular Heart Sounds: normal: S1, S2 - Abdomen Abdomen: soft, non tender, no guarding, no rigid, no rebound - Integumentary normal turgor - Neurologic no disoriented, no combative - Musculoskeletal normal gait, normal posture - Psychiatric oriented to time, oriented to person, oriented to place, speech is normal, memory intact Breast Exam: BRA: 38D Inspection: Bilateral grade 3 ptosis, left breast larger than right breast Palpation: Right breast: Multi positional exam fibrocystic changes no dominant masses or nodules of concern Right axilla: No adenopathy of concern Left breast: Multi positional exam slightly larger than right breast, dense breast tissue but no dominant masses or nodules of concern fibrocystic changes Left axilla: Shotty adenopathy nothing of concern Results Mammogram and ultrasound results reviewed Assessment and Plan Assessment: Impression: Mastodynia Patient is perimenopausal Plan: Lifestyle modification Avoid caffeine Weight reduction Probable pain related to hormonal changes as patient is perimenopausal Repeat left breast mammogram and ultrasound in 6 months with examination at that time Patient was noted to have an enlarged lymph node in the left axilla and this will be reviewed with the radiologist CC: Dr. Mylene Gutiérrez
== END | disposition home or self-care (01) ==
LOC: WWCWWP 14:10
PROVIDERS: ATTEND Surgery
DX: N64.4 Mastodynia (principal)

== ENCOUNTER → 2023-12-21 | Outpatient (CLI) | payer OTHER | END | disposition home or self-care (01) | LOC: LABWHC1 10:50 | PROVIDERS: ATTEND Podiatrist | DX: E44.1 Mild protein-calorie malnutrition (principal) | CPT/HCPCS: 36415; 84134 ==

== ENCOUNTER → 2023-12-27 | Outpatient (CLI) | payer OTHER ==
--- NOTE | 2023-12-27 16:03 | US ---
EXAMINATION TYPE: US venous doppler duplex LE DATE OF EXAM: 12/27/2023 3:18 PM COMPARISON: NONE CLINICAL INDICATION: Female, 48 years old with history of M79.605 PAIN IN LEFT LEG; Pain left leg. Le foot surgery February 2023 SIDE PERFORMED: left TECHNIQUE: The lower extremity deep venous system is examined utilizing real time linear array sonog sierra with graded compression, doppler sonography and color-flow sonography. VESSELS IMAGED: Common Femoral Vein Deep Femoral Vein Greater Saphenous Vein * Femoral Vein Popliteal Vein Small Saphenous Vein * Proximal Calf Veins (* superficial vessels) Left Leg: No evidence of DVT IMPRESSION: Grayscale, color doppler, spectral doppler imaging performed of the deep veins of the lo wer extremities. There is normal flow, compressibility, vascular waveforms.
== END | disposition home or self-care (01) ==
LOC: RADUSWWP 14:50
PROVIDERS: ATTEND Family Medicine
DX: M79.605 Pain in left leg (principal)

== ENCOUNTER 2024-02-14 06:00 | Day surgery (SDC) | payer OTHER ==
[2024-02-14] MEDS ORDERED: LACTATED RINGERS 1,000 ML BAG ONE (07:43)
[2024-02-14] MEDS ORDERED: PROPOFOL 10 MG/ML 20 ML VIAL IV ONE (07:55)
--- NOTE | 2024-02-24 15:52 | OP ---
OPERATIVE REPORT DATE OF SERVICE : 02/14/2024 REQUESTING PHYSICIAN: Janie Becerril. BRIEF HISTORY: The patient is a 48-year-old pleasant female, scheduled for an upper endoscopy as well as colonoscopy as a part of evaluation of iron deficiency anemia. She denies any GI symptoms. PROCEDURE PERFORMED: 1. Esophagogastroduodenoscopy with biopsy. 2. Colonoscopy. PREOPERATIVE DIAGNOSIS: Iron deficiency anemia. ANESTHESIA: IV sedation per Anesthesia. DESCRIPTION OF PROCEDURE: After informed consent was obtained from the patient, she was brought into the Endoscopy Unit. IV conscious sedation was administered by Anesthesia on continuous monitoring initially. Upper endoscopy was done. The Olympus GF180 video endoscope was inserted into the mouth, esophagus, intubated without any difficulty and was gradually advanced into the stomach and duodenum. I carefully examined and bulb and 2nd part of duodenum appeared normal. Biopsies were done from the duodenum to evaluate for celiac disease. Scope was then withdrawn to the stomach, adequately insufflated with air and upon careful examination, mucosa of antrum and mild diffuse gastritis and biopsies were done from this area. Body of the stomach appeared normal and in retroflexion, cardia and fundus appeared normal. Scope was then withdrawn to the esophagus. GE junction was located at 40 cm from the incisors. It appeared regular with no edema, erosions, or ulcerations. Entire length of the esophagus appeared normal. The patient tolerated the procedure well. She continued to remain sedated. At this time, a colonoscopy was done. Digital rectal examination was normal. Olympus GF190 video colonoscope was then inserted into the rectum, gradually advanced into the cecum. Careful examination was performed as the scope was gradually being withdrawn. Prep was excellent. Cecum, ascending colon, transverse colon, descending colon, sigmoid colon, and rectum appeared normal. In the rectum, retroflexion was performed. No lesions were noted. The patient tolerated the procedure well. IMPRESSION: 1. Upper endoscopy revealed mild antral gastritis. 2. No evidence of esophagitis or peptic ulcer disease. 3. Colonoscopy was within normal limits with no evidence of colorectal neoplasia. RECOMMENDATIONS: Findings of this examination were discussed with the patient as well as the family, she was advised to follow up with the biopsy results. Continue with iron supplements. Recommend a repeat colonoscopy in 10 years. MMODL / IJN: [id number] /
== END 2024-02-14 09:20 ==
LOC: ORWHC2ENDO 06:00
PROVIDERS: ATTEND Internal Medicine Gastroenterology
DX: D72.820 Lymphocytosis (symptomatic) (principal); K29.50 Unspecified chronic gastritis without bleeding; E11.9 Type 2 diabetes mellitus without complications; M19.90 Unspecified osteoarthritis, unspecified site; K21.9 Gastro-esophageal reflux disease without esophagitis; E66.01 Morbid (severe) obesity due to excess calories; Z79.84 Long term (current) use of oral hypoglycemic drugs; Z79.899 Other long term (current) drug therapy; Z68.41 Body mass index [BMI] 40.0-44.9, adult
CPT/HCPCS: 43239; 45378; 81025; 88305

== ENCOUNTER → 2024-02-21 | Outpatient (CLI) | payer OTHER | END | disposition home or self-care (01) | LOC: LABWHC1 15:05 | DX: K58.0 Irritable bowel syndrome with diarrhea (principal) | CPT/HCPCS: 36415; 83516 ==

== ENCOUNTER → 2024-03-09 | Outpatient (CLI) | payer OTHER ==
--- NOTE | 2024-03-09 11:44 | MM ---
Reason for Exam: Follow-up at short interval from prior study. Last screening mammogram was performed 7 month(s) ago. Patient History: Menarche at age 10. First Full-Term at age 16. Maternal cousin had breast cancer, age 39. Maternal aunt had breast cancer, age 56. Risk Values: Amanda 5 year model risk: 0.7%. NCI Lifetime model risk: 6.5%. Prior Study Comparison: 05/02/2015 Bilateral Diagnostic Mammogram, [facility]. 11/03/2016 Bilateral Screening Mammogram, [facility]. 08/11/2023 Bilateral MG 3D diag mammo w/cad LUCILA, [facility]. Tissue Density: Left: There are scattered areas of fibroglandular density. Findings: Analyzed By CAD. No significant change from prior exams. Overall Assessment: Incomplete: need additional imaging evaluation, BI-RAD 0 Management: Diagnostic Breast Ultrasound of the left breast. Electronically signed and approved by: Gera Malagon M.D. Radiologist
--- NOTE | 2024-03-09 12:07 | USB ---
Reason for Exam: Follow-up at short interval from prior study. Patient History: Menarche at age 10. First Full-Term at age 16. Maternal cousin had breast cancer, age 39. Maternal aunt had breast cancer, age 56. Risk Values: Amanda 5 year model risk: 0.7%. NCI Lifetime model risk: 6.5%. Technique: Method: Targeted. Prior Study Comparison: 05/02/2015 Bilateral Diagnostic Mammogram, [facility]. 11/03/2016 Bilateral Screening Mammogram, [facility]. 08/11/2023 Bilateral MG 3D diag mammo w/cad LUCILA, [facility]. Findings: The axilla of the left breast and the retroareolar of the left breast were scanned. A left axillary ultrasound. Redemonstrated large axillary lymph node measuring 4.9 x 1.3 x 1.4 cm versus 4.9 x 2.6 x 1.2 cm, previously. Relatively unchanged. The cortex is uniformly thin and fatty hilum is preserved. A reactive/post inflammatory etiology is favored. Given size, ongoing short interval follow-up can be performed. Overall Assessment: Probably benign, BI-RAD 3 Management: Diagnostic Mammogram of both breasts in 6 months. Diagnostic Breast Ultrasound of the left breast in 6 months. Back in 6 months for annual exam of both breasts. Total one-year follow-up of the prominent left axillary lymph node. A clinical breast exam by your physician is recommended on an annual basis and results should be correlated with mammographic findings. This exam should not preclude additional follow-up of suspicious palpable abnormalities. Results were given to the patient verbally at the time of exam. Electronically signed and approved by: Gera Malagon M.D. Radiologist
== END | disposition home or self-care (01) ==
LOC: RADMAMWWP 11:10
PROVIDERS: ATTEND Surgery
DX: N63.0 Unspecified lump in unspecified breast
CPT/HCPCS: 77061; 77065